=== PATIENT | female | born 1960 | race African-American/Black ===

== ENCOUNTER → 2016-12-09 | Outpatient (CLI) | payer MEDICARE, MEDICAID ==
[~2016-12-09] MED LIST: ALBUTEROL2.5 MG/3 M HHN; CIPRO500 MG PO; COREG CR10 MG PO; COREG25 MG ORAL; FUROSEMIDE20 M1 ORAL; IBUPROFEN600 MG ORAL; LASIX40 MG PO; LINZESS145 MCG PO; LOVASTATIN20 MG ORAL; METRONIDAZOLE500 MG PO; NASONEX17 GM NS; NORCO 5-325 TA1 EAC1 ORAL; NORCO 5-325 TA1 EACH ORAL; NORCO 5-325 TA1 EACH PO; PLAVIX75 MG PO; POTASSIUM CHLO10 ME1 PO; POTASSIUM CHLO20 ME3 PO; ROBAXIN-750750 MG PO; VASOTEC2.5 MG ORAL; VASOTEC2.5 MG PO; ZOFRAN4 MG ORAL; [UNRECOGNIZED DRUG - OTHER]; inhaler
[2016-12-09 12:07] LABS: BASOPHILS % (AUTO) 1.6 % (0.0-2.0); LYMPHOCYTES % (AUTO) 36.5 % (20.0-45.0); MEAN CORPUSCULAR HEMOGLOBIN 30.6 PG (27.0-31.0); MEAN CORPUSCULAR HGB CONC 31.8 G/DL (32.0-36.0); MEAN CORPUSCULAR VOLUME 96 FL (80-99); MEAN PLATELET VOLUME 10.3 FL (6.5-10.1); PLATELET COUNT 198 K/UL (150-450); RED CELL DISTRIBUTION WIDTH 13.4 % (11.6-14.8); WHITE BLOOD COUNT 6.2 K/UL (4.8-10.8)
[2016-12-09 12:26] LABS: ALANINE AMINOTRANSFERASE 16 U/L (3-33); ALBUMIN/GLOBULIN RATIO 1.3 (1.0-2.7); ANION GAP 20 (5-15); ASPARTATE AMINO TRANSFERASE 19 U/L (5-40); CALCIUM 9.5 mg/dL (8.6-10.2); CARBON DIOXIDE 20 mEQ/L (20-30); CHLORIDE 98 mEQ/L (98-107); CHOLESTEROL 203 mg/dL (< 200); CHOLESTEROL/HDL RATIO 2.8 (3.3-4.4); GLOMERULAR FILTRATION RATE > 60 mL/min (>60); HEMOLYSIS 5; LDL CHOLESTEROL (CALC.) 103 mg/dL (60-99); POTASSIUM 3.5 mEQ/L (3.4-4.9); SODIUM 138 mEQ/L (135-145)
== END | disposition home or self-care (01) ==
LOC: LAB 11:38
DX: I50.9 Heart failure, unspecified (principal); I10 Essential (primary) hypertension
CPT/HCPCS: 36415; 80053; 80061; 85025

== ENCOUNTER 2017-01-27 19:14 | Emergency (ER) | payer MEDICARE, OTHER ==
[~2017-01-27] VITALS: Ht 154.9 cm; Wt 53.1 kg
--- NOTE | 2017-01-27 20:04 | Emergency Room Report ---
History of Present Illness General Chief Complaint: Abdominal Pain Source: Patient Present Illness HPI Patient present with 2 days of nausea vomiting she also developed diarrhea today had 2 episodes Diffuse abdominal cramping Denies any fevers or chills denies any recent travel Denies any chest pain or shortness of breath patient reports that She had called her primary physician's office and was told to come to the emergency room denies any blood in the vomit or stool Describes the pain as 5/10 and cramping Allergies: Coded Allergies: No Known Allergies (Verified , 09/08/12) Patient History Past Medical History: see triage record Pertinent Family History: none : 4 Para: 2 Reviewed Nursing Documentation: PMH: Agreed, PSxH: Agreed Nursing Documentation-PMH Hx Cardiac Problems: Yes - Defibilator on L chest, Cardiomyopathy, CHF Hx Hypertension: Yes Hx Pacemaker: Yes - 2005 Hx Asthma: Yes Hx COPD: Yes Hx Cancer: No Hx Gastrointestinal Problems: Yes Hx Neurological Problems: Yes Hx Cerebrovascular Accident: Yes - over 10 years ago Hx Seizures: Yes - 30 years ago Hx Weakness: Yes - right-sided weakness Review of Systems All Other Systems: negative except mentioned in HPI Physical Exam Vital Signs Date Time Temp Pulse Resp B/P Pulse Ox O2 Delivery O2 Flow Rate FiO2 01/27/17 19:31 98.1 64 16 103/64 100 Room Air Sp02 EP Interpretation: reviewed, normal General Appearance: well appearing, no apparent distress Head: normocephalic, atraumatic Eyes: bilateral eye EOMI, bilateral eye PERRL ENT: hearing grossly normal, normal pharynx, TMs + canals normal, uvula midline Neck: full range of motion, supple, no meningismus, no bony tend Respiratory: lungs clear, normal breath sounds, no rhonchi, no respiratory distress, no retraction, no accessory muscle use Cardiovascular #1: normal peripheral pulses, regular rate, rhythm, no gallop, no JVD, no murmur Gastrointestinal: normal bowel sounds, soft, no mass, no organomegaly, non- distended, no guarding, no hernia, no pulsatile mass, no rebound, tenderness - While is and the patient fell sounds she showed signs of discomfort on palpation diffusely Genitourinary: no CVA tenderness Musculoskeletal: normal inspection Neurologic: oriented x3, responsive, motor strength/tone normal, sensory intact Skin: normal color, no rash, warm/dry, palpation normal Lymphatic: normal inspection, no adenopathy Medical Decision Making Diagnostic Impression: Primary Impression: Abdominal pain Additional Impression: Refusal of care by patient ER Course After further discussion and evaluation multiple differentials are considered Patient has also had previous history of diverticulitis Other differentials such as cholecystitis gastroenteritis, name a few are considered Patient had initial baseline blood work initiated mony ODT was ordered The nurse notified me that the patient wanted to see me, going back to see the patient She reports that she does not feel that she's being seen appropriately, she reports that I have seen her 3 times and have done the same thing in the past I informed the patient that I do not recall seeing her personally But I do see that she has had previous diverticulitis Patient however has had multiple CAT scan imaging, I did not feel given her hemodynamic stability in her clinical evaluation she required one at this time however we would be starting out with blood work, to get initial evaluation Patient also felt that I did not examine her as far as the same to her heart and I did notify her that that as well as doing well she was sitting in the chair, and also sent to the upper part of her chest Patient became verbally loud and aggressive I asked her to please not yell Patient began using profanity cursing using the F word And left the emergency room without any further workup Last Vital Signs Date Time Temp Pulse Resp B/P Pulse Ox O2 Delivery O2 Flow Rate FiO2 01/27/17 19:31 98.1 64 16 103/64 100 Room Air Status: unchanged Disposition: ELOPED Condition: Unknown PHUONG PETERSON D.O. Jan 27, 2017 20:03
[2017-01-27 20:25] VITALS: BP 115/80
== END 2017-01-27 20:25 | disposition left against medical advice (07) ==
LOC: EMR 20:01
DX: Z53.21 Procedure and treatment not carried out due to patient leaving prior to being seen by health care provider (principal); R10.9 Unspecified abdominal pain; I50.9 Heart failure, unspecified; I42.9 Cardiomyopathy, unspecified; I10 Essential (primary) hypertension; J45.909 Unspecified asthma, uncomplicated; J44.9 Chronic obstructive pulmonary disease, unspecified; I69.851 Hemiplegia and hemiparesis following other cerebrovascular disease affecting right dominant side; Z95.810 Presence of automatic (implantable) cardiac defibrillator; K57.90 Diverticulosis of intestine, part unspecified, without perforation or abscess without bleeding
CPT/HCPCS: 99282

== ENCOUNTER 2017-08-12 23:08 | Emergency (ER) | payer MEDICARE, OTHER ==
[~2017-08-12] VITALS: Ht 154.9 cm; Wt 55.8 kg
[2017-08-12 23:50] VITALS: BP 91/53
[2017-08-13] MEDS ORDERED: HYDROCODON-ACE1 EA15 ORAL (00:51)
--- NOTE | 2017-08-13 00:51 | Emergency Room Report ---
History of Present Illness General Chief Complaint: Lower Extremity Injury Source: Patient Present Illness HPI Is a 56-year-old female with no significant past medical history. She presents with chief complaint of left fifth toe pain. She actually kicked the vacuum aircraft cleaner. There is deformity to toe. Pain is 9/10. Worse with walking. No other injury. Allergies: Coded Allergies: No Known Allergies (Verified , 08/12/17) Patient History Past Medical History: see triage record, old chart reviewed Past Surgical History: other Pertinent Family History: none Social History: Denies: smoking Last Menstrual Period: n/a Now: No Immunizations: other Reviewed Nursing Documentation: PMH: Agreed, PSxH: Agreed Nursing Documentation-PMH Past Medical History: No History, Except For Hx Cardiac Problems: Yes - Defibilator on L chest, Cardiomyopathy, CHF Hx Hypertension: Yes Hx Pacemaker: Yes - 2005 Hx Asthma: Yes Hx COPD: Yes Hx Cancer: No Hx Gastrointestinal Problems: Yes - DIVERTICULITS Hx Neurological Problems: Yes Hx Cerebrovascular Accident: Yes - over 10 years ago Hx Seizures: Yes - 30 years ago Hx Weakness: Yes - right-sided weakness Review of Systems Eye: Denies: eye pain, blurred vision ENT: Denies: ear pain, nose congestion, throat swelling Respiratory: Denies: cough, shortness of breath Cardiovascular: Denies: chest pain, palpitations Gastrointestinal: Denies: abdominal pain, diarrhea, nausea, vomiting Musculoskeletal: Reports: joint pain, Denies: back pain Skin: Denies: rash Neurological: Denies: headache, numbness Endocrine: Denies: increased thirst, increased urine Hematologic/Lymphatic: Denies: easy bruising All Other Systems: negative except mentioned in HPI Physical Exam Vital Signs Date Time Temp Pulse Resp B/P (MAP) Pulse Ox O2 Delivery O2 Flow Rate FiO2 08/12/17 23:42 97.9 62 16 91/53 100 Room Air vitals normal Sp02 EP Interpretation: reviewed, normal General Appearance: well appearing, no apparent distress, alert Head: normocephalic, atraumatic Eyes: bilateral eye PERRL, bilateral eye EOMI ENT: hearing grossly normal, normal pharynx Neck: full range of motion, supple, no meningismus Respiratory: chest non-tender, lungs clear, normal breath sounds Cardiovascular #1: regular rate, rhythm, no murmur Gastrointestinal: normal bowel sounds, non tender, no mass, no organomegaly, no bruit, non-distended Musculoskeletal: back normal, gait/station normal, normal range of motion, other - left little toe with deformity Neurologic: alert, oriented x3, responsive Psychiatric: mood/affect normal Skin: warm/dry Procedures Joint Reduction Joint Reduction : Consent: Verbal Joint Reduction Site: other - Left fifth toe Procedural Sedation: No Reduction Attempts: One Pre-Procedure NV Exam: Yes Post-Procedure NV Exam: Yes Post Joint Reduction Film: joint reduced Patient Tolerated: Well Complications: None Progress I did a hematoma block. Toe straightened out and tammy taped to the fourth toe. Patient tolerated procedure without a problem. Medical Decision Making Diagnostic Impression: Primary Impression: Toe fracture, left Qualified Codes: S92.912A - Unspecified fracture of left toe(s), initial encounter for closed fracture ER Course She was a toe fracture. No dislocation. We'll discharge him. Other X-Ray Diagnostic Results Other X-Ray Diagnostic Results : X-Ray ordered: Left toe x-ray # of Views/Limited Vs Complete: 3 View Indication: Pain EP Interpretation: Yes Interpretation: no dislocation, no soft tissue swelling, other - Fracture of the fifth phalanx Impression: Other - Left fifth toe fracture Electronically Signed by: Electronically signed by Zackery Link MD Last Vital Signs Date Time Temp Pulse Resp B/P (MAP) Pulse Ox O2 Delivery O2 Flow Rate FiO2 08/12/17 23:50 97.9 63 16 91/53 100 Room Air Status: improved Disposition: HOME, SELF-CARE Condition: Stable Scripts Hydrocodone/Acetaminophen 5-325* (HYDROCODONE/ACETAMINOPHEN 5-325*) 1 Each Tablet 1 TAB ORAL Q6H Y for For Pain, #20 TAB 0 Refills Prov: ZACKERY LINK M.D. 08/13/17 Additional Instructions: Followup with your DrPapito in 7 days. Return it worse. ZACKERY LIKN M.D. Aug 13, 2017 00:51
[2017-08-13 01:05] VITALS: BP 105/55
--- NOTE | 2017-08-13 11:46 | Diagnostic Imaging Report ---
Indication: TRAUMA Technique: 3 views of the left fifth toe Comparison: None Findings: There is a fracture of the medial aspect of the head of the fifth proximal phalanx. This is minimally displaced. Impression: Positive for fifth proximal phalangeal head fracture This agrees with the emergency department physician report described in the electronic medical record
== END 2017-08-13 01:05 | disposition home or self-care (01) ==
LOC: EMR 23:59
DX: S92.502A Displaced unspecified fracture of left lesser toe(s), initial encounter for closed fracture (principal); W22.8XXA Striking against or struck by other objects, initial encounter; Y93.9 Activity, unspecified; Y99.9 Unspecified external cause status; M79.675 Pain in left toe(s)
CPT/HCPCS: 99283

== ENCOUNTER 2018-01-16 12:10 | Outpatient (CLI) | payer MEDICARE, OTHER ==
[~2018-01-16 12:10] MED LIST changes: +HYDROCODON-ACE1 EA15 ORAL
== END 2018-01-16 14:10 | disposition home or self-care (01) ==
LOC: LAB 12:10
DX: K85.90 Acute pancreatitis without necrosis or infection, unspecified (principal)

== ENCOUNTER 2019-04-10 14:43 | Inpatient (IN) | payer MEDICARE, OTHER ==
[~2019-04-10] VITALS: Ht 165.1 cm; Wt 63.6 kg
[2019-04-10 15:00] VITALS: BP 104/67
--- NOTE | 2019-04-10 15:41 | Emergency Room Report ---
History of Present Illness General Chief Complaint: Abdominal Pain Source: Patient Present Illness HPI Patient presents with left lower quadrant pain that began yesterday. It is constant and severe. Its more anteriorly but radiates to the left flank area. She took a [place] which helped for short period of time and she took Tylenol last night. She has had this pain with diverticulitis in the past. She denies any fevers or chills. There is no nausea vomiting diarrhea hematemesis coffee grounds or blood in stool. She denies dysuria. She denies having renal stones in the past. Patient also has some R upper back/arm pain with associated numbness of forearm. No associated injuries. She states she had a stroke several years ago. Also has a implanted defibrillator for cardiomyopathy. Last month it was not working properly and she had problems with tachycardia. During the day today she felt some shortness of breath but no chest pain. There were no palpitations also. Allergies: Coded Allergies: No Known Allergies (Verified , 08/12/17) Patient History Past Medical History: see triage record Past Surgical History: pacemaker - IVCD Social History: Denies: smoking, alcohol use, drug use Social History Narrative from home Now: No Reviewed Nursing Documentation: PMH: Agreed; PSxH: Agreed Nursing Documentation-PMH Past Medical History: No History, Except For Hx Cardiac Problems: Yes - Defibilator on L chest, Cardiomyopathy, CHF Hx Hypertension: Yes Hx Pacemaker: Yes - 2005 Hx Asthma: Yes Hx COPD: Yes Hx Cancer: No Hx Gastrointestinal Problems: Yes - DIVERTICULITS Hx Neurological Problems: Yes Hx Cerebrovascular Accident: Yes - over 10 years ago Hx Seizures: Yes - 30 years ago Hx Weakness: Yes - right-sided weakness Review of Systems All Other Systems: negative except mentioned in HPI Physical Exam Vital Signs Date Time Temp Pulse Resp B/P (MAP) Pulse Ox O2 Delivery O2 Flow Rate FiO2 04/10/19 14:51 98.2 70 20 114/63 (80) 100 Room Air Sp02 EP Interpretation: reviewed, normal General Appearance: well appearing, no apparent distress, GCS 15 Head: normocephalic Eyes: bilateral eye normal inspection, bilateral eye PERRL, bilateral eye EOMI ENT: moist mucus membranes Neck: supple Respiratory: lungs clear, normal breath sounds Cardiovascular #1: regular rate, rhythm Cardiovascular #2: 2+ radial (R) Gastrointestinal: normal inspection, normal bowel sounds, no mass, non- distended, no rebound, guarding - Left lower quadrant, tenderness Musculoskeletal: back normal, gait/station normal, normal range of motion Neurologic: alert, oriented x3 Skin: normal inspection, warm/dry Medical Decision Making Diagnostic Impression: Primary Impression: Abdominal pain Qualified Codes: R10.32 - Left lower quadrant pain Additional Impression: Right arm pain ER Course Patient presents with left lower quadrant and flank pain for 2 days. Differential includes renal stone, diverticulitis, urinary tract infection, pyelonephritis amongst others. Evaluation will be with EKG, chest x-ray CT the abdomen and pelvis and labs. The patient will receive gentle IV hydration, Reglan, Benadryl and morphine. Based on the exam right now most likely she will need to be admitted to the hospital for observation and possible surgical intervention as diverticulitis is high in the list. Patient has the comorbidity of cardiomyopathy. Difficulty starting an IV. EKG without injury. Chest x-ray with pacemaker. Labs with normal white count. CMP normal. Lipase normal. Urinalysis unremarkable. Patient required several doses of pain medication. CT abdomen without surgical pathology. Etiology of the pain is unclear. Patient is to be admitted to the hospital for further evaluation. Pain somewhat improved. Abdomen with tenderness, no guarding or rebound and no referred pain. Admit medical floor Dr. Montoya. Laboratory Tests Test 04/10/19 16:55 White Blood Count 4.3 K/UL (4.8-10.8) L Red Blood Count 4.07 M/UL (4.20-5.40) L Hemoglobin 12.5 G/DL (12.0-16.0) Hematocrit 36.5 % (37.0-47.0) L Mean Corpuscular Volume 90 FL (80-99) Mean Corpuscular Hemoglobin 30.7 PG (27.0-31.0) Mean Corpuscular Hemoglobin Concent 34.2 G/DL (32.0-36.0) Red Cell Distribution Width 11.8 % (11.6-14.8) Platelet Count 160 K/UL (150-450) Mean Platelet Volume 8.4 FL (6.5-10.1) Neutrophils (%) (Auto) 44.7 % (45.0-75.0) L Lymphocytes (%) (Auto) 45.9 % (20.0-45.0) H Monocytes (%) (Auto) 5.6 % (1.0-10.0) Eosinophils (%) (Auto) 1.9 % (0.0-3.0) Basophils (%) (Auto) 2.0 % (0.0-2.0) Prothrombin Time 11.1 SEC (9.30-11.50) Prothrombin Time INR 1.0 (0.9-1.1) PTT 29 SEC (23-33) Sodium Level 142 MMOL/L (136-145) Potassium Level 3.5 MMOL/L (3.5-5.1) Chloride Level 105 MMOL/L (98-107) Carbon Dioxide Level 24 MMOL/L (21-32) Anion Gap 13 mmol/L (5-15) Blood Urea Nitrogen 20 mg/dL (7-18) H Creatinine 1.3 MG/DL (0.55-1.30) Estimate Glomerular Filtration Rate 51.4 mL/min (>60) Glucose Level 92 MG/DL (74-106) Calcium Level 9.9 MG/DL (8.5-10.1) Total Bilirubin 0.4 MG/DL (0.2-1.0) Aspartate Amino Transferase (AST) 25 U/L (15-37) Alanine Aminotransferase (ALT) 35 U/L (12-78) Alkaline Phosphatase 139 U/L (46-116) H Troponin I 0.015 ng/mL (0.000-0.056) Total Protein 8.4 G/DL (6.4-8.2) H Albumin 4.4 G/DL (3.4-5.0) Globulin 4.0 g/dL Albumin/Globulin Ratio 1.1 (1.0-2.7) Lipase 107 U/L (73-393) EKG Diagnostic Results Rate: normal Rhythm: NSR ST Segments: no acute changes Rhythm Strip Diag. Results EP Interpretation: yes Rhythm: NSR, no PVC's, no ectopy Chest X-Ray Diagnostic Results Chest X-Ray Diagnostic Results : Chest X-Ray Ordered: Yes # of Views/Limited/Complete: 1 View Indication: Other EP Interpretation: Yes Interpretation: no consolidation, no effusion, no pneumothorax, other - pacemaker CT/MRI/US Diagnostic Results CT/MRI/US Diagnostic Results : Imaging Test Ordered: CT abd pelvis Impression no acute findings Last Vital Signs Date Time Temp Pulse Resp B/P (MAP) Pulse Ox O2 Delivery O2 Flow Rate FiO2 04/11/19 00:00 97.9 62 18 110/62 (78) 100 04/10/19 22:20 Room Air Status: improved Disposition: ADMITTED INPATIENT Condition: Serious Stephen Rees MD Apr 10, 2019 15:41
[2019-04-10] MEDS ORDERED: Isovue-300 100ml vial INJ PRN (15:45)
[2019-04-10] MEDS ORDERED: DiphenhydrAMINE 50mg/ml Inj IVP ONE (15:45)
[2019-04-10] MEDS ORDERED: Metoclopramide 10mg/2ml Inj IVP ONE (15:45)
[2019-04-10] MEDS ORDERED: Morphine Sulfate 4mg/ml Inj (IV USE ONLY) IVP ONE (15:45)
[2019-04-10] MEDS: Sodium Chloride 550 ML IV SCH ×2 (16:00→19:25)
[2019-04-10] MEDS ORDERED: Morphine Sulfate 10mg/ml Inj IM ONE (16:30)
--- NOTE | 2019-04-10 16:53 | Diagnostic Imaging Report ---
EXAM: XR Chest, 1 View CLINICAL HISTORY: ABD PAIN TECHNIQUE: Frontal view of the chest. COMPARISON: Chest x-ray 04/30/15 FINDINGS: Lungs: Unremarkable. No consolidation. Pleural space: Unremarkable. No pneumothorax. Heart: Unremarkable. No cardiomegaly. Mediastinum: Unremarkable. Bones/joints: Unremarkable. Tubes, lines and devices: Cardiac pacemaker. IMPRESSION: No acute findings.
[2019-04-10 17:15] LABS: EOSINOPHILS % (AUTO) 1.9 % (0.0-3.0); HEMATOCRIT 36.5 % (37.0-47.0); HEMOGLOBIN 12.5 G/DL (12.0-16.0); LYMPHOCYTES % (AUTO) 45.9 % (20.0-45.0); MEAN CORPUSCULAR VOLUME 90 FL (80-99); MONOCYTES % (AUTO) 5.6 % (1.0-10.0); NEUTROPHILS % (AUTO) 44.7 % (45.0-75.0); PLATELET COUNT 160 K/UL (150-450); RED BLOOD COUNT 4.07 M/UL (4.20-5.40); RED CELL DISTRIBUTION WIDTH 11.8 % (11.6-14.8); WHITE BLOOD COUNT 4.3 K/UL (4.8-10.8)
[2019-04-10 17:26] LABS: ANION GAP 13 mmol/L (5-15); BLOOD UREA NITROGEN 20 mg/dL (7-18); CALCIUM 9.9 MG/DL (8.5-10.1); CARBON DIOXIDE 24 MMOL/L (21-32); CHLORIDE 105 MMOL/L (98-107); CREATININE 1.3 MG/DL (0.55-1.30); POTASSIUM 3.5 MMOL/L (3.5-5.1); SODIUM 142 MMOL/L (136-145)
[2019-04-10 17:30] LABS: ALANINE AMINOTRANSFERASE 35 U/L (12-78); ALBUMIN 4.4 G/DL (3.4-5.0); ALBUMIN/GLOBULIN RATIO 1.1 (1.0-2.7); ALKALINE PHOSPHATASE 139 U/L (46-116); ASPARTATE AMINO TRANSFERASE 25 U/L (15-37); BILIRUBIN,TOTAL 0.4 MG/DL (0.2-1.0)
[2019-04-10 19:30] VITALS: BP 114/85
--- NOTE | 2019-04-10 19:54 | Diagnostic Imaging Report ---
EXAM: CT Abdomen and Pelvis Without Intravenous Contrast CLINICAL HISTORY: ABD PAIN TECHNIQUE: Axial computed tomography images of the abdomen and pelvis without intravenous contrast. CTDI is 0.15, 11.66 mGy and DLP is 614 mGy-cm. One or more of the following dose reduction techniques were used: automated exposure control, adjustment of the mA and/or kV according to patient size, use of iterative reconstruction technique. COMPARISON: 05/28/2016 FINDINGS: Lung bases: Unremarkable. No mass. No consolidation. Heart: Small pericardial effusion. Mediastinum: Small hiatal hernia. ABDOMEN: Liver: Unremarkable. Gallbladder and bile ducts: Unremarkable. No calcified stones. Pancreas: Unremarkable. Spleen: Unremarkable. Adrenals: Unremarkable. Kidneys and ureters: Unremarkable. No obstructing stones. No hydronephrosis. Stomach and bowel: Unremarkable. Bowel is nondilated. PELVIS: Appendix: No findings to suggest acute appendicitis. Bladder: Unremarkable. No calcified stones. Reproductive: Uterus is absent. ABDOMEN and PELVIS: Intraperitoneal space: Unremarkable. No free air. Bones/joints: No acute osseous abnormality. Similar indeterminate sclerotic focus in the left superior pubic ramus is favored to represent a bone island. Soft tissues: Small fat-containing ventral lower abdominal wall hernia. Vasculature: Unremarkable. No abdominal aortic aneurysm. Lymph nodes: Unremarkable. Tubes, lines and devices: Cardiac pacemaker. IMPRESSION: No acute findings.
[2019-04-10] MEDS ORDERED: Morphine Sulfate 4mg/ml Inj (IV USE ONLY) IVP PRN (20:00)
[2019-04-10] MEDS ORDERED: Cefepime HCl 1 GM in D5W 55 ML IVPB ONE (20:00)
[2019-04-10] MEDS ORDERED: NORCO 10-325 T1 EACH ORAL (21:10)
[2019-04-10] MEDS ORDERED: FUROSEMIDE40 MG ORAL (21:10)
[2019-04-10] MEDS ORDERED: MIRALAX119 GM PO (21:10)
[2019-04-10] MEDS ORDERED: NORVASC2.5 MG ORAL (21:10)
[2019-04-10 22:00] VITALS: BP 114/66
[2019-04-10] MEDS ORDERED: Miralax 17gm pkt ORAL PRN (23:15)
[2019-04-10] MEDS ORDERED: HYDROcodone/Acetamin 10/325 tab ORAL PRN (23:15)
[2019-04-11] VITALS: BP 110/62
[2019-04-11] MEDS ORDERED: Miralax 17gm pkt ORAL PRN
[2019-04-11] MEDS: Atorvastatin 20mg tab ORAL SCH ×2 (00:21→20:33)
[2019-04-11] MEDS: Morphine Sulfate 4mg/ml Inj (IV USE ONLY) IVP PRN ×4 (00:22→17:24)
[2019-04-11 04:00] VITALS: BP 114/67
[2019-04-11 06:53] LABS: HEMATOCRIT 31.8 % (37.0-47.0); HEMOGLOBIN 10.5 G/DL (12.0-16.0); MEAN CORPUSCULAR VOLUME 94 FL (80-99); PLATELET COUNT 136 K/UL (150-450); RED BLOOD COUNT 3.38 M/UL (4.20-5.40); RED CELL DISTRIBUTION WIDTH 12.7 % (11.6-14.8); WHITE BLOOD COUNT 3.3 K/UL (4.8-10.8)
[2019-04-11 07:03] LABS: ALANINE AMINOTRANSFERASE 31 U/L (12-78); ALBUMIN 3.5 G/DL (3.4-5.0); ALKALINE PHOSPHATASE 105 U/L (46-116); ANION GAP 9 mmol/L (5-15); ASPARTATE AMINO TRANSFERASE 22 U/L (15-37); BILIRUBIN,TOTAL 0.6 MG/DL (0.2-1.0); BLOOD UREA NITROGEN 15 mg/dL (7-18); CALCIUM 9.3 MG/DL (8.5-10.1); CARBON DIOXIDE 27 MMOL/L (21-32); CHLORIDE 107 MMOL/L (98-107); CREATININE 1.1 MG/DL (0.55-1.30); POTASSIUM 3.2 MMOL/L (3.5-5.1); SODIUM 143 MMOL/L (136-145)
[2019-04-11 08:00] VITALS: BP 91/57
[2019-04-11] MEDS ORDERED: Enalapril 2.5mg tab ORAL SCH (09:00)
[2019-04-11] MEDS ORDERED: Carvedilol 25mg Tab ORAL SCH (09:00)
[2019-04-11] MEDS: Furosemide 40mg tab ORAL SCH ×2 (09:00→17:24)
[2019-04-11] MEDS ORDERED: NS 500ML ONE (09:07)
[2019-04-11] MEDS ORDERED: 1/2 NS 1000ml IV ONE (09:07)
[2019-04-11 09:53] LABS: FERRITIN 148 NG/ML (8-388); GAMMA GLUTAMYL TRANSPEPTIDASE 18 U/L (5-85); PHOSPHORUS 3.7 MG/DL (2.5-4.9)
[2019-04-11 10:06] LABS: % IRON SATURATION 38 % (15-50); IRON 113 ug/dL (50-175); TOTAL IRON BINDING CAPACITY 294 ug/dL (250-450)
[2019-04-11] MEDS ORDERED: Sorbitol Solution UD 30ml ORAL SCH (10:31)
[2019-04-11 12:00] VITALS: BP 105/59
[2019-04-11] MEDS: HYDROcodone/Acetamin 5/325 tab ORAL PRN ×2 (13:20→20:35)
[2019-04-11 13:58] LABS: BILIRUBIN, URINE NEGATIVE (NEGATIVE); COLOR,URINE PALE YELLOW; GLUCOSE, URINE (UA) NEGATIVE (NEGATIVE); KETONES,URINE NEGATIVE (NEGATIVE); LEUKOCYTE ESTERASE ,URINE 2+ (NEGATIVE); NITRITE,URINE NEGATIVE (NEGATIVE); PH,URINE 6 (4.5-8.0); PROTEIN,URINE NEGATIVE (NEGATIVE); UROBILINOGEN,URINE NORMAL MG/DL (0.0-1.0)
[2019-04-11 13:59] LABS: APPEARANCE,URINE SLIGHTLY CLOUDY
--- NOTE | 2019-04-11 13:59 | General Progress Note ---
Assessment/Plan Assessment/Plan: (1) Abdominal pain (2) Diverticulitis Patient will be continued on Morphine and norco D/w Dr. Rico and he concurred. Subjective Date patient seen: Apr 11, 2019 Time patient seen: 13:56 Constitutional: Reports: weakness HEENT: Reports: no symptoms Cardiovascular: Reports: no symptoms Respiratory: Reports: no symptoms Gastrointestinal/Abdominal: Reports: abdominal pain Genitourinary: Reports: no symptoms Neurologic/Psychiatric: Reports: weakness Endocrine: Reports: no symptoms Hematologic/Lymphatic: Reports: no symptoms Allergies: Coded Allergies: No Known Allergies (Verified , 08/12/17) Subjective Patient is a known patient from prior admission and has been admitted under the care fo Dr. Montoya with Abd pain. She was started on morphine 4mg IV Q4H PRN and norco 10/325mg PO 1 tab BID PRN. Objective Last 24 Hour Vital Signs Date Time Temp Pulse Resp B/P (MAP) Pulse Ox O2 Delivery O2 Flow Rate FiO2 04/11/19 12:00 97.2 62 18 105/59 (74) 100 04/11/19 09:00 94/53 04/11/19 09:00 60 94/53 04/11/19 09:00 60 94/53 04/11/19 09:00 Room Air 04/11/19 08:00 97.2 60 91/57 (68) 100 04/11/19 04:00 98.1 63 18 114/67 (83) 98 04/11/19 00:00 97.9 62 18 110/62 (78) 100 04/10/19 22:20 Room Air 04/10/19 22:00 97.6 60 18 114/66 (82) 100 04/10/19 21:13 98.4 72 18 110/52 98 Room Air 04/10/19 20:26 98.4 04/10/19 19:30 98.0 62 18 114/85 100 Room Air 04/10/19 15:00 98.0 60 18 104/67 100 Room Air 04/10/19 15:00 60 18 Room Air 04/10/19 14:51 98.2 70 20 114/63 (80) 100 Room Air Intake and Output 04/10/19 04/11/19 19:00 07:00 Intake Total 0 ml 100 ml Balance 0 ml 100 ml Intake Oral 0 ml Other 100 ml # Voids 2 Laboratory Tests 04/10/19 16:55: White Blood Count 4.3L, Red Blood Count 4.07L, Hemoglobin 12.5, Hematocrit 36.5L , Mean Corpuscular Volume 90, Mean Corpuscular Hemoglobin 30.7, Mean Corpuscular Hemoglobin Concent 34.2, Red Cell Distribution Width 11.8, Platelet Count 160, Mean Platelet Volume 8.4, Neutrophils (%) (Auto) 44.7L, Lymphocytes ( %) (Auto) 45.9H, Monocytes (%) (Auto) 5.6, Eosinophils (%) (Auto) 1.9, Basophils (%) (Auto) 2.0, Prothrombin Time 11.1, Prothromb Time International Ratio 1.0, Activated Partial Thromboplast Time 29, Sodium Level 142, Potassium Level 3.5, Chloride Level 105, Carbon Dioxide Level 24, Anion Gap 13, Blood Urea Nitrogen 20H, Creatinine 1.3, Estimat Glomerular Filtration Rate 51.4, Glucose Level 92, Calcium Level 9.9, Total Bilirubin 0.4, Aspartate Amino Transf (AST/SGOT) 25, Alanine Aminotransferase (ALT/SGPT) 35, Alkaline Phosphatase 139H, Troponin I 0.015, Total Protein 8.4H, Albumin 4.4, Globulin 4.0, Albumin/Globulin Ratio 1.1, Lipase 107 04/11/19 04:45: White Blood Count 3.3L, Red Blood Count 3.38L, Hemoglobin 10.5L, Hematocrit 31.8L, Mean Corpuscular Volume 94, Mean Corpuscular Hemoglobin 31.1H, Mean Corpuscular Hemoglobin Concent 33.1, Red Cell Distribution Width 12.7, Platelet Count 136L, Mean Platelet Volume 10.3H, Neutrophils (%) (Auto) , Lymphocytes (% ) (Auto) , Monocytes (%) (Auto) , Eosinophils (%) (Auto) , Basophils (%) (Auto) , Sodium Level 143, Potassium Level 3.2L, Chloride Level 107, Carbon Dioxide Level 27, Anion Gap 9, Blood Urea Nitrogen 15, Creatinine 1.1, Estimat Glomerular Filtration Rate > 60, Glucose Level 91, Calcium Level 9.3, Total Bilirubin 0.6, Aspartate Amino Transf (AST/SGOT) 22, Alanine Aminotransferase ( ALT/SGPT) 31, Alkaline Phosphatase 105, Total Protein 6.9, Albumin 3.5, Globulin 3.4, Albumin/Globulin Ratio 1.0, Differential Total Cells Counted 100, Neutrophils % (Manual) 49, Lymphocytes % (Manual) 43, Monocytes % (Manual) 6, Eosinophils % (Manual) 2, Basophils % (Manual) 0, Band Neutrophils 0, Platelet Estimate DecreasedL, Platelet Morphology Normal, Red Blood Cell Morphology Normal, Hemoglobin A1c 5.2, Uric Acid 6.7, Phosphorus Level 3.7, Magnesium Level 1.5L, Iron Level 113, Total Iron Binding Capacity 294, Percent Iron Saturation 38, Unsaturated Iron Binding 181, Ferritin 148, Gamma Glutamyl Transpeptidase 18, C-Reactive Protein, Quantitative < 0.4, Vitamin B12 Level 342 , Folate 11.4 04/11/19 13:32: Urine Color [Pending], Urine Appearance [Pending], Urine pH [Pending], Urine Specific [place] [Pending], Urine Protein [Pending], Urine Glucose (UA) [Pending ], Urine Ketones [Pending], Urine Blood [Pending], Urine Nitrite [Pending], Urine Bilirubin [Pending], Urine Urobilinogen [Pending], Urine Leukocyte Esterase [Pending], Urine RBC [Pending], Urine WBC [Pending], Urine Squamous Epithelial Cells [Pending], Urine Bacteria [Pending] Height (Feet): 5 Height (Inches): 1.00 Weight (Pounds): 140 General Appearance: no apparent distress, alert EENT: PERRL/EOMI, normal ENT inspection Neck: non-tender, normal alignment Cardiovascular: normal rate, regular rhythm Respiratory/Chest: lungs clear, normal breath sounds Abdomen: tender Extremities: non-tender Edema: no edema noted Arm (L), no edema noted Arm (R), no edema noted Leg (L), no edema noted Leg (R), no edema noted Pedal (L), no edema noted Pedal (R), no edema noted Generalized Neurologic: alert, oriented x 3 Skin: warm/dry Dameon Silva Apr 11, 2019 13:59
[2019-04-11 16:00] VITALS: BP 97/66
--- NOTE | 2019-04-11 17:15 | Consultation ---
DATE OF CONSULTATION: 04/11/2019 INFECTIOUS DISEASE CONSULT CONSULTING PHYSICIAN: Josep Henderson M.D. PRIMARY ATTENDING: Мария Montoya M.D. REASON FOR CONSULT: Abdominal pain. HISTORY OF PRESENT ILLNESS: This is a 58-year-old female admitted last evening complaining of abdominal pain in lower abdomen. The patient states that she had history of diverticulitis before. She had history of abdominal pain and is followed in outpatient by Dr. Macario. Has nausea, but no vomiting. No diarrhea. No blood in stool. PAST MEDICAL HISTORY: Significant for COPD, history of diverticulitis, history of CVA with right-sided weakness, anemia, chronic pain syndrome. Has pacemaker. ALLERGIES: No known drug allergies. MEDICATIONS: Getting amlodipine, carvedilol, Plavix, enalapril, Lasix, potassium chloride, MiraLAX, Weiner, Zofran, sodium chloride, atorvastatin. Got a dose of cefepime in the ER. REVIEW OF SYSTEMS: No fever. No chills. No chest pain. No coughing. Lower abdominal pain. No dysuria. PAST SURGICAL HISTORY: The patient says that history of cholecystectomy, has hysterectomy, history of colon polyps removed during colonoscopy 3 years ago. PHYSICAL EXAMINATION: VITAL SIGNS: Temperature 97.6, pulse 62, blood pressure 105/59. GENERAL APPEARANCE: No acute distress. Seems to be thin. HEAD AND NECK: No oral lesion. Slightly dry mouth. HEART: Normal rate. Has pacemaker. LUNGS: Clear. ABDOMEN: Soft. Tender, more in the lower quadrants. EXTREMITIES: Has no edema. LABORATORY AND DIAGNOSTIC DATA: Sodium 143, potassium 3.2, chloride 107, bicarbonate 27, BUN 15, creatinine 1.5. WBC 3.3, hemoglobin 10.5, hematocrit 31.8, platelets 136. A CT scan of the abdomen and pelvis, no acute findings. Chest x-ray, no acute finding. IMPRESSION: Abdominal pain. The patient may have irritable bowel syndrome. Has chronic pain syndrome. The patient has history of smoking and cocaine abuse in the past. Has history of diverticulitis. Has anemia, COPD, status post pacemaker defibrillator. RECOMMENDATION: Observe off antibiotic. The patient will be followed by GI specialist. At the end of my exam, I thank Dr. Montoya for involving me in the care of this patient. Josep Henderson M.D. DR: VÍCTOR JOB#: [id number] CC:
[2019-04-11 20:00] VITALS: BP 98/48
[2019-04-11] MEDS ORDERED: POLYETHYLENE GL17 GM ORAL (20:28)
--- NOTE | 2019-04-11 20:34 | General Progress Note ---
Assessment/Plan Assessment/Plan: GI CONSULT DICTATED THANK YOU Abdulaziz PATEL MD Subjective Allergies: Coded Allergies: No Known Allergies (Verified , 08/12/17) Objective Last 24 Hour Vital Signs Date Time Temp Pulse Resp B/P (MAP) Pulse Ox O2 Delivery O2 Flow Rate FiO2 04/11/19 16:00 97.7 60 18 97/66 (76) 98 04/11/19 12:00 97.2 62 18 105/59 (74) 100 04/11/19 09:00 94/53 04/11/19 09:00 60 94/53 04/11/19 09:00 60 94/53 04/11/19 09:00 Room Air 04/11/19 08:00 97.2 60 91/57 (68) 100 04/11/19 04:00 98.1 63 18 114/67 (83) 98 04/11/19 00:00 97.9 62 18 110/62 (78) 100 04/10/19 22:20 Room Air 04/10/19 22:00 97.6 60 18 114/66 (82) 100 04/10/19 21:13 98.4 72 18 110/52 98 Room Air Intake and Output 04/10/19 04/11/19 19:00 07:00 Intake Total 0 ml 100 ml Balance 0 ml 100 ml Intake Oral 0 ml Other 100 ml # Voids 2 Laboratory Tests 04/11/19 04:45: White Blood Count 3.3L, Red Blood Count 3.38L, Hemoglobin 10.5L, Hematocrit 31.8L, Mean Corpuscular Volume 94, Mean Corpuscular Hemoglobin 31.1H, Mean Corpuscular Hemoglobin Concent 33.1, Red Cell Distribution Width 12.7, Platelet Count 136L, Mean Platelet Volume 10.3H, Neutrophils (%) (Auto) , Lymphocytes (% ) (Auto) , Monocytes (%) (Auto) , Eosinophils (%) (Auto) , Basophils (%) (Auto) , Differential Total Cells Counted 100, Neutrophils % (Manual) 49, Lymphocytes % (Manual) 43, Monocytes % (Manual) 6, Eosinophils % (Manual) 2, Basophils % ( Manual) 0, Band Neutrophils 0, Platelet Estimate DecreasedL, Platelet Morphology Normal, Red Blood Cell Morphology Normal, Sodium Level 143, Potassium Level 3.2L, Chloride Level 107, Carbon Dioxide Level 27, Anion Gap 9, Blood Urea Nitrogen 15, Creatinine 1.1, Estimat Glomerular Filtration Rate > 60 , Glucose Level 91, Hemoglobin A1c 5.2, Uric Acid 6.7, Calcium Level 9.3, Phosphorus Level 3.7, Magnesium Level 1.5L, Iron Level 113, Total Iron Binding Capacity 294, Percent Iron Saturation 38, Unsaturated Iron Binding 181, Ferritin 148, Total Bilirubin 0.6, Gamma Glutamyl Transpeptidase 18, Aspartate Amino Transf (AST/SGOT) 22, Alanine Aminotransferase (ALT/SGPT) 31, Alkaline Phosphatase 105, C-Reactive Protein, Quantitative < 0.4, Total Protein 6.9, Albumin 3.5, Globulin 3.4, Albumin/Globulin Ratio 1.0, Vitamin B12 Level 342, Folate 11.4 04/11/19 13:32: Urine Color Pale yellow, Urine Appearance Slightly cloudy, Urine pH 6, Urine Specific [place] 1.015, Urine Protein Negative, Urine Glucose (UA) Negative, Urine Ketones Negative, Urine Blood 1+H, Urine Nitrite Negative, Urine Bilirubin Negative, Urine Urobilinogen Normal, Urine Leukocyte Esterase 2+H, Urine RBC 0-2, Urine WBC 5-10H, Urine Squamous Epithelial Cells ModerateH, Urine Bacteria Few Height (Feet): 5 Height (Inches): 1.00 Weight (Pounds): 140 Julian Macario MD Apr 11, 2019 20:34
--- NOTE | 2019-04-12 00:15 | History and Physical Report ---
DATE OF ADMISSION: 04/10/2019 HISTORY OF PRESENT ILLNESS: This is a long-term office patient who is admitted for abdominal pain, diverticulitis, and low potassium as well. The patient has been having abdominal pain for one day. There is nausea and anorexia. No appetite for two to three days. The patient was admitted to rule out diverticulitis. The patient has a history of diverticulosis and diverticulitis. The patient also complains of left arm pain and also has a chronic back pain and chronic pain syndrome. Has a history of alcohol and drug abuse. Denies orthopnea. Denies shortness of breath. Denies cough. PAST MEDICAL HISTORY: CHF, hypertension, diverticulosis, hyperlipidemia, and constipation. PAST SURGICAL HISTORY: Hysterectomy and cholecystectomy. SOCIAL HISTORY: History of drug abuse. History of alcohol abuse. History of smoking. MEDICATIONS: Linzess, Lasix, Plavix, Coreg, and amlodipine. FAMILY HISTORY: Noncontributory. REVIEW OF SYSTEMS: HEENT: Denies headaches. RESPIRATORY: Denies shortness of breath. Denies cough. CARDIOVASCULAR: Denies chest pain or orthopnea. GASTROINTESTINAL: Reports nausea, abdominal pain, and anorexia for two to three days. Has chronic pain syndrome. EXTREMITIES: also has right arm pain and numbness. CENTRAL NERVOUS SYSTEM: Denies change in vision or speech pattern. PHYSICAL EXAMINATION: VITAL SIGNS: Temperature is 97.2, pulse is 60, blood pressure 91/57, and repeated blood pressure 105/59. HEENT: PERRLA. NECK: Supple. CHEST: Clear to auscultation. CARDIOVASCULAR: Regular rate and rhythm. No murmurs or extra sounds. ABDOMEN: Soft and nontender. Mild epigastric tenderness. No rebound. EXTREMITIES: No edema. Reflexes equal on both sides. Moves all four extremities. LABORATORY DATA: WBC of 4.3, hemoglobin 12.5, and platelet count 160,000. Sodium 142, potassium 3.5, BUN of 20, and creatinine 1.3. ASSESSMENT AND PLAN: Abdominal pain, diverticulitis, and hypokalemia. I have asked Dr. Stein, Dr. Armstrong, Dr. Josep Henderson, and Dr. iRco to see the patient for the pain management control as well as to rule out diverticulitis Dr. Josep Rahban as well as abdominal pain. We have consulted Dr. Armstrong, and Dr. Stein has been consulted for low potassium. Мария Montoya M.D. DR: PHOEBE JOB#: [id number] CC:
[2019-04-12] MEDS: Morphine Sulfate 4mg/ml Inj (IV USE ONLY) IVP PRN ×4 (00:33→20:21)
[2019-04-12] MEDS: HYDROcodone/Acetamin 5/325 tab ORAL PRN (02:46)
--- NOTE | 2019-04-12 03:15 | Consultation ---
DATE OF CONSULTATION: 04/11/2019 GASTROENTEROLOGY CONSULTATION CONSULTING PHYSICIAN: Julian Macario M.D. CHIEF COMPLAINT: I was asked to see this patient by Dr. Мария Montoya for evaluation of abdominal pain. HISTORY OF PRESENT ILLNESS: The patient is a pleasant 58-year-old woman who comes in to the hospital with previous history of nausea. She also complains of some lower back pain for 2 days. He has no diarrhea, vomiting, or hematochezia. The patient had been seen by me in the past as an outpatient and she has a longstanding history of constipation, treated as an outpatient with doses of Linzess and polyethylene glycol. Her last colonoscopy was in 2015 and the colonoscopy was remarkable for diffuse melanosis coli, had a diminutive sigmoid colon polyp, which showed tubular adenoma with pathology. Her last endoscopy was in 10/2015 and the endoscopy showed a 2 cm hiatal hernia and biopsies were negative for Helicobacter pylori. PAST MEDICAL HISTORY: Remarkable for history of cardiomegaly, congestive heart failure, history of ventricular tachycardia, status post ICD/pacemaker placement, history of stroke previously on Coumadin, now on Plavix, history of abnormal liver tests , chronic constipation, melanosis coli, abnormal colon polyp, 2 cm hiatal hernia. PAST SURGICAL HISTORY: Status post cholecystectomy, status post hysterectomy. ALLERGIES: No known drug allergies. FAMILY HISTORY: Positive for lupus in her sister, heart disease in mother, and heart disease requiring defibrillator in her daughter. SOCIAL HISTORY: The patient was a heavy smoker in year 2010, but she discontinued it. She smoked 1 to 2 cigarettes a day. She claims she also used crack cocaine, but she tells me she discontinued in 2010. She is and she has 2 daughters. REVIEW OF SYSTEMS: Otherwise negative. PHYSICAL EXAMINATION: GENERAL: A pleasant woman, seen in her room. HEENT: Normocephalic and atraumatic. Dentition is fair. NECK: Supple. CHEST: Clear to auscultation. CARDIOVASCULAR: Revealed a regular rate. ABDOMEN: Soft with good bowel sounds. There is some tenderness in the right side of the abdomen, more so in the right lower quadrant and right upper quadrant without significant guarding or rebound. EXTREMITIES: Revealed no edema. LABORATORY DATA: Noted. ASSESSMENT: This patient presents with abdominal pain of unclear etiology. She does have a longstanding history of constipation, but with the bowel regimen, she has been going to bathroom regularly. She has been admitted with further diagnosis of diverticulitis, but CT scan does not mention this finding and in addition, her colonoscopy from 2016 was not remarkable for any significant diverticulosis. As such, I would doubt this diagnosis. She has not had a urinalysis and therefore, check UA to rule out any urinary tract pathology such as kidney stones that can cause pain. Other etiologies include ovarian disorders. This is not seen on the CT scan however. For the time being, I will check the patient's urinalysis and place the patient on laxative regimen. Should her symptoms persist, further workup is necessary. RECOMMENDATIONS: Per above discussion and per orders written in the chart. Thank you for asking me to participate in the care of this patient. Julian Macario M.D. DR: NITIN JOB#: [id number] CC: BIANKA
[2019-04-12 04:00] VITALS: BP 100/59
[2019-04-12 08:00] VITALS: BP 90/44
[2019-04-12 08:45] VITALS: BP 100/56
[2019-04-12] MEDS ORDERED: Furosemide 40mg tab ORAL SCH (09:00)
[2019-04-12] MEDS ORDERED: Carvedilol 25mg Tab ORAL SCH (09:00)
[2019-04-12] MEDS: HYDROcodone/Acetamin 10/325 tab ORAL PRN (10:28)
[2019-04-12] MEDS ORDERED: HYDROcodone/Acetamin 5/325 tab ORAL PRN (10:30)
--- NOTE | 2019-04-12 10:35 | GI Progress Note ---
Assessment/Plan Problems: (1) Diverticulitis ICD Codes: K57.92 - Diverticulitis SNOMED: 194368125 (2) Abdominal pain ICD Codes: R10.9 - Unspecified abdominal pain SNOMED: 68555338 Qualifiers: Qualified Codes: R10.32 - Left lower quadrant pain (3) Right arm pain ICD Codes: M79.601 - Pain in right arm SNOMED: 674406017 (4) Anemia ICD Codes: D64.9 - Anemia, unspecified SNOMED: 641975710 (5) Diverticulitis (6) Gastroenteritis ICD Codes: K52.9 - Noninfective gastroenteritis and colitis, unspecified SNOMED: 02501809 Status: stable Status Narrative Discussed with Dr. Armstrong Assessment/Plan Chronic constipation Abdominal pelvis CT reviewed, no acute findings History of colonoscopy in 2015, no significant findings EGD/colonoscopy scheduled for tomorrow. - CLD, NPO @ DC. - hold all blood thinners tonight pain mgmt prn transfusions ppi follow labs will follow with additional recommendations post procedure The patient was seen and examined at bedside and all new and available data was reviewed in the patients chart. I agree with the above findings, impression and plan. (Patient seen earlier today. Signature stamp does not reflect patient encounter time.). - Jacob Armstrong MD Subjective Subjective Has complaint of generalized abdominal pain with radiation to the back Objective Last 24 Hour Vital Signs Date Time Temp Pulse Resp B/P (MAP) Pulse Ox O2 Delivery O2 Flow Rate FiO2 04/12/19 09:00 61 100/56 04/12/19 09:00 61 100/56 04/12/19 09:00 Room Air 04/12/19 08:45 61 100/56 (71) 04/12/19 08:00 97.6 61 20 90/44 (59) 100 04/12/19 04:00 98.1 62 18 100/59 (73) 100 04/11/19 21:00 Room Air 04/11/19 20:00 97.3 60 18 98/48 (65) 100 04/11/19 16:00 97.7 60 18 97/66 (76) 98 04/11/19 12:00 97.2 62 18 105/59 (74) 100 Intake and Output 04/11/19 04/12/19 19:00 07:00 Intake Total 550 ml Balance 550 ml Intake Oral 550 ml # Voids 3 4 Laboratory Tests Test 04/11/19 13:32 Urine Color Pale yellow Urine Appearance Slightly cloudy Urine pH 6 (4.5-8.0) Urine Specific [place] 1.015 (1.005-1.035) Urine Protein Negative (NEGATIVE) Urine Glucose (UA) Negative (NEGATIVE) Urine Ketones Negative (NEGATIVE) Urine Blood 1+ (NEGATIVE) H Urine Nitrite Negative (NEGATIVE) Urine Bilirubin Negative (NEGATIVE) Urine Urobilinogen Normal MG/DL (0.0-1.0) Urine Leukocyte Esterase 2+ (NEGATIVE) H Urine RBC 0-2 /HPF (0 - 2) Urine WBC 5-10 /HPF (0 - 2) H Urine Squamous Epithelial Cells Moderate /LPF (NONE/OCC) H Urine Bacteria Few /HPF (NONE) Height (Feet): 5 Height (Inches): 1.00 Weight (Pounds): 140 General Appearance: WD/WN, no apparent distress, alert Cardiovascular: normal rate Respiratory/Chest: normal breath sounds, no respiratory distress Abdominal Exam: normal bowel sounds, non tender, soft Extremities: normal range of motion, non-tender Amaury Link NP Apr 12, 2019 10:35
--- NOTE | 2019-04-12 10:56 | Consultation ---
Consult Note Consult Note I am asked to eval for fluid and electrolyte management patient interviewed examined data reviewed his is a 58-year-old female admitted last evening complaining of abdominal pain in lower abdomen. The patient states that she had history of diverticulitis before. She had history of abdominal pain and is followed in outpatient by Dr. Macario. Has nausea, but no vomiting. No diarrhea. No blood in stool. . Assessment/Plan Electrolyte imbalance: Low K and Low Mag Anemia Chronic Pain Smoker / Coccain COPD Pace / Defibrilator diverticulitis Mag and K supplement given Anemia pond DC IV COlace and Protonix Urine c/s and tox screen 2 D echo per orders Joseph Stein MD Apr 12, 2019 10:56
[2019-04-12 12:00] VITALS: BP 116/57
[2019-04-12] MEDS: Docusate 100mg cap ORAL SCH ×2 (13:05→18:35)
[2019-04-12 16:00] VITALS: BP 116/76
[2019-04-12] MEDS ORDERED: Bisacodyl EC 5mg tab ORAL SCH (16:00)
[2019-04-12] MEDS ORDERED: Magnesium Citrate Liq Btl ORAL SCH (16:00)
[2019-04-12] MEDS ORDERED: Polyethylene Glycol 238gm bottle ORAL SCH (16:00)
--- NOTE | 2019-04-12 18:07 | General Progress Note ---
Assessment/Plan Assessment/Plan: (1) Abdominal pain (2) Diverticulitis Patient will be continued on Morphine and norco D/w Dr. Rico and he concurred. Subjective Date patient seen: Apr 12, 2019 Time patient seen: 18:05 Allergies: Coded Allergies: No Known Allergies (Verified , 08/12/17) Subjective Constitutional: Reports: weakness HEENT: Reports: no symptoms Cardiovascular: Reports: no symptoms Respiratory: Reports: no symptoms Gastrointestinal/Abdominal: Reports: abdominal pain Genitourinary: Reports: no symptoms Neurologic/Psychiatric: Reports: weakness Endocrine: Reports: no symptoms Hematologic/Lymphatic: Reports: no symptoms Subjective Patient is in bed and tolerating the pain on the [place] and Morphine. waiting for colonoscopy as per GI. Objective Last 24 Hour Vital Signs Date Time Temp Pulse Resp B/P (MAP) Pulse Ox O2 Delivery O2 Flow Rate FiO2 04/12/19 16:00 98.7 60 20 116/76 (89) 97 04/12/19 12:00 98.0 60 22 116/57 (76) 100 04/12/19 09:00 61 100/56 04/12/19 09:00 61 100/56 04/12/19 09:00 Room Air 04/12/19 08:45 61 100/56 (71) 04/12/19 08:00 97.6 61 20 90/44 (59) 100 04/12/19 04:00 98.1 62 18 100/59 (73) 100 04/11/19 21:00 Room Air 04/11/19 20:00 97.3 60 18 98/48 (65) 100 Intake and Output 04/11/19 04/12/19 19:00 07:00 Intake Total 550 ml Balance 550 ml Intake Oral 550 ml # Voids 3 4 Height (Feet): 5 Height (Inches): 1.00 Weight (Pounds): 140 Objective General Appearance: no apparent distress, alert EENT: PERRL/EOMI, normal ENT inspection Neck: non-tender, normal alignment Cardiovascular: normal rate, regular rhythm Respiratory/Chest: lungs clear, normal breath sounds Abdomen: tender Extremities: non-tender Edema: no edema noted Arm (L), no edema noted Arm (R), no edema noted Leg (L), no edema noted Leg (R), no edema noted Pedal (L), no edema noted Pedal (R), no edema noted Generalized Neurologic: alert, oriented x 3 Skin: warm/dry Dameon Silva Apr 12, 2019 18:07
[2019-04-12 20:00] VITALS: BP 86/43
[2019-04-12] MEDS: Atorvastatin 20mg tab ORAL SCH (20:21)
--- NOTE | 2019-04-12 20:41 | General Progress Note ---
Assessment/Plan Problem List: (1) Chronic pain syndrome ICD Codes: G89.4 - Chronic painsyndrome SNOMED: 882935962 (2) Abdominal pain ICD Codes: R10.9 - Unspecified abdominal pain SNOMED: 15873180 Qualifiers: Qualified Codes: R10.32 - Left lower quadrant pain (3) Anemia ICD Codes: D64.9 - Anemia, unspecified SNOMED: 616309677 (4) Gastroenteritis ICD Codes: K52.9 - Noninfective gastroenteritis and colitis, unspecified SNOMED: 91852386 (5) Diverticulitis Status: progressing Assessment/Plan: abdominal pain is improving chronic pain lyte abdnormality chf htn Subjective ROS Limited/Unobtainable: Yes Gastrointestinal/Abdominal: Reports: abdominal pain Allergies: Coded Allergies: No Known Allergies (Verified , 08/12/17) Objective Last 24 Hour Vital Signs Date Time Temp Pulse Resp B/P (MAP) Pulse Ox O2 Delivery O2 Flow Rate FiO2 04/12/19 16:00 98.7 60 20 116/76 (89) 97 04/12/19 12:00 98.0 60 22 116/57 (76) 100 04/12/19 09:00 61 100/56 04/12/19 09:00 61 100/56 04/12/19 09:00 Room Air 04/12/19 08:45 61 100/56 (71) 04/12/19 08:00 97.6 61 20 90/44 (59) 100 04/12/19 04:00 98.1 62 18 100/59 (73) 100 04/11/19 21:00 Room Air Intake and Output 04/11/19 04/12/19 19:00 07:00 Intake Total 625 ml Balance 625 ml Intake Oral 550 ml IV Total 75 ml # Voids 3 4 Height (Feet): 5 Height (Inches): 1.00 Weight (Pounds): 140 Neck: supple Cardiovascular: normal rate Respiratory/Chest: lungs clear Мария Montoya MD Apr 12, 2019 20:41
[2019-04-13] VITALS (8 sets, daily range): BP systolic 101–116; BP diastolic 51–72
--- NOTE | 2019-04-13 03:44 | Consultation ---
Consult Note Consult Note History of Present Illness This is a 58 year old female who presents to [facility] with left lower quadrant pain. She took a [place] which helped for short period of time and she took Tylenol last night. She has had this pain with diverticulitis in the past. She denies any fevers or chills. There is no nausea vomiting diarrhea hematemesis coffee grounds or blood in stool. She states she had a stroke several years ago. Also has a implanted defibrillator for cardiomyopathy. Last month it was not working properly and she had problems with tachycardia. There were no palpitations also.We were consulted for Thrombocytopenia. Allergies: Coded Allergies: No Known Allergies (Verified , 08/12/17) Patient History Past Medical History: see triage record Past Surgical History: pacemaker - IVCD Social History: Denies: smoking, alcohol use, drug use Social History Narrative from home Now: No Reviewed Nursing Documentation: PMH: Agreed; PSxH: Agreed Past Medical History: No History, Except For Hx Cardiac Problems: Yes - Defibilator on L chest, Cardiomyopathy, CHF Hx Hypertension: Yes Hx Pacemaker: Yes - 2005 Hx Asthma: Yes Hx COPD: Yes Hx Cancer: No Hx Gastrointestinal Problems: Yes - DIVERTICULITS Hx Neurological Problems: Yes Hx Cerebrovascular Accident: Yes - over 10 years ago Hx Seizures: Yes - 30 years ago Hx Weakness: Yes - right-sided weakness Review of Systems All Other Systems: negative except mentioned in HPI Physical Exam General Appearance: well appearing, no apparent distress. Head: normocephalic Eyes: bilateral eye normal inspection, bilateral eye PERRL, bilateral eye EOMI ENT: moist mucus membranes Neck: supple Respiratory: lungs clear, normal breath sounds Cardiovascular regular rate, rhythm Gastrointestinal: normal inspection, normal bowel sounds, no mass, non- distended, no rebound, guarding - Left lower quadrant, tenderness Musculoskeletal: back normal, gait/station normal, normal range of motion Neurologic: alert, oriented x3 Skin: normal inspection, warm/dry Assessment/Plan ASSESSMENT AND REC'S # Anemia of chronic disease due to underlying chronic medical issues, multifactorial --> Anemia workup has been reviewed Ferritin 148, Iron 113, TIBC 294, Iron sat 38%, rule out gi bleed --> No evidence of hemolysis is noted, peripheral smear has been reviewed. --> Hgb goal >7. Transfuse prn. --> Epogen or iron at this time is not particularly indicated --> Medications have been reviewed --> gi following stool occult is pending pt is scheduled for GI procedures. pathology report reviewed from 2012 antrum bx negative for malignancy. --> bone marrow biopsy is not indicated given the other more likely causes #.Thrombocytopenia - potential causes multifactorial, evaluate liver and viral etiologies to begin, also could be related to underlying medications patient has received. --> Hep panel and HIV ordered --> US abd to evaluate for cirrhosis and hsm ordered --> Peripheral smear ordered to evaluate for blasts /schistocytes --> abx and other meds have been reviewed --> ok for ppx if plt >50k w/ either heparin or lovenox --> Transfuse if Plt < 20k and fever, or if Plt < 10k without fever #. Abdominal Pain --> GI Following #. HTN --> SBP Goal < 140 The timing of this note does not necessarily reflect the time of the patient was seen. GREATLY APPRECIATE CONSULTATION. Thor Prakash MD Apr 13, 2019 03:44
[2019-04-13] MEDS: Morphine Sulfate 4mg/ml Inj (IV USE ONLY) IVP PRN ×3 (05:06→20:11)
[2019-04-13 06:46] LABS: INR 1.1 (0.9-1.1)
[2019-04-13 06:48] LABS: HEMATOCRIT 31.5 % (37.0-47.0); HEMOGLOBIN 10.3 G/DL (12.0-16.0); MEAN CORPUSCULAR VOLUME 94 FL (80-99); PLATELET COUNT 141 K/UL (150-450); RED BLOOD COUNT 3.35 M/UL (4.20-5.40); RED CELL DISTRIBUTION WIDTH 12.3 % (11.6-14.8)
--- NOTE | 2019-04-13 06:58 | Anethesia Preoperative Eval ---
Anesthesia Pre-op PMH/ROS General Date of Evaluation: Apr 13, 2019 Time of Evaluation: 06:52 Anesthesiologist: flaca ASA Score: ASA 4 Mallampati Score Class I : Soft palate, uvula, fauces, pillars visible Class II: Soft palate, uvula, fauces visible Class III: Soft palate, base of uvula visible Class IV: Only hard plate visible Mallampati Classification: Class II Surgeon: apurva Diagnosis: diverticulitis Surgical Procedure: egd/colonoscopy Anesthesia History: none Social History: alcohol use, drug use Family History: no anesthesia problems Allergies: Coded Allergies: No Known Allergies (Verified , 08/12/17) Medications: see eMAR Patient NPO?: Yes Past Medical History Cardiovascular: Reports: HTN, other - aicd/pacemaker,chf, hypotension, Pulmonary: Reports: asthma, COPD Gastrointestinal/Genitourinary: Reports: other - acute renal failure, pyelonephritis, gastroenteritis, diverticulitis, Neurologic/Psychiatric: Reports: other - generalized weakness, seizure dz, Hematology/Immune: Reports: other - hiv exposure, anticoagulation therapy Musculoskeletal/Integumentary: Reports: OA, other - plantar fasciitis Anesthesia Pre-op Phys. Exam Physician Exam Last Vital Signs Date Time Temp Pulse Resp B/P (MAP) Pulse Ox O2 Delivery O2 Flow Rate FiO2 04/13/19 04:00 97.5 64 16 110/63 (79) 100 04/12/19 09:00 Room Air Constitutional: NAD Neurologic: CN 2-12 intact Cardiovascular: RRR Respiratory: CTA Gastrointestinal: S/NT/ND Airway Exam Mallampati Score: Class II MO: limited Neck: flexible TMD: 2fb ROM: limited Anesthesia Pre-op A/P Labs Labs Test 04/10/19 16:55 04/11/19 04:45 04/11/19 13:32 04/12/19 20:30 White Blood Count 4.3 K/UL (4.8-10.8) 3.3 K/UL (4.8-10.8) Red Blood Count 4.07 M/UL (4.20-5.40) 3.38 M/UL (4.20-5.40) Hemoglobin 12.5 G/DL (12.0-16.0) 10.5 G/DL (12.0-16.0) Hematocrit 36.5 % (37.0-47.0) 31.8 % (37.0-47.0) Mean Corpuscular Volume 90 FL (80-99) 94 FL (80-99) Mean Corpuscular Hemoglobin 30.7 PG (27.0-31.0) 31.1 PG (27.0-31.0) Mean Corpuscular Hemoglobin Concent 34.2 G/DL (32.0-36.0) 33.1 G/DL (32.0-36.0) Red Cell Distribution Width 11.8 % (11.6-14.8) 12.7 % (11.6-14.8) Platelet Count 160 K/UL (150-450) 136 K/UL (150-450) Mean Platelet Volume 8.4 FL (6.5-10.1) 10.3 FL (6.5-10.1) Neutrophils (%) (Auto) 44.7 % (45.0-75.0) % (45.0-75.0) Lymphocytes (%) (Auto) 45.9 % (20.0-45.0) % (20.0-45.0) Monocytes (%) (Auto) 5.6 % (1.0-10.0) % (1.0-10.0) Eosinophils (%) (Auto) 1.9 % (0.0-3.0) % (0.0-3.0) Basophils (%) (Auto) 2.0 % (0.0-2.0) % (0.0-2.0) Prothrombin Time 11.1 SEC (9.30-11.50) Prothromb Time International Ratio 1.0 (0.9-1.1) Activated Partial Thromboplast Time 29 SEC (23-33) Sodium Level 142 MMOL/L (136-145) 143 MMOL/L (136-145) Potassium Level 3.5 MMOL/L (3.5-5.1) 3.2 MMOL/L (3.5-5.1) Chloride Level 105 MMOL/L (98-107) 107 MMOL/L (98-107) Carbon Dioxide Level 24 MMOL/L (21-32) 27 MMOL/L (21-32) Anion Gap 13 mmol/L (5-15) 9 mmol/L (5-15) Blood Urea Nitrogen 20 mg/dL (7-18) 15 mg/dL (7-18) Creatinine 1.3 MG/DL (0.55-1.30) 1.1 MG/DL (0.55-1.30) Estimat Glomerular Filtration Rate 51.4 mL/min (>60) > 60 mL/min (>60) Glucose Level 92 MG/DL (74-106) 91 MG/DL (74-106) Calcium Level 9.9 MG/DL (8.5-10.1) 9.3 MG/DL (8.5-10.1) Total Bilirubin 0.4 MG/DL (0.2-1.0) 0.6 MG/DL (0.2-1.0) Aspartate Amino Transf (AST/SGOT) 25 U/L (15-37) 22 U/L (15-37) Alanine Aminotransferase (ALT/SGPT) 35 U/L (12-78) 31 U/L (12-78) Alkaline Phosphatase 139 U/L (46-116) 105 U/L (46-116) Troponin I 0.015 ng/mL (0.000-0.056) Total Protein 8.4 G/DL (6.4-8.2) 6.9 G/DL (6.4-8.2) Albumin 4.4 G/DL (3.4-5.0) 3.5 G/DL (3.4-5.0) Globulin 4.0 g/dL 3.4 g/dL Albumin/Globulin Ratio 1.1 (1.0-2.7) 1.0 (1.0-2.7) Lipase 107 U/L (73-393) Differential Total Cells Counted 100 Neutrophils % (Manual) 49 % (45-75) Lymphocytes % (Manual) 43 % (20-45) Monocytes % (Manual) 6 % (1-10) Eosinophils % (Manual) 2 % (0-3) Basophils % (Manual) 0 % (0-2) Band Neutrophils 0 % (0-8) Platelet Estimate Decreased Platelet Morphology Normal Red Blood Cell Morphology Normal Hemoglobin A1c 5.2 % (4.3-6.0) Uric Acid 6.7 MG/DL (2.6-7.2) Phosphorus Level 3.7 MG/DL (2.5-4.9) Magnesium Level 1.5 MG/DL (1.8-2.4) Iron Level 113 ug/dL (50-175) Total Iron Binding Capacity 294 ug/dL (250-450) Percent Iron Saturation 38 % (15-50) Unsaturated Iron Binding 181 ug/dL (112-346) Ferritin 148 NG/ML (8-388) Gamma Glutamyl Transpeptidase 18 U/L (5-85) C-Reactive Protein, Quantitative < 0.4 mg/dL (0.00-0.90) Vitamin B12 Level 342 PG/ML (193-986) Folate 11.4 NG/ML (8.6-58.9) Urine Color Pale yellow Urine Appearance Slightly cloudy Urine pH 6 (4.5-8.0) Urine Specific Presto 1.015 (1.005-1.035) Urine Protein Negative (NEGATIVE) Urine Glucose (UA) Negative (NEGATIVE) Urine Ketones Negative (NEGATIVE) Urine Blood 1+ (NEGATIVE) Urine Nitrite Negative (NEGATIVE) Urine Bilirubin Negative (NEGATIVE) Urine Urobilinogen Normal MG/DL (0.0-1.0) Urine Leukocyte Esterase 2+ (NEGATIVE) Urine RBC 0-2 /HPF (0 - 2) Urine WBC 5-10 /HPF (0 - 2) Urine Squamous Epithelial Cells Moderate /LPF (NONE/OCC) Urine Bacteria Few /HPF (NONE) Stool Occult Blood Negative (NEGATIVE) Test 04/13/19 04:45 White Blood Count 3.0 K/UL (4.8-10.8) Red Blood Count 3.35 M/UL (4.20-5.40) Hemoglobin 10.3 G/DL (12.0-16.0) Hematocrit 31.5 % (37.0-47.0) Mean Corpuscular Volume 94 FL (80-99) Mean Corpuscular Hemoglobin 30.9 PG (27.0-31.0) Mean Corpuscular Hemoglobin Concent 32.8 G/DL (32.0-36.0) Red Cell Distribution Width 12.3 % (11.6-14.8) Platelet Count 141 K/UL (150-450) Mean Platelet Volume 8.9 FL (6.5-10.1) Neutrophils (%) (Auto) % (45.0-75.0) Lymphocytes (%) (Auto) % (20.0-45.0) Monocytes (%) (Auto) % (1.0-10.0) Eosinophils (%) (Auto) % (0.0-3.0) Basophils (%) (Auto) % (0.0-2.0) Differential Total Cells Counted 100 Neutrophils % (Manual) 57 % (45-75) Lymphocytes % (Manual) 32 % (20-45) Monocytes % (Manual) 7 % (1-10) Eosinophils % (Manual) 3 % (0-3) Basophils % (Manual) 1 % (0-2) Band Neutrophils 0 % (0-8) Platelet Estimate Decreased Platelet Morphology Normal Hypochromasia 1+ Prothrombin Time 11.4 SEC (9.30-11.50) Prothromb Time International Ratio 1.1 (0.9-1.1) Activated Partial Thromboplast Time 31 SEC (23-33) Sodium Level 146 MMOL/L (136-145) Potassium Level 4.2 MMOL/L (3.5-5.1) Chloride Level 112 MMOL/L (98-107) Carbon Dioxide Level 25 MMOL/L (21-32) Anion Gap 9 mmol/L (5-15) Blood Urea Nitrogen 7 mg/dL (7-18) Creatinine 0.7 MG/DL (0.55-1.30) Estimat Glomerular Filtration Rate > 60 mL/min (>60) Glucose Level 88 MG/DL (74-106) Uric Acid 5.3 MG/DL (2.6-7.2) Calcium Level 10.1 MG/DL (8.5-10.1) Phosphorus Level 3.4 MG/DL (2.5-4.9) Magnesium Level 2.3 MG/DL (1.8-2.4) Total Bilirubin 1.0 MG/DL (0.2-1.0) Aspartate Amino Transf (AST/SGOT) 175 U/L (15-37) Alanine Aminotransferase (ALT/SGPT) 242 U/L (12-78) Alkaline Phosphatase 138 U/L (46-116) Pro-B-Type Natriuretic Peptide 197 pg/mL (0-125) Total Protein 6.6 G/DL (6.4-8.2) Albumin 3.4 G/DL (3.4-5.0) Globulin 3.2 g/dL Albumin/Globulin Ratio 1.1 (1.0-2.7) Risk Assessment & Plan Assessment: [email or web address] Plan: mac Status Change Before Surgery: No Pre-Antibiotics Drug: Verena aBll MD Apr 13, 2019 06:58
[2019-04-13] MEDS ORDERED: fentaNYL 100 mcg/2 mL IV PRN (07:00)
[2019-04-13] MEDS ORDERED: Atropine Inj 1mg/10ml Syr IV PRN (07:00)
[2019-04-13] MEDS ORDERED: Midazolam 2mg/2ml Inj IVP PRN (07:00)
[2019-04-13] MEDS ORDERED: DiphenhydrAMINE 50mg/ml Inj IVP PRN (07:00)
[2019-04-13 07:16] LABS: ALANINE AMINOTRANSFERASE 242 U/L (12-78); ALBUMIN 3.4 G/DL (3.4-5.0); ALBUMIN/GLOBULIN RATIO 1.1 (1.0-2.7); ALKALINE PHOSPHATASE 138 U/L (46-116); ANION GAP 9 mmol/L (5-15); ASPARTATE AMINO TRANSFERASE 175 U/L (15-37); BLOOD UREA NITROGEN 7 mg/dL (7-18); CALCIUM 10.1 MG/DL (8.5-10.1); CARBON DIOXIDE 25 MMOL/L (21-32); CHLORIDE 112 MMOL/L (98-107); CREATININE 0.7 MG/DL (0.55-1.30); PHOSPHORUS 3.4 MG/DL (2.5-4.9); POTASSIUM 4.2 MMOL/L (3.5-5.1); SODIUM 146 MMOL/L (136-145)
[2019-04-13] MEDS: Furosemide 40mg tab ORAL SCH (09:00)
[2019-04-13] MEDS: Carvedilol 12.5mg tab ORAL SCH ×2 (09:00→17:59)
[2019-04-13] MEDS: Docusate 100mg cap ORAL SCH ×3 (09:00→17:59)
--- NOTE | 2019-04-13 10:24 | Diagnostic Imaging Report ---
Indication: Abdominal pain, left flank pain, abnormal liver function tests, left lower quadrant pain Technique: Qureshi-scale and duplex images of the upper abdomen were obtained Comparison: 05/14/2012. Reference also made to CT scan of 04/10/2019 Findings: Gallbladder is surgically absent. Common bile duct measures 5 mm in diameter. No intrahepatic biliary ductal dilatation. Liver demonstrates slightly coarsened echogenicity. No focal abnormality. No surface nodularity Portal vein and hepatic veins are patent. Pancreas is unremarkable. Spleen is unremarkable. Left kidney measures 11 cm in length. Right kidney measures 9.4 cm length. Both kidneys demonstrate normal echogenicity. There is mild right renal collecting system fullness. This is also demonstrated on [id number] sonogram but is less apparent on recent CT scan. A cyst is seen in the left kidney. The bladder is unremarkable. Abdominal aorta is partially obscured by bowel gas, visualized portions are non-aneurysmal . Impression: Surgically absent gallbladder. Negative for biliary ductal dilatation Slightly coarsened hepatic echogenicity, could indicate hepatocellular disease. Correlate with clinical and laboratory findings Mild right renal collecting system fullness, of doubtful significance given similar findings on prior 2012 sonogram and absence of corresponding findings on recent CT Note inability to visualize portions of the abdominal aorta Incidental finding small left renal cyst
--- NOTE | 2019-04-13 11:08 | Infectious Diseases Prog Note ---
Assessment/Plan Assessment/Plan antibiotics : none A 1. history of diverticulitis 2. irritable bowel syndrome 3. COPD. 4. CVA P 1. continue off antibiotics Subjective Constitutional: Denies: fever, chills Respiratory: Denies: shortness of breath, dry cough Gastrointestinal/Abdominal: Reports: nausea; Denies: vomiting, diarrhea Musculoskeletal: Reports: pain - decreased abdominal Allergies: Coded Allergies: No Known Allergies (Verified , 08/12/17) Objective Vital Signs Last 24 Hour Vital Signs Date Time Temp Pulse Resp B/P (MAP) Pulse Ox O2 Delivery O2 Flow Rate FiO2 04/13/19 04:00 97.5 64 16 110/63 (79) 100 04/13/19 00:00 98.1 65 16 116/55 (75) 98 04/12/19 20:00 97.8 62 20 86/43 (57) 96 04/12/19 16:00 98.7 60 20 116/76 (89) 97 04/12/19 12:00 98.0 60 22 116/57 (76) 100 Height (Feet): 5 Height (Inches): 5.00 Weight (Pounds): 140 Respiratory/Chest: lungs clear Cardiovascular: normal rate, regular rhythm, no gallop/murmur Abdomen: tender - LLQ Extremities: no edema Laboratory Tests Test 04/12/19 20:30 04/13/19 04:45 Stool Occult Blood Pending White Blood Count 3.0 K/UL (4.8-10.8) L Red Blood Count 3.35 M/UL (4.20-5.40) L Hemoglobin 10.3 G/DL (12.0-16.0) L Hematocrit 31.5 % (37.0-47.0) L Mean Corpuscular Volume 94 FL (80-99) Mean Corpuscular Hemoglobin 30.9 PG (27.0-31.0) Mean Corpuscular Hemoglobin Concent 32.8 G/DL (32.0-36.0) Red Cell Distribution Width 12.3 % (11.6-14.8) Platelet Count 141 K/UL (150-450) L Mean Platelet Volume 8.9 FL (6.5-10.1) Neutrophils (%) (Auto) % (45.0-75.0) Lymphocytes (%) (Auto) % (20.0-45.0) Monocytes (%) (Auto) % (1.0-10.0) Eosinophils (%) (Auto) % (0.0-3.0) Basophils (%) (Auto) % (0.0-2.0) Differential Total Cells Counted 100 Neutrophils % (Manual) 57 % (45-75) Lymphocytes % (Manual) 32 % (20-45) Monocytes % (Manual) 7 % (1-10) Eosinophils % (Manual) 3 % (0-3) Basophils % (Manual) 1 % (0-2) Band Neutrophils 0 % (0-8) Platelet Estimate Decreased L Platelet Morphology Normal Hypochromasia 1+ Prothrombin Time 11.4 SEC (9.30-11.50) Prothromb Time International Ratio 1.1 (0.9-1.1) Activated Partial Thromboplast Time 31 SEC (23-33) Sodium Level 146 MMOL/L (136-145) H Potassium Level 4.2 MMOL/L (3.5-5.1) Chloride Level 112 MMOL/L (98-107) H Carbon Dioxide Level 25 MMOL/L (21-32) Anion Gap 9 mmol/L (5-15) Blood Urea Nitrogen 7 mg/dL (7-18) Creatinine 0.7 MG/DL (0.55-1.30) Estimat Glomerular Filtration Rate > 60 mL/min (>60) Glucose Level 88 MG/DL (74-106) Uric Acid 5.3 MG/DL (2.6-7.2) Calcium Level 10.1 MG/DL (8.5-10.1) Phosphorus Level 3.4 MG/DL (2.5-4.9) Magnesium Level 2.3 MG/DL (1.8-2.4) Total Bilirubin 1.0 MG/DL (0.2-1.0) Aspartate Amino Transf (AST/SGOT) 175 U/L (15-37) H Alanine Aminotransferase (ALT/SGPT) 242 U/L (12-78) H Alkaline Phosphatase 138 U/L (46-116) H Pro-B-Type Natriuretic Peptide 197 pg/mL (0-125) H Total Protein 6.6 G/DL (6.4-8.2) Albumin 3.4 G/DL (3.4-5.0) Globulin 3.2 g/dL Albumin/Globulin Ratio 1.1 (1.0-2.7) Hepatitis A IgM Antibody Pending Hepatitis B Surface Antigen Pending Hepatitis B Core IgM Antibody Pending Hepatitis C Antibody Pending Current Medications Medications (Trade) Dose Ordered Sig/Apollo Route PRN Reason Start Time Stop Time Status Last Admin Dose Admin Acetaminophen/ Hydrocodone Bitart ([place] 10/325) 1 tab Q12HR PRN ORAL pain 4-6 04/12/19 10:30 04/17/19 23:14 04/12/19 10:28 Acetaminophen/ Hydrocodone Bitart ([place] 5/325) 1 tab Q6H PRN ORAL pain 1-3 04/12/19 10:30 04/17/19 23:14 Al Hydroxide/Mg Hydroxide (Mylanta) 15 ml Q1H PRN ORAL gi upset 04/13/19 07:00 04/13/19 15:00 Amlodipine Besylate (Norvasc) 2.5 mg DAILY ORAL 04/12/19 09:00 05/11/19 08:59 Atorvastatin Calcium (Lipitor) 20 mg BEDTIME ORAL 04/10/19 23:15 05/10/19 23:14 04/12/19 20:21 Atropine Sulfate (Atropine) 0.5 mg Q5M PRN IV HR less than 45BPM 04/13/19 07:00 04/13/19 15:00 Carvedilol (Coreg) 12.5 mg BID ORAL 04/13/19 09:00 05/11/19 08:59 Clopidogrel Bisulfate (Plavix) 75 mg DAILY ORAL 04/11/19 09:00 05/11/19 08:59 04/12/19 09:14 Diphenhydramine HCl (Benadryl) 25 mg Q15M PRN IVP Itching 04/13/19 07:00 04/13/19 15:00 Docusate Sodium (Colace) 100 mg THREE TIMES A DAY ORAL 04/12/19 13:00 05/12/19 12:59 04/12/19 18:35 Fentanyl Citrate (Sublimaze 100 mcg/2 mL) 25 mcg Q10M PRN IV Moderate Pain (Pain Scale 4-6) 04/13/19 07:00 04/13/19 15:00 Furosemide (Lasix) 40 mg DAILY ORAL 04/13/19 09:00 05/11/19 08:59 Hydralazine HCl (Apresoline) 5 mg Q30M PRN IV SBP>160 /DBP>90 04/13/19 07:00 04/13/19 15:00 Midazolam HCl (Versed 2mg/2ml vial) 1 mg Q15M PRN IVP For Anxiety 04/13/19 07:00 04/13/19 15:00 Morphine Sulfate (Morphine Sulfate) 4 mg Q4H PRN IVP pain 7-10 04/12/19 10:30 04/18/19 00:14 04/13/19 05:06 Ondansetron HCl (Zofran) 4 mg Q1H PRN IVP Nausea & Vomiting 04/13/19 07:00 04/13/19 15:00 Ondansetron HCl (Zofran) 4 mg Q6H PRN IVP Nausea & Vomiting 04/10/19 23:15 05/10/19 23:14 04/11/19 14:20 Pantoprazole (Protonix) 40 mg EVERY 12 HOURS ORAL 04/12/19 21:00 05/12/19 20:59 04/12/19 20:21 Polyethylene Glycol (Miralax) 17 gm PRN PRN ORAL constipation 04/11/19 00:00 04/23/19 23:59 Potassium Chloride (K-Dur) 20 meq BID ORAL 04/11/19 09:00 05/11/19 08:59 04/12/19 18:35 Penny Martell MD Apr 13, 2019 11:08
[2019-04-13] MEDS ORDERED: NS 500ML IVPB ONE (11:25)
--- NOTE | 2019-04-13 11:27 | Pre-Procedure Note/Attestation ---
Pre-Procedure Note/Attestation Complete Prior to Procedure Planned Procedure: not applicable Procedure Narrative: esophagogastroduodenoscopy and colonoscopy Indications for Procedure Pre-Operative Diagnosis: anemia, abd pain Attestation I attest that I discussed the nature of the procedure; its benefits; risks and complications; and alternatives (and the risks and benefits of such alternatives ), prior to the procedure, with the patient (or the patient's legal primary care sales representative). I attest that, if there was a reasonable possibility of needing a blood transfusion, the patient (or the patient's legal primary care sales representative) was given the [facility] standardized written summary, pursuant to the Roly Cassia Blood Safety Act ([place] Health and Safety Code # 1645, as amended). I attest that I re-evaluated the patient just prior to the surgery and that there has been no change in the patient's H&P, except as documented below: Jacob Armstrong MD Apr 13, 2019 11:27
[2019-04-13] MEDS ORDERED: Lidocaine 1% MPF 10mg/ml 5ml ONE (11:30)
[2019-04-13] MEDS ORDERED: Propofol 200mg/20ml IV ONE (11:30)
--- NOTE | 2019-04-13 12:27 | Immediate Post-Op Evaluation ---
Immediate Post-Op Evalulation Immediate Post-Op Evalulation Procedure: egd/colonoscopy w/bx Date of Evaluation: Apr 13, 2019 Time of Evaluation: 12:16 IV Fluids: 250ml 0.9ns Blood Products: none Estimated Blood Loss: negligible Blood Pressure Systolic: 115 Blood Pressure Diastolic: 72 Pulse Rate: 81 Respiratory Rate: 18 O2 Sat by Pulse Oximetry: 100 Temperature (Fahrenheit): 97.4 Pain Score (1-10): 0 Nausea: No Vomiting: No Complications none Patient Status: awake, reacts, patent Hydration Status: adequate Drug: Verena Ball MD Apr 13, 2019 12:27
--- NOTE | 2019-04-13 12:28 | 48 Hour Post Anesthesia Eval ---
Post Anesthesia Evaluation Procedure: egd/colonoscopy w/bx Date of Evaluation: Apr 13, 2019 Time of Evaluation: 12:18 Blood Pressure Systolic: 110 0: 55 Pulse Rate: 61 Respiratory Rate: 18 Temperature (Fahrenheit): 97.4 O2 Sat by Pulse Oximetry: 100 Airway: patent Nausea: No Vomiting: No Pain Intensity: 0 Hydration Status: adequate Cardiopulmonary Status: stable Mental Status/LOC: patient returned to baseline Post-Anesthesia Complications: none Follow-up care needed: N/A Verena Gutierrez MD Apr 13, 2019 12:28
--- NOTE | 2019-04-13 14:40 | Nephrology Progress Note ---
Assessment/Plan Problem List: (1) Electrolyte imbalance (2) Anemia (3) Chronic pain syndrome (4) Diverticulitis (5) Pacemaker (6) LFT elevation Assessment Electrolyte imbalance: Low K and Low Mag Anemia Chronic Pain Smoker / Coccain COPD Pace / Defibrilator diverticulitis Plan DC lipitor for rising LFTs Mag and K supplement given Anemia pond DC IV Colace and Protonix Urine c/s and tox screen 2 D echo per orders Objective Objective Last 24 Hour Vital Signs Date Time Temp Pulse Resp B/P (MAP) Pulse Ox O2 Delivery O2 Flow Rate FiO2 04/13/19 12:29 98.0 60 14 110/51 100 Nasal Cannula 3 04/13/19 12:28 61 18 100 04/13/19 12:27 81 18 100 04/13/19 12:15 61 14 110/55 100 Nasal Cannula 3 04/13/19 12:09 67 14 106/62 100 Nasal Cannula 3 04/13/19 12:04 97.4 81 18 115/72 100 Nasal Cannula 3 04/13/19 04:00 97.5 64 16 110/63 (79) 100 04/13/19 00:00 98.1 65 16 116/55 (75) 98 04/12/19 20:00 97.8 62 20 86/43 (57) 96 04/12/19 16:00 98.7 60 20 116/76 (89) 97 Intake and Output 04/12/19 04/13/19 19:00 07:00 Intake Total 2225 ml 400 ml Balance 2225 ml 400 ml Intake Oral 2000 ml 400 ml IV Total 225 ml # Voids 3 3 # Bowel Movements 8 Laboratory Tests 04/12/19 20:30: Stool Occult Blood Negative 04/13/19 04:45: White Blood Count 3.0L, Red Blood Count 3.35L, Hemoglobin 10.3L, Hematocrit 31.5L, Mean Corpuscular Volume 94, Mean Corpuscular Hemoglobin 30.9, Mean Corpuscular Hemoglobin Concent 32.8, Red Cell Distribution Width 12.3, Platelet Count 141L, Mean Platelet Volume 8.9, Neutrophils (%) (Auto) , Lymphocytes (%) ( Auto) , Monocytes (%) (Auto) , Eosinophils (%) (Auto) , Basophils (%) (Auto) , Differential Total Cells Counted 100, Neutrophils % (Manual) 57, Lymphocytes % ( Manual) 32, Monocytes % (Manual) 7, Eosinophils % (Manual) 3, Basophils % ( Manual) 1, Band Neutrophils 0, Platelet Estimate DecreasedL, Platelet Morphology Normal, Hypochromasia 1+, Prothrombin Time 11.4, Prothromb Time International Ratio 1.1, Activated Partial Thromboplast Time 31, Sodium Level 146H, Potassium Level 4.2, Chloride Level 112H, Carbon Dioxide Level 25, Anion Gap 9, Blood Urea Nitrogen 7, Creatinine 0.7, Estimat Glomerular Filtration Rate > 60, Glucose Level 88, Uric Acid 5.3, Calcium Level 10.1, Phosphorus Level 3.4, Magnesium Level 2.3, Total Bilirubin 1.0, Aspartate Amino Transf (AST /SGOT) 175H, Alanine Aminotransferase (ALT/SGPT) 242H, Alkaline Phosphatase 138H , Pro-B-Type Natriuretic Peptide 197H, Total Protein 6.6, Albumin 3.4, Globulin 3.2, Albumin/Globulin Ratio 1.1, Hepatitis A IgM Antibody [Pending], Hepatitis B Surface Antigen [Pending], Hepatitis B Core IgM Antibody [Pending], Hepatitis C Antibody [Pending] Height (Feet): 5 Height (Inches): 5.00 Weight (Pounds): 140 Joseph Stein MD Apr 13, 2019 14:40
--- NOTE | 2019-04-13 16:15 | Procedure Note ---
DATE OF PROCEDURE: 04/13/2019 SURGEON: Jacob Armstrong M.D. PROCEDURE: Upper endoscopy with biopsy and colonoscopy with biopsy. ANESTHESIA: Per Dr. March. INSTRUMENT: Olympus adult flexible upper endoscope and colonoscope. INDICATIONS: Anemia, abdominal pain. REASON FOR PROCEDURE: The procedure, risks, benefits, and possible consequences, including hemorrhage, aspiration, perforation and infection, and alternative treatments, were explained to the patient/legal guardian by Dr. Jacob Armstrong and the patient/legal guardian understood and accepted these risks. PROCEDURE IN DETAIL: After informed consent was obtained, the patient was adequately sedated, Olympus upper endoscope was advanced from mouth into the second portion of the duodenum and retroflexion was performed in the stomach. The patient has had diffuse gastritis. Random biopsy from antrum was obtained to rule out H. pylori infection. The patient has evidence of 3 cm hiatal hernia without any obvious esophagitis. At this time, the upper endoscope was retrieved and the patient was turned over for colonoscopy. First, rectal exam was performed, which was normal. Then, the scope was advanced from the rectum into the cecum documented by appendiceal orifice, ileocecal valve, and right upper quadrant palpation. Quality of prep overall was good except for the cecum examination, which was limited. The patient had some melanosis coli. One diminutive polyp was removed from transverse colon with the cold biopsy forceps technique. Retroflexion of rectum showed evidence of internal hemorrhoids. SUMMARY OF FINDINGS: 1. Gastritis. 2. Hiatal hernia. 3. One colonic polyp removed, see above for details. 4. Diverticulosis. 5. Internal hemorrhoids. RECOMMENDATIONS: 1. Follow up pathology and treat accordingly. 2. We recommend repeat colonoscopy in 5 years. I want to thank, Dr. Мария Montoya, for this kind referral. Jacob Armstrong M.D. DR: INNA JOB#: [id number] CC: Мария Montoya M.D.; Fax#: [phone]
--- NOTE | 2019-04-13 17:32 | General Progress Note ---
Assessment/Plan Assessment/Plan: (1) Abdominal pain (2) Diverticulitis Patient will be continued on Morphine and norco D/w Dr. Rico and he concurred. Subjective Date patient seen: Apr 13, 2019 Time patient seen: 05:20 - pm Allergies: Coded Allergies: No Known Allergies (Verified , 08/12/17) Subjective Constitutional: Reports: weakness HEENT: Reports: no symptoms Cardiovascular: Reports: no symptoms Respiratory: Reports: no symptoms Gastrointestinal/Abdominal: Reports: abdominal pain Genitourinary: Reports: no symptoms Neurologic/Psychiatric: Reports: weakness Endocrine: Reports: no symptoms Hematologic/Lymphatic: Reports: no symptoms Subjective Patient in bed no signs of pain. She reports pain is reduced and tolerated. Objective Last 24 Hour Vital Signs Date Time Temp Pulse Resp B/P (MAP) Pulse Ox O2 Delivery O2 Flow Rate FiO2 04/13/19 16:00 97.4 60 17 116/58 (77) 04/13/19 12:29 98.0 60 14 110/51 100 Nasal Cannula 3 04/13/19 12:28 61 18 100 04/13/19 12:27 81 18 100 04/13/19 12:15 61 14 110/55 100 Nasal Cannula 3 04/13/19 12:09 67 14 106/62 100 Nasal Cannula 3 04/13/19 12:04 97.4 81 18 115/72 100 Nasal Cannula 3 04/13/19 09:00 Room Air 04/13/19 04:00 97.5 64 16 110/63 (79) 100 04/13/19 00:00 98.1 65 16 116/55 (75) 98 04/12/19 20:00 97.8 62 20 86/43 (57) 96 Intake and Output 04/12/19 04/13/19 19:00 07:00 Intake Total 2225 ml 400 ml Balance 2225 ml 400 ml Intake Oral 2000 ml 400 ml IV Total 225 ml # Voids 3 3 # Bowel Movements 8 Laboratory Tests 04/12/19 20:30: Stool Occult Blood Negative 04/13/19 04:45: White Blood Count 3.0L, Red Blood Count 3.35L, Hemoglobin 10.3L, Hematocrit 31.5L, Mean Corpuscular Volume 94, Mean Corpuscular Hemoglobin 30.9, Mean Corpuscular Hemoglobin Concent 32.8, Red Cell Distribution Width 12.3, Platelet Count 141L, Mean Platelet Volume 8.9, Neutrophils (%) (Auto) , Lymphocytes (%) ( Auto) , Monocytes (%) (Auto) , Eosinophils (%) (Auto) , Basophils (%) (Auto) , Differential Total Cells Counted 100, Neutrophils % (Manual) 57, Lymphocytes % ( Manual) 32, Monocytes % (Manual) 7, Eosinophils % (Manual) 3, Basophils % ( Manual) 1, Band Neutrophils 0, Platelet Estimate DecreasedL, Platelet Morphology Normal, Hypochromasia 1+, Prothrombin Time 11.4, Prothromb Time International Ratio 1.1, Activated Partial Thromboplast Time 31, Sodium Level 146H, Potassium Level 4.2, Chloride Level 112H, Carbon Dioxide Level 25, Anion Gap 9, Blood Urea Nitrogen 7, Creatinine 0.7, Estimat Glomerular Filtration Rate > 60, Glucose Level 88, Uric Acid 5.3, Calcium Level 10.1, Phosphorus Level 3.4, Magnesium Level 2.3, Total Bilirubin 1.0, Aspartate Amino Transf (AST /SGOT) 175H, Alanine Aminotransferase (ALT/SGPT) 242H, Alkaline Phosphatase 138H , Pro-B-Type Natriuretic Peptide 197H, Total Protein 6.6, Albumin 3.4, Globulin 3.2, Albumin/Globulin Ratio 1.1, Hepatitis A IgM Antibody [Pending], Hepatitis B Surface Antigen [Pending], Hepatitis B Core IgM Antibody [Pending], Hepatitis C Antibody [Pending] Height (Feet): 5 Height (Inches): 5.00 Weight (Pounds): 140 Objective General Appearance: no apparent distress, alert EENT: PERRL/EOMI, normal ENT inspection Neck: non-tender, normal alignment Cardiovascular: normal rate, regular rhythm Respiratory/Chest: lungs clear, normal breath sounds Abdomen: tender Extremities: non-tender Edema: no edema noted Arm (L), no edema noted Arm (R), no edema noted Leg (L), no edema noted Leg (R), no edema noted Pedal (L), no edema noted Pedal (R), no edema noted Generalized Neurologic: alert, oriented x 3 Skin: warm/dry Dameon Silva Apr 13, 2019 17:32
[2019-04-13] MEDS: HYDROcodone/Acetamin 10/325 tab ORAL PRN (18:00)
--- NOTE | 2019-04-13 21:26 | General Progress Note ---
Assessment/Plan Problem List: (1) Chronic pain syndrome ICD Codes: G89.4 - Chronic painsyndrome SNOMED: 875081529 (2) Abdominal pain ICD Codes: R10.9 - Unspecified abdominal pain SNOMED: 57141679 Qualifiers: Qualified Codes: R10.32 - Left lower quadrant pain (3) Anemia ICD Codes: D64.9 - Anemia, unspecified SNOMED: 554283263 (4) Gastroenteritis ICD Codes: K52.9 - Noninfective gastroenteritis and colitis, unspecified SNOMED: 58507686 (5) Diverticulitis Status: progressing Assessment/Plan: abdominal pain is improving chronic pain improving dc in am chf htn Subjective HEENT: Reports: no symptoms Cardiovascular: Reports: no symptoms Respiratory: Reports: no symptoms Gastrointestinal/Abdominal: Reports: abdominal pain Allergies: Coded Allergies: No Known Allergies (Verified , 08/12/17) Objective Last 24 Hour Vital Signs Date Time Temp Pulse Resp B/P (MAP) Pulse Ox O2 Delivery O2 Flow Rate FiO2 04/13/19 20:41 97.8 04/13/19 20:00 97.8 61 17 101/58 (72) 99 04/13/19 17:59 77 114/67 04/13/19 16:00 97.4 60 17 116/58 (77) 04/13/19 12:29 98.0 60 14 110/51 100 Nasal Cannula 3 04/13/19 12:28 61 18 100 04/13/19 12:27 81 18 100 04/13/19 12:15 61 14 110/55 100 Nasal Cannula 3 04/13/19 12:09 67 14 106/62 100 Nasal Cannula 3 04/13/19 12:04 97.4 81 18 115/72 100 Nasal Cannula 3 04/13/19 09:00 Room Air 04/13/19 04:00 97.5 64 16 110/63 (79) 100 04/13/19 00:00 98.1 65 16 116/55 (75) 98 Intake and Output 04/12/19 04/13/19 19:00 07:00 Intake Total 2225 ml 400 ml Balance 2225 ml 400 ml Intake Oral 2000 ml 400 ml IV Total 225 ml # Voids 3 3 # Bowel Movements 8 Laboratory Tests 04/13/19 04:45: White Blood Count 3.0L, Red Blood Count 3.35L, Hemoglobin 10.3L, Hematocrit 31.5L, Mean Corpuscular Volume 94, Mean Corpuscular Hemoglobin 30.9, Mean Corpuscular Hemoglobin Concent 32.8, Red Cell Distribution Width 12.3, Platelet Count 141L, Mean Platelet Volume 8.9, Neutrophils (%) (Auto) , Lymphocytes (%) ( Auto) , Monocytes (%) (Auto) , Eosinophils (%) (Auto) , Basophils (%) (Auto) , Differential Total Cells Counted 100, Neutrophils % (Manual) 57, Lymphocytes % ( Manual) 32, Monocytes % (Manual) 7, Eosinophils % (Manual) 3, Basophils % ( Manual) 1, Band Neutrophils 0, Platelet Estimate DecreasedL, Platelet Morphology Normal, Hypochromasia 1+, Prothrombin Time 11.4, Prothromb Time International Ratio 1.1, Activated Partial Thromboplast Time 31, Sodium Level 146H, Potassium Level 4.2, Chloride Level 112H, Carbon Dioxide Level 25, Anion Gap 9, Blood Urea Nitrogen 7, Creatinine 0.7, Estimat Glomerular Filtration Rate > 60, Glucose Level 88, Uric Acid 5.3, Calcium Level 10.1, Phosphorus Level 3.4, Magnesium Level 2.3, Total Bilirubin 1.0, Aspartate Amino Transf (AST /SGOT) 175H, Alanine Aminotransferase (ALT/SGPT) 242H, Alkaline Phosphatase 138H , Pro-B-Type Natriuretic Peptide 197H, Total Protein 6.6, Albumin 3.4, Globulin 3.2, Albumin/Globulin Ratio 1.1, Hepatitis A IgM Antibody [Pending], Hepatitis B Surface Antigen [Pending], Hepatitis B Core IgM Antibody [Pending], Hepatitis C Antibody [Pending] Height (Feet): 5 Height (Inches): 5.00 Weight (Pounds): 140 Neck: supple Respiratory/Chest: lungs clear Abdomen: soft Мария Montoya MD Apr 13, 2019 21:26
[2019-04-14] VITALS: BP 104/60
[2019-04-14 04:00] VITALS: BP 115/66
[2019-04-14 08:00] VITALS: BP 141/86
--- NOTE | 2019-04-14 08:42 | General Progress Note ---
Assessment/Plan Status: progressing Assessment/Plan: (1) Abdominal pain (2) Diverticulitis Patient will be continued on Morphine and norco D/w Dr. Rico and he concurred. Subjective Date patient seen: Apr 14, 2019 Time patient seen: 07:45 - am Allergies: Coded Allergies: No Known Allergies (Verified , 08/12/17) Subjective Constitutional: Reports: weakness HEENT: Reports: no symptoms Cardiovascular: Reports: no symptoms Respiratory: Reports: no symptoms Gastrointestinal/Abdominal: Reports: abdominal pain Genitourinary: Reports: no symptoms Neurologic/Psychiatric: Reports: weakness Endocrine: Reports: no symptoms Hematologic/Lymphatic: Reports: no symptoms Subjective Patient reports that she is doing well and has mild pain at this time. She has no new complaints at this time. Objective Last 24 Hour Vital Signs Date Time Temp Pulse Resp B/P (MAP) Pulse Ox O2 Delivery O2 Flow Rate FiO2 04/14/19 04:00 97.6 04/14/19 04:00 97.8 61 18 115/66 (82) 98 04/14/19 00:00 97.6 58 18 104/60 (75) 99 04/13/19 21:00 Room Air Room Air 04/13/19 20:41 97.8 04/13/19 20:00 97.8 61 17 101/58 (72) 99 04/13/19 17:59 77 114/67 04/13/19 16:00 97.4 60 17 116/58 (77) 04/13/19 12:29 98.0 60 14 110/51 100 Nasal Cannula 3 04/13/19 12:28 61 18 100 04/13/19 12:27 81 18 100 04/13/19 12:15 61 14 110/55 100 Nasal Cannula 3 04/13/19 12:09 67 14 106/62 100 Nasal Cannula 3 04/13/19 12:04 97.4 81 18 115/72 100 Nasal Cannula 3 04/13/19 09:00 Room Air Intake and Output 04/13/19 04/14/19 18:59 06:59 Intake Total 800 ml 360 ml Balance 800 ml 360 ml Intake Oral 500 ml 360 ml IV Total 300 ml # Voids 2 3 Height (Feet): 5 Height (Inches): 5.00 Weight (Pounds): 140 Objective General Appearance: no apparent distress, alert EENT: PERRL/EOMI, normal ENT inspection Neck: non-tender, normal alignment Cardiovascular: normal rate, regular rhythm Respiratory/Chest: lungs clear, normal breath sounds Abdomen: tender Extremities: non-tender Edema: no edema noted Arm (L), no edema noted Arm (R), no edema noted Leg (L), no edema noted Leg (R), no edema noted Pedal (L), no edema noted Pedal (R), no edema noted Generalized Neurologic: alert, oriented x 3 Skin: warm/dry Dameon Silva Apr 14, 2019 08:42
[2019-04-14] MEDS: Docusate 100mg cap ORAL SCH ×2 (09:00→13:00)
[2019-04-14] MEDS: Furosemide 40mg tab ORAL SCH (09:38)
[2019-04-14] MEDS: Carvedilol 12.5mg tab ORAL SCH (09:43)
[2019-04-14] MEDS: Morphine Sulfate 4mg/ml Inj (IV USE ONLY) IVP PRN (09:45)
--- NOTE | 2019-04-14 09:47 | GI Progress Note ---
Assessment/Plan Problems: (1) Diverticulitis ICD Codes: K57.92 - Diverticulitis SNOMED: 716016991 (2) Abdominal pain ICD Codes: R10.9 - Unspecified abdominal pain SNOMED: 64778631 Qualifiers: Qualified Codes: R10.32 - Left lower quadrant pain (3) Right arm pain ICD Codes: M79.601 - Pain in right arm SNOMED: 424579763 (4) Anemia ICD Codes: D64.9 - Anemia, unspecified SNOMED: 773687643 (5) Diverticulitis (6) Gastroenteritis ICD Codes: K52.9 - Noninfective gastroenteritis and colitis, unspecified SNOMED: 54399656 Status: stable Status Narrative Discussed with Dr. Armstrong Assessment/Plan Chronic constipation Abdominal pelvis CT reviewed, no acute findings History of colonoscopy in 2015, no significant findings s/p EGD colonoscopy SUMMARY OF FINDINGS: 1. Gastritis. 2. Hiatal hernia. 3. One colonic polyp removed, see above for details. 4. Diverticulosis. 5. Internal hemorrhoids. RECOMMENDATIONS: 1. Follow up pathology and treat accordingly. 2. We recommend repeat colonoscopy in 5 years. okay for DC per GI standpoint The patient was seen and examined at bedside and all new and available data was reviewed in the patients chart. I agree with the above findings, impression and plan. (Patient seen earlier today. Signature stamp does not reflect patient encounter time.). - Jacob Armstrong MD Subjective Gastrointestinal/Abdominal: Reports: no symptoms Objective Last 24 Hour Vital Signs Date Time Temp Pulse Resp B/P (MAP) Pulse Ox O2 Delivery O2 Flow Rate FiO2 04/14/19 09:43 62 114/62 04/14/19 04:00 97.6 04/14/19 04:00 97.8 61 18 115/66 (82) 98 04/14/19 00:00 97.6 58 18 104/60 (75) 99 04/13/19 21:00 Room Air Room Air 04/13/19 20:41 97.8 04/13/19 20:00 97.8 61 17 101/58 (72) 99 04/13/19 17:59 77 114/67 04/13/19 16:00 97.4 60 17 116/58 (77) 04/13/19 12:29 98.0 60 14 110/51 100 Nasal Cannula 3 04/13/19 12:28 61 18 100 04/13/19 12:27 81 18 100 04/13/19 12:15 61 14 110/55 100 Nasal Cannula 3 04/13/19 12:09 67 14 106/62 100 Nasal Cannula 3 04/13/19 12:04 97.4 81 18 115/72 100 Nasal Cannula 3 Intake and Output 04/13/19 04/14/19 18:59 06:59 Intake Total 800 ml 360 ml Balance 800 ml 360 ml Intake Oral 500 ml 360 ml IV Total 300 ml # Voids 2 3 Laboratory Tests Test 04/14/19 09:17 White Blood Count Pending Red Blood Count Pending Hemoglobin Pending Hematocrit Pending Mean Corpuscular Volume Pending Mean Corpuscular Hemoglobin Pending Mean Corpuscular Hemoglobin Concent Pending Red Cell Distribution Width Pending Platelet Count Pending Mean Platelet Volume Pending Neutrophils (%) (Auto) Pending Lymphocytes (%) (Auto) Pending Monocytes (%) (Auto) Pending Eosinophils (%) (Auto) Pending Basophils (%) (Auto) Pending Sodium Level Pending Potassium Level Pending Chloride Level Pending Carbon Dioxide Level Pending Blood Urea Nitrogen Pending Creatinine Pending Estimat Glomerular Filtration Rate Pending Glucose Level Pending Calcium Level Pending Total Bilirubin Pending Gamma Glutamyl Transpeptidase Pending Aspartate Amino Transf (AST/SGOT) Pending Alanine Aminotransferase (ALT/SGPT) Pending Alkaline Phosphatase Pending Total Protein Pending Albumin Pending Globulin Pending Height (Feet): 5 Height (Inches): 5.00 Weight (Pounds): 140 General Appearance: WD/WN, no apparent distress, alert Cardiovascular: normal rate Respiratory/Chest: normal breath sounds, no respiratory distress Abdominal Exam: normal bowel sounds, non tender, soft Extremities: normal range of motion, non-tender Amaury Link NP Apr 14, 2019 09:47
[2019-04-14 10:08] LABS: BASOPHILS % (AUTO) 1.2 % (0.0-2.0); EOSINOPHILS % (AUTO) 2.9 % (0.0-3.0); HEMOGLOBIN 10.8 G/DL (12.0-16.0); LYMPHOCYTES % (AUTO) 33.5 % (20.0-45.0); MEAN CORPUSCULAR VOLUME 95 FL (80-99); MONOCYTES % (AUTO) 6.6 % (1.0-10.0); NEUTROPHILS % (AUTO) 55.8 % (45.0-75.0); PLATELET COUNT 129 K/UL (150-450); RED BLOOD COUNT 3.47 M/UL (4.20-5.40); RED CELL DISTRIBUTION WIDTH 12.2 % (11.6-14.8); WHITE BLOOD COUNT 3.6 K/UL (4.8-10.8)
[2019-04-14 10:14] LABS: ALANINE AMINOTRANSFERASE 150 U/L (12-78); ALBUMIN 3.5 G/DL (3.4-5.0); ALBUMIN/GLOBULIN RATIO 1.2 (1.0-2.7); ALKALINE PHOSPHATASE 140 U/L (46-116); ANION GAP 10 mmol/L (5-15); ASPARTATE AMINO TRANSFERASE 61 U/L (15-37); BILIRUBIN,TOTAL 0.6 MG/DL (0.2-1.0); BLOOD UREA NITROGEN 9 mg/dL (7-18); CALCIUM 9.5 MG/DL (8.5-10.1); CARBON DIOXIDE 24 MMOL/L (21-32); CHLORIDE 109 MMOL/L (98-107); CREATININE 0.8 MG/DL (0.55-1.30); GAMMA GLUTAMYL TRANSPEPTIDASE 64 U/L (5-85); POTASSIUM 4.3 MMOL/L (3.5-5.1); SODIUM 143 MMOL/L (136-145)
[2019-04-14 12:00] VITALS: BP 120/65
--- NOTE | 2019-04-14 12:01 | Nephrology Progress Note ---
Assessment/Plan Problem List: (1) Electrolyte imbalance (2) Anemia (3) Chronic pain syndrome (4) Diverticulitis (5) Pacemaker (6) LFT elevation Assessment: ? statin related Assessment Electrolyte imbalance: Low K and Low Mag Anemia Chronic Pain Smoker / Coccain COPD Pace / Defibrilator diverticulitis Plan DC lipitor for rising LFTs Mag and K supplement given Anemia pond DC IV Colace and Protonix Urine c/s and tox screen 2 D echo per orders Subjective ROS Limited/Unobtainable: No Constitutional: Reports: malaise Objective Objective Last 24 Hour Vital Signs Date Time Temp Pulse Resp B/P (MAP) Pulse Ox O2 Delivery O2 Flow Rate FiO2 04/14/19 09:43 62 114/62 04/14/19 09:00 62 114/62 04/14/19 04:00 97.6 04/14/19 04:00 97.8 61 18 115/66 (82) 98 04/14/19 00:00 97.6 58 18 104/60 (75) 99 04/13/19 21:00 Room Air Room Air 04/13/19 20:41 97.8 04/13/19 20:00 97.8 61 17 101/58 (72) 99 04/13/19 17:59 77 114/67 04/13/19 16:00 97.4 60 17 116/58 (77) 04/13/19 12:29 98.0 60 14 110/51 100 Nasal Cannula 3 04/13/19 12:28 61 18 100 04/13/19 12:27 81 18 100 04/13/19 12:15 61 14 110/55 100 Nasal Cannula 3 04/13/19 12:09 67 14 106/62 100 Nasal Cannula 3 04/13/19 12:04 97.4 81 18 115/72 100 Nasal Cannula 3 Intake and Output 04/13/19 04/14/19 18:59 06:59 Intake Total 800 ml 360 ml Balance 800 ml 360 ml Intake Oral 500 ml 360 ml IV Total 300 ml # Voids 2 3 Laboratory Tests 04/14/19 09:17: White Blood Count 3.6L, Red Blood Count 3.47L, Hemoglobin 10.8L, Hematocrit 33.0L, Mean Corpuscular Volume 95, Mean Corpuscular Hemoglobin 31.0, Mean Corpuscular Hemoglobin Concent 32.6, Red Cell Distribution Width 12.2, Platelet Count 129L, Mean Platelet Volume 9.3, Neutrophils (%) (Auto) 55.8, Lymphocytes ( %) (Auto) 33.5, Monocytes (%) (Auto) 6.6, Eosinophils (%) (Auto) 2.9, Basophils (%) (Auto) 1.2, Sodium Level 143, Potassium Level 4.3, Chloride Level 109H, Carbon Dioxide Level 24, Anion Gap 10, Blood Urea Nitrogen 9, Creatinine 0.8, Estimat Glomerular Filtration Rate > 60, Glucose Level 104, Calcium Level 9.5, Total Bilirubin 0.6, Gamma Glutamyl Transpeptidase 64, Aspartate Amino Transf ( AST/SGOT) 61H, Alanine Aminotransferase (ALT/SGPT) 150H, Alkaline Phosphatase 140H, Total Protein 6.5, Albumin 3.5, Globulin 3.0, Albumin/Globulin Ratio 1.2 Height (Feet): 5 Height (Inches): 5.00 Weight (Pounds): 140 General Appearance: no apparent distress Cardiovascular: normal rate Respiratory/Chest: decreased breath sounds Abdomen: distended Objective no change Joseph Stein MD Apr 14, 2019 12:01
--- NOTE | 2019-04-14 12:32 | Infectious Diseases Prog Note ---
Assessment/Plan Assessment/Plan A 1. history of diverticulitis 2. irritable bowel syndrome 3. COPD. 4. CVA 5. Diverticulosis 6. Gastritis 7. Colon polyp P 1. continue off antibiotics Subjective ROS Limited/Unobtainable: No Constitutional: Reports: no symptoms, other - feels better Respiratory: Reports: no symptoms Gastrointestinal/Abdominal: Reports: nausea, other - pain is decreased Genitourinary: Reports: no symptoms Allergies: Coded Allergies: No Known Allergies (Verified , 08/12/17) Objective Vital Signs Last 24 Hour Vital Signs Date Time Temp Pulse Resp B/P (MAP) Pulse Ox O2 Delivery O2 Flow Rate FiO2 04/14/19 09:43 62 114/62 04/14/19 09:00 62 114/62 04/14/19 04:00 97.6 04/14/19 04:00 97.8 61 18 115/66 (82) 98 04/14/19 00:00 97.6 58 18 104/60 (75) 99 04/13/19 21:00 Room Air Room Air 04/13/19 20:41 97.8 04/13/19 20:00 97.8 61 17 101/58 (72) 99 04/13/19 17:59 77 114/67 04/13/19 16:00 97.4 60 17 116/58 (77) Height (Feet): 5 Height (Inches): 5.00 Weight (Pounds): 140 General Appearance: no acute distress HEENT: mucous membranes moist Respiratory/Chest: lungs clear Cardiovascular: normal rate Abdomen: soft, non tender Extremities: no edema Neurologic/Psychiatric: alert, oriented x 3, responsive Laboratory Tests Test 04/14/19 09:17 White Blood Count 3.6 K/UL (4.8-10.8) L Red Blood Count 3.47 M/UL (4.20-5.40) L Hemoglobin 10.8 G/DL (12.0-16.0) L Hematocrit 33.0 % (37.0-47.0) L Mean Corpuscular Volume 95 FL (80-99) Mean Corpuscular Hemoglobin 31.0 PG (27.0-31.0) Mean Corpuscular Hemoglobin Concent 32.6 G/DL (32.0-36.0) Red Cell Distribution Width 12.2 % (11.6-14.8) Platelet Count 129 K/UL (150-450) L Mean Platelet Volume 9.3 FL (6.5-10.1) Neutrophils (%) (Auto) 55.8 % (45.0-75.0) Lymphocytes (%) (Auto) 33.5 % (20.0-45.0) Monocytes (%) (Auto) 6.6 % (1.0-10.0) Eosinophils (%) (Auto) 2.9 % (0.0-3.0) Basophils (%) (Auto) 1.2 % (0.0-2.0) Sodium Level 143 MMOL/L (136-145) Potassium Level 4.3 MMOL/L (3.5-5.1) Chloride Level 109 MMOL/L (98-107) H Carbon Dioxide Level 24 MMOL/L (21-32) Anion Gap 10 mmol/L (5-15) Blood Urea Nitrogen 9 mg/dL (7-18) Creatinine 0.8 MG/DL (0.55-1.30) Estimat Glomerular Filtration Rate > 60 mL/min (>60) Glucose Level 104 MG/DL (74-106) Calcium Level 9.5 MG/DL (8.5-10.1) Total Bilirubin 0.6 MG/DL (0.2-1.0) Gamma Glutamyl Transpeptidase 64 U/L (5-85) Aspartate Amino Transf (AST/SGOT) 61 U/L (15-37) H Alanine Aminotransferase (ALT/SGPT) 150 U/L (12-78) H Alkaline Phosphatase 140 U/L (46-116) H Total Protein 6.5 G/DL (6.4-8.2) Albumin 3.5 G/DL (3.4-5.0) Globulin 3.0 g/dL Albumin/Globulin Ratio 1.2 (1.0-2.7) Current Medications Medications (Trade) Dose Ordered Sig/Apollo Route PRN Reason Start Time Stop Time Status Last Admin Dose Admin Acetaminophen/ Hydrocodone Bitart ([place] 10/325) 1 tab Q12HR PRN ORAL pain 4-6 04/12/19 10:30 04/17/19 23:14 04/13/19 18:00 Acetaminophen/ Hydrocodone Bitart ([place] 5/325) 1 tab Q6H PRN ORAL pain 1-3 04/12/19 10:30 04/17/19 23:14 04/14/19 03:30 Amlodipine Besylate (Norvasc) 2.5 mg DAILY ORAL 04/12/19 09:00 05/11/19 08:59 Carvedilol (Coreg) 12.5 mg BID ORAL 04/13/19 09:00 05/11/19 08:59 04/14/19 09:43 Clopidogrel Bisulfate (Plavix) 75 mg DAILY ORAL 04/11/19 09:00 05/11/19 08:59 04/14/19 09:38 Docusate Sodium (Colace) 100 mg THREE TIMES A DAY ORAL 04/12/19 13:00 05/12/19 12:59 04/13/19 17:59 Furosemide (Lasix) 40 mg DAILY ORAL 04/13/19 09:00 05/11/19 08:59 04/14/19 09:38 Morphine Sulfate (Morphine Sulfate) 4 mg Q4H PRN IVP pain 7-10 04/12/19 10:30 04/18/19 00:14 04/14/19 09:45 Ondansetron HCl (Zofran) 4 mg Q6H PRN IVP Nausea & Vomiting 04/10/19 23:15 05/10/19 23:14 04/11/19 14:20 Pantoprazole (Protonix) 40 mg EVERY 12 HOURS ORAL 04/12/19 21:00 05/12/19 20:59 04/14/19 09:38 Polyethylene Glycol (Miralax) 17 gm PRN PRN ORAL constipation 04/11/19 00:00 04/23/19 23:59 Potassium Chloride (K-Dur) 20 meq DAILY ORAL 04/14/19 09:00 05/11/19 08:59 04/14/19 09:44 Josep Henderson MD Apr 14, 2019 12:32
[2019-04-14] MEDS: HYDROcodone/Acetamin 10/325 tab ORAL PRN (13:05)
--- NOTE | 2019-04-15 11:59 | Discharge Summary ---
Discharge Summary Discharge Summary _ DATE OF ADMISSION: 04/10/2019 DATE OF DISCHARGE: 04/14/2019 DISCHARGED BY: Dr. Мария De Guzman CONSULTANTS: Dr. Josep Rico [facility] HOSPITAL COURSE: Patient is a 58-year-old female, who is a long-term office patient, presented to ED due to abdominal pain. Pain was described to be located in the left lower quadrant. Pain was constant and severe. Pain was more anteriorly but redictated back to the left flank area. She apparently took [place] and did not help. She had similar pain in the past due to diverticulitis. She denied any fever or chills. No nausea, vomiting or diarrhea. Denied hematemesis, or dysuria. She also had right upper back/arm pain with associated numbness of the forearm. There was no associated injuries. She had a history of stroke. She had implanted defibrillator for cardiomyopathy. She stated it was not working properly and she had problems with a heart rate. She had shortness of breath but no chest pain. On evaluation at the ED, vital signs were stable. Blood work showed WBC of 4.3. Hemoglobin and hematocrit were stable. CMP was normal. Lipase normal. Urinalysis was unremarkable. She required several doses of pain medication. CT of the abdomen and pelvis did not show any acute pathology. She was then admitted for evaluation of abdominal pain, possible diverticulitis. She was given pain management. She was started on morphine and Sal[place]. GI was consulted. Patient has long-standing history of constipation, treated as an outpatient with doses of Linzess and polyethylene glycol. Last colonoscopy was in 2016 and colonoscopy was remarkable for diffuse melanosis coli and diminutive sigmoid colon polyp which showed to be tubular adenoma. There was no diverticulosis. Last endoscopy was in 2016 that showed 2 cm hiatal hernia and biopsies were negative for H. pylori. She was given bowel regimen. Urinalysis was checked to find out the cause of abdominal pain. She was given potassium and magnesium supplements. She was given proton pump inhibitors. She was observed off antibiotic treatment. Anemia work-up showed anemia of chronic disease. Stool OB negative x1. She had thrombocytopenia, HIV panel was negative. On 04/13/2019, she underwent upper endoscopy and colonoscopy. Findings showed diffuse gastritis, hiatal hernia, one colonic polyp, diverticulosis and internal hemorrhoids. She was recommended to have repeat colonoscopy in 5 years. LFTs were elevated. Statin was discontinued. LFTs down trended. Ultrasound showed surgically absent gallbladder; negative for biliary ductal dilatation. Slightly coarsened hepatic echogenicity. Spleen was unremarkable. She was eventually discharged home. FINAL DIAGNOSES: Abdominal pain Possible diverticulitis Gastroenteritis Hypokalemia Hypomagnesemia Chronic pain syndrome Elevated LFTs COPD Pacemaker Colon polyp Right arm pain Anemia of chronic disease Thrombocytopenia Status post EGD and colonoscopy with findings of gastritis, hiatal hernia, colonic polyp, diverticulosis and internal hemorrhoids DISPOSITION: Patient was discharged home. DISCHARGE MEDICATIONS: Refer to Discharge Medication List. DISCHARGE INSTRUCTIONS: Follow-up in a week. I have been assigned to complete a discharge summary on this account, I was not involved with the patient's management. Arianne Ashley NP Apr 15, 2019 11:59
== END 2019-04-14 13:45 | disposition home or self-care (01) | DRG 392 ==
LOC: EMR 15:55 → 3E 16:38 → EDBEDREQ 19:05 → 3E 22:13
PROC: 0DBL8ZZ Excision of Transverse Colon, Via Natural or Artificial Opening Endoscopic (ICD-10-PCS; principal; 2019-04-13 11:33)
PROC: 0DB78ZX Excision of Stomach, Pylorus, Via Natural or Artificial Opening Endoscopic, Diagnostic (ICD-10-PCS; principal; 2019-04-13 11:33)
DX: K57.92 Diverticulitis of intestine, part unspecified, without perforation or abscess without bleeding (principal); I69.351 Hemiplegia and hemiparesis following cerebral infarction affecting right dominant side; K29.70 Gastritis, unspecified, without bleeding; K58.9 Irritable bowel syndrome, unspecified; E87.6 Hypokalemia; K64.8 Other hemorrhoids; Z95.810 Presence of automatic (implantable) cardiac defibrillator; Z79.02 Long term (current) use of antithrombotics/antiplatelets; E78.5 Hyperlipidemia, unspecified; D69.6 Thrombocytopenia, unspecified; K52.9 Noninfective gastroenteritis and colitis, unspecified; E83.42 Hypomagnesemia; G89.4 Chronic pain syndrome; J44.9 Chronic obstructive pulmonary disease, unspecified; M79.601 Pain in right arm; D64.9 Anemia, unspecified; K44.9 Diaphragmatic hernia without obstruction or gangrene; Z90.49 Acquired absence of other specified parts of digestive tract; Z90.710 Acquired absence of both cervix and uterus; Z87.891 Personal history of nicotine dependence; F14.21 Cocaine dependence, in remission; K63.5 Polyp of colon; K63.89 Other specified diseases of intestine
CPT/HCPCS: 36415; 71045; 74176; 76700; 80053; 81001; 82270; 82607; 82728; 82746; 82977; 83036; 83540; 83550; 83690; 83735; 83880; 84100; 84484; 84550; 85007; 85025; 85610; 85730; 86140; 86705; 86709; 86803; 86850; 86900; 86901; 87340; 93005; 93306; 94003; 94150; 96361; 96365; 96368; 96372; 96375; 99285; J2405; J8499

== ENCOUNTER 2019-07-14 13:45 | Emergency (ER) | payer MEDICARE, OTHER ==
[~2019-07-14] VITALS: Ht 154.9 cm; Wt 56.7 kg
[~2019-07-14 13:45] MED LIST changes: +FUROSEMIDE40 MG ORAL; +MIRALAX119 GM PO; +NORCO 10-325 T1 EACH ORAL; +NORVASC2.5 MG ORAL; +POLYETHYLENE GL17 GM ORAL
--- NOTE | 2019-07-14 14:07 | Emergency Room Report ---
History of Present Illness General Chief Complaint: Skin Rash/Abscess Source: Patient, Medical Record Present Illness HPI Patient is a 58-year-old female presents after increased itchy skin rash. Patient reports having multiple areas of increased itchiness to her extremities primarily. She states that she had been taking Benadryl as well as hydrocortisone cream without any improvement in the itching. She has a history of cardiomyopathy in the past. She reports taking multiple medications for this without any relief. Allergies: Coded Allergies: No Known Allergies (Verified , 08/12/17) Patient History Reviewed Nursing Documentation: PMH: Agreed; PSxH: Agreed Nursing Documentation-PMH Past Medical History: No History, Except For Hx Cardiac Problems: Yes - Defibilator on L chest, Cardiomyopathy, CHF Hx Hypertension: Yes Hx Pacemaker: Yes - 2005 Hx Asthma: Yes Hx COPD: Yes Hx Cancer: No Hx Gastrointestinal Problems: Yes - DIVERTICULITS Hx Neurological Problems: Yes Hx Cerebrovascular Accident: Yes - over 10 years ago Hx Seizures: Yes - 30 years ago Hx Weakness: Yes - right-sided weakness Physical Exam Vital Signs Date Time Temp Pulse Resp B/P (MAP) Pulse Ox O2 Delivery O2 Flow Rate FiO2 07/14/19 13:54 98.4 87 18 107/68 (81) 97 Room Air General Appearance: well appearing, no apparent distress, alert, GCS 15, Chronically Ill Head: normocephalic, atraumatic ENT: hearing grossly normal, normal voice Neck: full range of motion, supple Respiratory: no respiratory distress, speaking full sentences Cardiovascular #1: normal inspection Musculoskeletal: normal inspection Neurologic: normal inspection, alert, oriented x3, normal gait Psychiatric: mood/affect normal Skin: other - multiple areas of excoriation, small in size with slight swelling no erythema Medical Decision Making Diagnostic Impression: Primary Impression: Insect bites ER Course Patient presented for multiple skin lesions. Differential diagnosis include was not limited to contact dermatitis, insect bites, scabies, bedbugs among others. Patient has a benign exam and does not appear to require any imaging or laboratory testing at this time. Patient appears to be stable for close outpatient follow-up with her primary care physician. She will be given prescription for other medications for symptom medic treatment. She is advised to follow-up with her primary care physician for recheck. Patient was advised to have her apartment seen by a pest control agent. She is advised to return if worse. Last Vital Signs Date Time Temp Pulse Resp B/P (MAP) Pulse Ox O2 Delivery O2 Flow Rate FiO2 07/14/19 13:54 98.4 87 18 107/68 (81) 97 Room Air Status: improved Disposition: HOME, SELF-CARE Condition: Stable Scripts Hydroxyzine Hcl (HYDROXYZINE HCL) 25 Mg Tablet 25 MG PO EVERY 8 HOURS for itching, #30 TAB Prov: David Hyatt MD 07/14/19 Hydrocortisone 2% Cream (ANTI-ITCH 2% CREAM) Y Cr 28 GM TP DAILY, #28 GM Prov: David Hyatt MD 07/14/19 David Hyatt MD Jul 14, 2019 14:07
[2019-07-14] MEDS ORDERED: ANTI-ITCH28 G1 TP ×3 (14:13→14:16)
[2019-07-14] MEDS ORDERED: HYDROXYZINE HCL25 M1 PO ×3 (14:13→14:16)
--- NOTE | 2019-07-14 14:20 | NUR ---
ER DISCHARGE NOTE: Patient is cleared to be discharged per ERMD, pt is aox4, on room air, with stable vital signs. pt was given dc and prescription instructions, pt was able to verbalize understanding, pt is able to ambulate with steady gait. pt took all belongings.
[2019-07-14 15:15] VITALS: BP 107/68
[2019-07-14 15:16] VITALS: BP 107/68
== END 2019-07-14 14:20 | disposition home or self-care (01) ==
LOC: EMR 14:00
DX: S40.862A Insect bite (nonvenomous) of left upper arm, initial encounter (principal); S40.861A Insect bite (nonvenomous) of right upper arm, initial encounter; S80.862A Insect bite (nonvenomous), left lower leg, initial encounter; S80.861A Insect bite (nonvenomous), right lower leg, initial encounter; W57.XXXA Bitten or stung by nonvenomous insect and other nonvenomous arthropods, initial encounter; Y92.9 Unspecified place or not applicable; I11.0 Hypertensive heart disease with heart failure; I50.9 Heart failure, unspecified; Z95.810 Presence of automatic (implantable) cardiac defibrillator; J44.9 Chronic obstructive pulmonary disease, unspecified; K57.90 Diverticulosis of intestine, part unspecified, without perforation or abscess without bleeding; Z86.73 Personal history of transient ischemic attack (TIA), and cerebral infarction without residual deficits
CPT/HCPCS: 99282

== ENCOUNTER 2020-06-23 17:54 | Inpatient (IN) | payer MEDICARE, OTHER ==
[~2020-06-23] VITALS: Ht 154.9 cm; Wt 64.4 kg
[~2020-06-23 17:54] MED LIST changes: +ANTI-ITCH28 G1 TP; +HYDROXYZINE HCL25 M1 PO
--- NOTE | 2020-06-23 18:06 | NUR ---
ED Nurse Note: came to ED due to severe lower back pain with SOB and nausea since last night. Pt reports that low back pain shoots down right leg
[2020-06-23 18:08] VITALS: BP 125/76
[2020-06-23] MEDS ORDERED: Ketorolac 30mg Inj IV ONE (18:15)
[2020-06-23] MEDS ORDERED: Omnipaque-300 100ml vial INJ PRN (18:15)
--- NOTE | 2020-06-23 18:19 | Emergency Room Report ---
History of Present Illness General Chief Complaint: Back Pain-No Injury Source: Patient (Gabriela Lomas) Present Illness HPI 59-year-old female with history of cardiomyopathy and a defibrillator placed and , here complaining of 2 days of right-sided flank pain rating a 10 out of 10 with radiation to right lower leg, and right suprapubic area. Denies any urinary frequency and urgency. Complains of nausea however denies vomiting, diarrhea and constipation. Denies fever and chills however complains of 2 days of cough without any congestion. Complains of minimal shortness of breath. Has not taken medication other than [place] that was given to her for chronic pain. Patient denies any sore throat and loss of taste or smell. Denies any fall or injury. 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 Is neurovascularly intact. Denies unilateral generalized weakness. Denies hematuria. (Gabriela Lomas) Allergies: Coded Allergies: No Known Allergies (Verified , 06/23/20) COVID-19 Screening Contact w/high risk pt: No Experienced COVID-19 symptoms?: Yes COVID-19 Testing performed INSURANCE EXAMINER: No (Gabriela Lomas) Patient History Past Medical History: see triage record Past Surgical History: none Pertinent Family History: none Last Menstrual Period: none Now: No Immunizations: UTD Reviewed Nursing Documentation: PMH: Agreed; PSxH: Agreed (Gabriela Lomas) Nursing Documentation-PMH Past Medical History: No History, Except For Hx Cardiac Problems: Yes - Defibilator on L chest, Cardiomyopathy, CHF Hx Hypertension: Yes Hx Pacemaker: Yes - 2005 Hx Asthma: Yes Hx COPD: Yes Hx Cancer: No Hx Gastrointestinal Problems: Yes - DIVERTICULITS Hx Neurological Problems: Yes Hx Cerebrovascular Accident: Yes - over 10 years ago Hx Seizures: Yes - 30 years ago Hx Weakness: Yes - right-sided weakness (Gabriela Lomas) Review of Systems All Other Systems: negative except mentioned in HPI (Gabriela Lomas) Physical Exam Vital Signs Date Time Temp Pulse Resp B/P (MAP) Pulse Ox O2 Delivery O2 Flow Rate FiO2 06/23/20 17:57 96.8 69 18 125/76 (92) 97 Room Air Sp02 EP Interpretation: reviewed, normal General Appearance: no apparent distress, alert, GCS 15, non-toxic Head: normocephalic, atraumatic Eyes: bilateral eye normal inspection, bilateral eye PERRL ENT: hearing grossly normal, normal pharynx, no angioedema, normal voice Neck: full range of motion, supple/symm/no masses Respiratory: chest non-tender, lungs clear, normal breath sounds, no rhonchi, no retraction, speaking full sentences Cardiovascular #1: regular rate, rhythm, no edema Gastrointestinal: normal bowel sounds, non tender, soft, no mass, no peritonitis, no bruit, non-distended, no guarding, no pulsatile mass, no rebound Rectal: deferred Genitourinary: CVA tenderness (R) Musculoskeletal: back normal, non-tender Neurologic: alert, motor strength/tone normal, oriented x3, sensory intact, responsive, speech normal Psychiatric: judgement/insight normal, memory normal, mood/affect normal, no suicidal/homicidal ideation Skin: no rash Lymphatic: no adenopathy (Gabriela Lomas) Medical Decision Making PA Attestation All my diagnosis and treatment plans were reviewed ad discussed with my supervising physician Dr. Hyatt (Gabriela Lomas) Diagnostic Impression: Primary Impression: Umbilical hernia Additional Impressions: Hiatal hernia Constipation Elevated d-dimer ER Course 59-year-old female with history of cardiomyopathy and a defibrillator placed and , here complaining of 2 days of right-sided flank pain rating a 10 out of 10 with radiation to right lower leg, and right suprapubic area. Denies any urinary frequency and urgency. Complains of nausea however denies vomiting, diarrhea and constipation. Denies fever and chills however complains of 2 days of cough without any congestion. Complains of minimal shortness of breath. Has not taken medication other than [place] that was given to her for chronic pain. Patient denies any sore throat and loss of taste or smell. Denies any fall or injury. 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 Is neurovascularly intact. Denies unilateral generalized weakness. Denies hematuria. Ddx considered but are not limited to: appendicitis, cholecystis, gastritis, gastroenteritis, UTI, pyelonephritis, SBO, diverticulitis, influenza with GI manifestation, CO, abdominal wall hernia Vital signs: are WNL, pt. is afebrile H&PE are most consistent with: elevated dimer Umbilical hernia, hiatal hernia, constipation ORDERS: abdominal CT, abdominal pain set, EKG, troponin, d-dimer, lactulose, Motrin,zofran, omeprazole , CTA chest ED INTERVENTIONS: NS bolus, Toradol, Zofran, morphin Right lower Accolate and d-dimer due to patient shortness of breath and cough and was waiting culture results before proceeding with a CT scan however for CT scan was done before the culture results were back. Patient had to have a CTA after having a CT chest abdomen pelvis with contrast due to elevated dimer. I signed out the patient to 8:30 PM (Gabriela Lomas) ER Course Patient presented for chest and abdominal pain. Differential diagnosis include was not limited to pneumonia, bronchitis, aortic dissection, pulmonary embolism among others. Because of complexity of patient's case laboratory tests and imaging studies were ordered. Laboratory testing showed some evidence of urinary infection with an initial negative troponin. Patient's d-dimer was noted to be markedly elevated. Coronavirus testing was noted to be negative. Patient was discussed with Dr. Montoya who is the patient's primary care physician and patient be admitted for further monitoring. Labs Test 06/23/20 18:30 06/23/20 20:18 White Blood Count 5.1 K/UL (4.8-10.8) Red Blood Count 4.49 M/UL (4.20-5.40) Hemoglobin 13.8 G/DL (12.0-16.0) Hematocrit 42.5 % (37.0-47.0) Mean Corpuscular Volume 95 FL (80-99) Mean Corpuscular Hemoglobin 30.7 PG (27.0-31.0) Mean Corpuscular Hemoglobin Concent 32.5 G/DL (32.0-36.0) Red Cell Distribution Width 13.7 % (11.6-14.8) Platelet Count 200 K/UL (150-450) Mean Platelet Volume 10.5 FL (6.5-10.1) Neutrophils (%) (Auto) 43.8 % (45.0-75.0) Lymphocytes (%) (Auto) 45.8 % (20.0-45.0) Monocytes (%) (Auto) 5.5 % (1.0-10.0) Eosinophils (%) (Auto) 3.4 % (0.0-3.0) Basophils (%) (Auto) 1.4 % (0.0-2.0) Prothrombin Time 10.7 SEC (9.30-11.50) Prothromb Time International Ratio 1.0 (0.9-1.1) Activated Partial Thromboplast Time 26 SEC (23-33) D-Dimer 4.06 mg/L FEU (0.00-0.49) Sodium Level 138 MMOL/L (136-145) Potassium Level 3.8 MMOL/L (3.5-5.1) Chloride Level 101 MMOL/L (98-107) Carbon Dioxide Level 26 MMOL/L (21-32) Anion Gap 12 mmol/L (5-15) Blood Urea Nitrogen 15 mg/dL (7-18) Creatinine 1.1 MG/DL (0.55-1.30) Estimat Glomerular Filtration Rate > 60 mL/min (>60) Glucose Level 103 MG/DL (74-106) Calcium Level 9.9 MG/DL (8.5-10.1) Total Bilirubin 0.6 MG/DL (0.2-1.0) Aspartate Amino Transf (AST/SGOT) 35 U/L (15-37) Alanine Aminotransferase (ALT/SGPT) 36 U/L (12-78) Alkaline Phosphatase 136 U/L (46-116) Troponin I 0.000 ng/mL (0.000-0.056) Total Protein 9.3 G/DL (6.4-8.2) Albumin 4.6 G/DL (3.4-5.0) Globulin 4.7 g/dL Albumin/Globulin Ratio 1.0 (1.0-2.7) Lipase 90 U/L (73-393) Urine Color Pale yellow Urine Appearance Cloudy Urine pH 6.5 (4.5-8.0) Urine Specific [place] 1.010 (1.005-1.035) Urine Protein 1+ (NEGATIVE) Urine Glucose (UA) Negative (NEGATIVE) Urine Ketones Negative (NEGATIVE) Urine Blood Negative (NEGATIVE) Urine Nitrite Negative (NEGATIVE) Urine Bilirubin Negative (NEGATIVE) Urine Urobilinogen Normal MG/DL (0.0-1.0) Urine Leukocyte Esterase 2+ (NEGATIVE) Urine RBC 0-2 /HPF (0 - 2) Urine WBC 10-15 /HPF (0 - 2) Urine Squamous Epithelial Cells Many /LPF (NONE/OCC) Urine Bacteria Moderate /HPF (NONE) (David Hyatt MD) EKG Diagnostic Results Rate: normal Rhythm: NSR ST Segments: no acute changes Other Impression No acute ST changes (Gabriela Lomas) Rate: normal Rhythm: NSR ST Segments: no acute changes (David Hyatt MD) Chest X-Ray Diagnostic Results Chest X-Ray Diagnostic Results : Chest X-Ray Ordered: Yes # of Views/Limited/Complete: 1 View Indication: Shortness of Breath EP Interpretation: Yes PA Xray: Interpretation reviewed, by supervising MD, and agrees with findings. Interpretation: no consolidation, no effusion, no pneumothorax Impression: No acute disease Electronically Signed by: Gabriela VERONICA Scribe Text FINDINGS: Lungs: Unremarkable. No consolidation. Pleural space: No pleural effusions. No pneumothorax. Heart: Cardiomegaly. Mediastinum: Unremarkable. Bones/joints: Ribs are unremarkable. Soft tissues: Soft tissues are unremarkable. Tubes, lines and devices: Pacemaker overlies the left lower chest. Other findings: Hypoaeration. IMPRESSION: 1. Hypoaeration. 2. Mild cardiomegaly. 3. No pleural effusion. (Gabriela Lomas) CT/MRI/US Diagnostic Results CT/MRI/US Diagnostic Results : Imaging Test Ordered: CT abdomen pelvis with contrast Impression FINDINGS: Lung bases: Minimal scarring and atelectasis posteriorly at the lung bases. Mediastinum: Small hiatal hernia. Probable distal esophagitis. ABDOMEN: Liver: Diffuse fatty infiltration of the liver is noted. The liver and the spleen enhance uniformly. Gallbladder and bile ducts: Unremarkable. No calcified stones. No ductal dilation. Pancreas: See below. Spleen: See above. Adrenals: The adrenal glands, the head, body, tail of the pancreas are unremarkable. Kidneys and ureters: Both kidneys are shown to excrete contrast bilaterally. No renal calculus or hydronephrosis. Stomach and bowel: Moderate quantity of stool throughout the colon. No evidence of bowel obstruction. A 1.8 x 2.5 cm umbilical hernia containing mesenteric fat only. No mucosal thickening. PELVIS: Appendix: No findings to suggest acute appendicitis. Bladder: The bladder is unremarkable but underdistended per Reproductive: The patient is status post hysterectomy. ABDOMEN and PELVIS: Intraperitoneal space: Unremarkable. No free air. No significant fluid collection. Bones/joints: Mild to moderate degenerative disc disease of the thoracolumbar spine. Moderate to severe osteoarthritic changes about the sacroiliac joints. Alignment of the thoracolumbar spine is unremarkable. Sacrum and coccyx are unremarkable. The superior and inferior pubic rami are unremarkable. Mild to moderate osteoarthritic changes about the hip joints. Transverse processes are unremarkable. Dextro scoliosis of the lumbar spine. No spondylolysis or spinal listhesis. The sacrum and coccyx are unremarkable. No acute fracture. Soft tissues: Ischiorectal fat is clean. 3 cm umbilical hernia containing mesenteric fat only. Vasculature: Flow is demonstrated within the celiac, SMA, the renal arteries, and NATHANAEL. No abdominal aortic aneurysm. Lymph nodes: No retroperitoneal lymphadenopathy. No pelvic or inguinal lymphadenopathy. IMPRESSION: 1. Small hiatal hernia and probable distal esophagitis. 2. Fatty infiltration of the liver. 3. Status post cholecystectomy. 4. No renal calculus or hydronephrosis. 5. Medical hernia containing mesenteric fat only. 6. Moderate quantity of stool throughout the colon. 7. No evidence of bowel obstruction. 8. Status post hysterectomy. 9. The appendix is unremarkable. (Gabriela Lomas) Last Vital Signs Date Time Temp Pulse Resp B/P (MAP) Pulse Ox O2 Delivery O2 Flow Rate FiO2 06/23/20 18:08 96.8 79 18 125/76 97 Room Air (Gabriela Lomas) Status: improved (David Hyatt MD) Disposition: ADMITTED INPATIENT Condition: Stable Scripts Ibuprofen* (MOTRIN*) 600 Mg Tablet 600 MG ORAL THREE TIMES A DAY, #30 TAB Prov: Gabriela Lomas 06/23/20 Ondansetron (Zofran) 4 Mg Tablet 4 MG ORAL Q6H PRN for Nausea & Vomiting, #14 TAB Prov: Gabriela Lomas 06/23/20 Lactulose (LACTULOSE) 10 Gm/15 Ml Solution 15 ML PO BID, #300 ML Prov: Gabriela Lomas 06/23/20 Patient Instructions: Constipation, Adult, [id number], Hiatal Hernia Additional Instructions: Take medication as directed, follow with your primary care provider, increase oral hydration, increase your fiber, worsening symptoms return to the emergency room Gabriela Lomas Jun 23, 2020 18:19 David Hyatt MD Jun 23, 2020 22:51
--- NOTE | 2020-06-23 18:39 | NUR ---
ED Nurse Note: xray at bedside
--- NOTE | 2020-06-23 18:50 | Diagnostic Imaging Report ---
EXAM: XR Chest, 1 View CLINICAL HISTORY: PAIN TECHNIQUE: Frontal view of the chest. COMPARISON: 04/10/2019. FINDINGS: Lungs: Unremarkable. No consolidation. Pleural space: No pleural effusions. No pneumothorax. Heart: Cardiomegaly. Mediastinum: Unremarkable. Bones/joints: Ribs are unremarkable. Soft tissues: Soft tissues are unremarkable. Tubes, lines and devices: Pacemaker overlies the left lower chest. Other findings: Hypoaeration. IMPRESSION: 1. Hypoaeration. 2. Mild cardiomegaly. 3. No pleural effusion.
[2020-06-23 18:56] LABS: BASOPHILS % (AUTO) 1.4 % (0.0-2.0); EOSINOPHILS % (AUTO) 3.4 % (0.0-3.0); HEMATOCRIT 42.5 % (37.0-47.0); HEMOGLOBIN 13.8 G/DL (12.0-16.0); LYMPHOCYTES % (AUTO) 45.8 % (20.0-45.0); MEAN CORPUSCULAR VOLUME 95 FL (80-99); MONOCYTES % (AUTO) 5.5 % (1.0-10.0); NEUTROPHILS % (AUTO) 43.8 % (45.0-75.0); PLATELET COUNT 200 K/UL (150-450); RED BLOOD COUNT 4.49 M/UL (4.20-5.40); RED CELL DISTRIBUTION WIDTH 13.7 % (11.6-14.8); WHITE BLOOD COUNT 5.1 K/UL (4.8-10.8)
[2020-06-23 18:58] LABS: ANION GAP 12 mmol/L (5-15); BLOOD UREA NITROGEN 15 mg/dL (7-18); CALCIUM 9.9 MG/DL (8.5-10.1); CARBON DIOXIDE 26 MMOL/L (21-32); CHLORIDE 101 MMOL/L (98-107); CREATININE 1.1 MG/DL (0.55-1.30); POTASSIUM 3.8 MMOL/L (3.5-5.1); SODIUM 138 MMOL/L (136-145)
[2020-06-23 19:08] LABS: ALANINE AMINOTRANSFERASE 36 U/L (12-78); ALBUMIN 4.6 G/DL (3.4-5.0); ALKALINE PHOSPHATASE 136 U/L (46-116); ASPARTATE AMINO TRANSFERASE 35 U/L (15-37); BILIRUBIN,TOTAL 0.6 MG/DL (0.2-1.0)
--- NOTE | 2020-06-23 19:15 | NUR ---
ED Nurse Note: Report received from RUBY Albarado.
--- NOTE | 2020-06-23 19:58 | Diagnostic Imaging Report ---
EXAM: CT Abdomen and Pelvis With Intravenous Contrast CLINICAL HISTORY: PAIN TECHNIQUE: Axial computed tomography images of the abdomen and pelvis with intravenous contrast. CTDI is 5.9 mGy and DLP is 297.2 mGy-cm. One or more of the following dose reduction techniques were used: automated exposure control, adjustment of the mA and/or kV according to patient size, use of iterative reconstruction technique. COMPARISON: 04/10/2019. FINDINGS: Lung bases: Minimal scarring and atelectasis posteriorly at the lung bases. Mediastinum: Small hiatal hernia. Probable distal esophagitis. ABDOMEN: Liver: Diffuse fatty infiltration of the liver is noted. The liver and the spleen enhance uniformly. Gallbladder and bile ducts: Unremarkable. No calcified stones. No ductal dilation. Pancreas: See below. Spleen: See above. Adrenals: The adrenal glands, the head, body, tail of the pancreas are unremarkable. Kidneys and ureters: Both kidneys are shown to excrete contrast bilaterally. No renal calculus or hydronephrosis. Stomach and bowel: Moderate quantity of stool throughout the colon. No evidence of bowel obstruction. A 1.8 x 2.5 cm umbilical hernia containing mesenteric fat only. No mucosal thickening. PELVIS: Appendix: No findings to suggest acute appendicitis. Bladder: The bladder is unremarkable but underdistended per Reproductive: The patient is status post hysterectomy. ABDOMEN and PELVIS: Intraperitoneal space: Unremarkable. No free air. No significant fluid collection. Bones/joints: Mild to moderate degenerative disc disease of the thoracolumbar spine. Moderate to severe osteoarthritic changes about the sacroiliac joints. Alignment of the thoracolumbar spine is unremarkable. Sacrum and coccyx are unremarkable. The superior and inferior pubic rami are unremarkable. Mild to moderate osteoarthritic changes about the hip joints. Transverse processes are unremarkable. Dextro scoliosis of the lumbar spine. No spondylolysis or spinal listhesis. The sacrum and coccyx are unremarkable. No acute fracture. Soft tissues: Ischiorectal fat is clean. 3 cm umbilical hernia containing mesenteric fat only. Vasculature: Flow is demonstrated within the celiac, SMA, the renal arteries, and NATHANAEL. No abdominal aortic aneurysm. Lymph nodes: No retroperitoneal lymphadenopathy. No pelvic or inguinal lymphadenopathy. IMPRESSION: 1. Small hiatal hernia and probable distal esophagitis. 2. Fatty infiltration of the liver. 3. Status post cholecystectomy. 4. No renal calculus or hydronephrosis. 5. Medical hernia containing mesenteric fat only. 6. Moderate quantity of stool throughout the colon. 7. No evidence of bowel obstruction. 8. Status post hysterectomy. 9. The appendix is unremarkable.
[2020-06-23] MEDS ORDERED: IBUPROFEN600 M1 ORAL (20:06)
[2020-06-23] MEDS ORDERED: ZOFRAN4 M1 ORAL (20:06)
[2020-06-23] MEDS ORDERED: LACTULOSE10 GM/153 PO (20:06)
[2020-06-23] MEDS ORDERED: Omnipaque 350 100ml vial INJ PRN (20:15)
--- NOTE | 2020-06-23 20:20 | NUR ---
ED Nurse Note: Patient able to ambulate with steady gait to restroom. Urine sample provided and sent to lab. Patient is aaox4, no respiratory or acute distress noted. Will cont. to monitor patient.
[2020-06-23] MEDS ORDERED: Morphine Sulfate 2mg/ml Inj(IV/IM USE ONLY) IVP ONE (20:30)
[2020-06-23 20:52] LABS: APPEARANCE,URINE CLOUDY; BILIRUBIN, URINE NEGATIVE (NEGATIVE); COLOR,URINE PALE YELLOW; GLUCOSE, URINE (UA) NEGATIVE (NEGATIVE); KETONES,URINE NEGATIVE (NEGATIVE); LEUKOCYTE ESTERASE ,URINE 2+ (NEGATIVE); NITRITE,URINE NEGATIVE (NEGATIVE); PH,URINE 6.5 (4.5-8.0); PROTEIN,URINE 1+ (NEGATIVE); UROBILINOGEN,URINE NORMAL MG/DL (0.0-1.0)
--- NOTE | 2020-06-23 21:50 | Diagnostic Imaging Report ---
EXAM: CT Angiography Chest With Intravenous Contrast CLINICAL HISTORY: PE TECHNIQUE: Axial computed tomographic angiography images of the chest with intravenous contrast. CTDI is 17.3 mGy and DLP is 229.6 mGy-cm. One or more of the following dose reduction techniques were used: automated exposure control, adjustment of the mA and/or kV according to patient size, use of iterative reconstruction technique. MIP reconstructed images were created and reviewed. COMPARISON: Plain film evaluation of the chest performed earlier today. FINDINGS: Pulmonary arteries: No central pulmonary embolism is noted. No peripheral pulmonary embolism detected. Aorta: Atherosclerotic disease of the thoracic aorta. No thoracic aortic aneurysm. Lungs: Evaluation of the left pulmonary parenchyma reveals subsegmental atelectasis at the left lung base. The airways patent. No mass. Pleural space: Evaluation of the right pulmonary parenchyma reveals no pulmonary nodules or pleural effusions. No pneumothorax. Heart: Unremarkable. No cardiomegaly. No significant pericardial effusion. No evidence of RV dysfunction. Mediastinum: Small hiatal hernia and probable distal esophagitis. Bones/joints: Best seen on series 7 image 42, there is 2.5 x 1.8 cm abnormal soft tissue right paraspinal region midthoracic spine of uncertain etiology. Moderate to severe degenerative disc disease of the thoracic spine and kyphosis. No acute fracture. No dislocation. Soft tissues: Unremarkable. Lymph nodes: Unremarkable. No enlarged lymph nodes. Liver: Fatty infiltration of the liver. Gallbladder and bile ducts: Status post cholecystectomy. Tubes, lines and devices: Pacemaker overlies the left upper chest. Other findings: Hypoaeration. IMPRESSION: 1. No central or peripheral pulmonary emboli detected. 2. Right paracentral mass lesion adjacent to the mid thoracic spine of uncertain etiology. Magnetic resonance imaging of the thoracic spine with gadolinium administration is advised to further assessment of this finding.
[2020-06-23] MEDS ORDERED: cefTRIAXone 1 GM in NS 55 ML IVPB ONE (22:45)
[2020-06-23] MEDS ORDERED: Morphine Sulfate 4mg/ml Inj (IV USE ONLY) IVP ONE (22:45)
--- NOTE | 2020-06-23 23:00 | NUR ---
ED Nurse Note: Patient is resting in room with safety measures in place. She is aware of hospital admission; MD speaking with patient. She is in no acute distress. Plan of care explained to patient on multiple occasions. Breathing is normal/unlabored. Will continue to monitor patient.
--- NOTE | 2020-06-24 00:28 | NUR ---
ED Nurse Note: Report given to RUBY Soriano.
--- NOTE | 2020-06-24 00:40 | NUR ---
ED Nurse Note: Patient is stable for transfer to tele unit at this time per ERMD. Patient is aaox4, breathing is normal and unlabored and VSS at time of ED depature. Patient taken to unit via wheelchair, connected to ekg monitor tech and transferred to tele bed without complication. Pt has R EJ IV patent and intact. She took all belongings with her to unit. Transferred care to receiving RN.
--- NOTE | 2020-06-24 01:00 | NUR ---
NURSE NOTES: Received report from ER and charge nurse. Patient being admitted to [facility] for cardiomyopathy and CHF, c/o pain on lower back which radiates down to right leg. Patient given Morphine in ER and appears comfortable at this time and stated that medication helped relieved pain. She is alert and oriented x. She is ambulatory, slightly unsteady and weak. She stated that she has a cane but left it at home. Patient on fall precautions. Call light and bedside table within reach. Yellow gown and non skid socks provided. Bed at lowest position and locked with side rails up. Orders received from MD to continue home medication. Admission orders noted and carried out. Confirmed home medication and dose with patient. V/S BP 113/58, Pulse 61, O2 sat 100%, RR 17, Temp 96.9. Skin is clear and intact. Cardiac rhythm is sinus rhythm. Will continue with plan of care.
[2020-06-24] MEDS ORDERED: HYDROcodone/Acetamin 5/325 tab ORAL PRN ×2 (02:15→03:01)
[2020-06-24] MEDS ORDERED: Miralax 17gm pkt ORAL PRN (02:15)
[2020-06-24] MEDS ORDERED: HYDROcodone/Acetamin 10/325 tab ORAL PRN ×2 (02:15→02:45)
[2020-06-24 04:00] VITALS: BP 113/59
--- NOTE | 2020-06-24 07:40 | NUR ---
NURSE HAND-OFF REPORT: Important Events on Shift:[Dr. Montyoa made aware that [place] ineffective and patient requesting IV Zofran. No response at this time. Will endorse to incoming shift] Patient Status: [Stable x4] Diet: [Cardiac, MATTEO] Pending Orders: [] Pending Results/Labs:[] Pending MD notification:[Dr. Montoya] Latest Vital Signs: Temperature 96.8 , Pulse 64 , B/P 113 /59 , Respiratory Rate 16 , O2 SAT 100 , Room Air, O2 Flow Rate . Vital Sign Comment: [] EKG Rhythm: Sinus Rhythm Rhythm change?: N MD Notified?: - MD Response: Latest Weller Fall Score: 45 Fall Risk: High Risk Safety Measures: Call light Within Reach, Bed Alarm Zone 2, Side Rails Side Rails x2, Bed position Low and Locked. Fall Precautions: Yellow Socks Yellow Gown Door Sign Patient Fall Education Report given to [Jerardo RN].
--- NOTE | 2020-06-24 08:00 | NUR ---
NURSE NOTES: Pt awake/alert in bed, breathing easily on room air, denies SOB but c/o 10/10 lower back pain and angry that she cannot get IV pain medication. Pt asking to sign out AMA but when given the AMA form demanded to see the charge nurse. Vital signs stable with A-pace rhythm @ 60 on monitor. IV access right EJ, flushed with 10 ml NS and locked. Bed left in low position, side rails up x 2 and call light left near pt's hand.
[2020-06-24] MEDS ORDERED: Morphine Sulfate 2mg/ml Inj(IV/IM USE ONLY) IVP PRN (08:15)
[2020-06-24 08:19] VITALS: BP 116/68
[2020-06-24] MEDS: Furosemide 40mg tab ORAL SCH ×2 (09:12→18:26)
[2020-06-24] MEDS: Carvedilol 25mg Tab ORAL SCH ×2 (09:12→18:25)
[2020-06-24] MEDS: Morphine Sulfate 2mg/ml Inj(IV/IM USE ONLY) IVP PRN ×3 (09:14→19:56)
[2020-06-24 12:00] VITALS: BP 122/71
--- NOTE | 2020-06-24 13:00 | Consultation ---
DATE OF CONSULTATION: 06/24/2020 PULMONARY CONSULTATION CONSULTING PHYSICIAN: Sam Guzman MD. HISTORY OF PRESENT ILLNESS: This is a 59-year-old female with a history of ICD and cardiomyopathy. She came to the hospital with complaints of chest heaviness and shortness of breath. She denies any cough or fever. No COVID like symptoms. She also complained of right lower quadrant pain as well as pain in the right leg and right suprapubic area. She has been taking [place] for the same. PAST MEDICAL HISTORY: Notable for cardiomyopathy, CHF, ICD. Also reports history of asthma and COPD as well as diverticulitis. She states she had a CVA many years ago and has a remote history of seizures. MEDICATIONS: List of medications includes Coreg, Plavix, Lasix, [place], and potassium. REVIEW OF SYSTEMS: Denies any headaches, hematemesis, melena, hematochezia, night sweats, or weight loss. PHYSICAL EXAMINATION: VITAL SIGNS: Blood pressure 116/68, heart rate 60, respirations 16, O2 saturation 98% on room air. She is afebrile. GENERAL: Reveals a 59-year-old female. HEENT: Unremarkable. CHEST: Shows clear breath sounds bilaterally. Pacemaker is noted left infraclavicular fossa. ABDOMEN: Soft. EXTREMITIES: There is no edema. NEUROLOGIC: Nonfocal. LABORATORY DATA: Lab testing is unremarkable. Normal CBC and BMP. Coags are negative. Urinalysis is negative. D-dimer is mildly elevated. She has few pus cells. IMAGING STUDIES: Imaging studies were obtained. She underwent CT chest, which showed atelectasis left base. Pacemaker is noted. There is a right paracentral lesion adjacent to the mid thoracic spine of uncertain etiology. MRI spine is recommended. IMPRESSION: 1. Chest heaviness. 2. Cardiomyopathy. 3. ICD. 4. Asthma. 5. Previous CVA. 6. Right mid thoracic spine lesion/mass. DISCUSSION: The right mid thoracic mass/lesion may be incidental. I do not suspect this is causing any symptoms. This would be best evaluated by MRI. However, she has an ICD in place. Therefore, an MRI is not advisable. We will recommend outpatient evaluation by primary care physician. At this point, recommend cardiac evaluation. No pulmonary active issues noted except discussed above. We will follow as needed. Sam Guzman M.D. DR: DAVID JOB#: [id number] CC:
[2020-06-24 16:00] VITALS: BP 118/68
--- NOTE | 2020-06-24 19:30 | NUR ---
NURSE NOTES: Received hand-off report from RUBY Kurtz. Patient alert and oriented x4, breathing is even and unlabored, vital signs are stable, bilateral radial pulses are palpable +2, bed in lowest and locked position, EJ IV catheter patent and flushing well, no pain, no tenderness, no redness, no infiltration. Complaints of pain on right forearm 22g and redness noted. Discontinued IV on right forearm 22g. Site is now clean, dry, intact, no redness, no infiltration, no pain, no tenderness.
--- NOTE | 2020-06-24 19:30 | Consultation ---
DATE OF CONSULTATION: 06/24/2020 GASTROENTEROLOGY CONSULTATION CONSULTING PHYSICIAN: Julian Macario MD. CHIEF COMPLAINT: I was asked to see this patient by Dr. Мария Montoya for evaluation of esophageal issues. HISTORY OF PRESENT ILLNESS: The patient is a pleasant 59-year-old woman, who was brought into the hospital with occasional substernal chest pain, which is relieved on water. She has dysphagia and has a history of abdominal pain. She has occasional nausea and vomiting. Some decrease in her appetite has been noted. Her last endoscopy and colonoscopy was done in January 2016 and October 2014. The endoscopy showed a 2 cm hiatal hernia with no ulcerations. PAST MEDICAL HISTORY: Remarkable for cardiomegaly, congestive heart failure, history of ventricular tachycardia, status post defibrillator and pacemaker placement, history of stroke, history of elevated liver tests, chronic constipation, melanosis coli, and history of adenomatous colon polyp. PAST SURGICAL HISTORY: Status post cholecystectomy, status post hysterectomy, and status post pacemaker placement. ALLERGIES: None. FAMILY HISTORY: Positive for lupus in her sister, heart disease in mother and heart disease and arrhythmias in the daughters. SOCIAL HISTORY: The patient was previously smoking, used crack cocaine. She is . She has 2 daughters. REVIEW OF SYSTEMS: Otherwise negative. MEDICATIONS: See the chart list for details. PHYSICAL EXAMINATION: GENERAL: Pleasant woman who is seen in her room. HEENT: Normocephalic and atraumatic. Sclerae anicteric. Oropharynx clear. NECK: Supple. CHEST: Clear to auscultation. CARDIAC: Regular rate and rhythm. ABDOMEN: Soft with good bowel sounds. There is no organomegaly. EXTREMITIES: Revealed no edema. LABORATORY DATA: Noted. ASSESSMENT: This patient presents with some chest discomfort, which is in relived by water. However, she does not have a constant pattern of pyrosis. Her imaging studies showed there was some apparent distal esophagitis. The hiatal hernia was seen, which was seen on the previous endoscopy as well. The patient should be placed on a proton pump inhibitor to treat the acid reflux and she would be considered for endoscopy versus an upper GI series in the next week should she be agreeable. In the meantime, her diet can be continued and weight loss should be encouraged. I would keep the head of the bed elevated at most times if feasible. RECOMMENDATIONS: Per above discussion and per orders in the chart. Thank you for asking me to participate in the care of this patient. Julian Macario M.D. DR: Rosa JOB#: [id number] CC:
[2020-06-24 20:00] VITALS: BP 95/48
--- NOTE | 2020-06-24 21:50 | NUR ---
HAND-OFF: Report given to RUBY Gaitan in med-surg unit. Patient safely transferred from 209-2 to 303-2 via patient bed. Patient in stable condition, vital signs stable. Alert and orientedx4, breathing even and unlabored. Patient belonging accounted for in front of patient and confirmed with RN. cyber operator removed and given to RENU Maya. Patient chart given to receiving RN and patient belongings list signed. EJ on right side is patent and flushing well, no redness, no tenderness, no infiltration, no pain noted.
--- NOTE | 2020-06-24 23:30 | Consultation ---
DATE OF CONSULTATION: 06/24/2020 CARDIOLOGY CONSULTATION REFERRING PHYSICIAN: Мария Montoya MD REASON FOR CONSULTATION: Management of chest pain. HISTORY OF PRESENT ILLNESS: The patient is a very unfortunate 59-year-old female with history of cardiomyopathy, status post AICD pacemaker implantation, history of hypertension, history of COPD/asthma, diverticulosis, CVA with right hemiparesis, and seizures, who presents to the hospital with complaints of right flank pain that has been going on for about 3 days with intensity of 10/10 with radiation to the right lower leg and right suprapubic area. The patient at the time of arrival to the hospital did not have any complaints of urinary frequency, urgency, dysuria, or hematuria. She also has been having a cough with associated minimal shortness of breath. At the time of arrival to the hospital, blood pressure was 125/76 mmHg, heart rate was 69. She was afebrile. A 12-lead electrocardiogram showed sinus rhythm at a rate of 63 with left axis deviation and T-wave inversion in lead V2 and V3 as well as V4 and V5, which was significant for possible ischemia in the anteroseptal and lateral wall. In the emergency department, initial blood test showed that the patient had a D-dimer at 4.0. Therefore, the patient underwent CT angiography of the chest, which ruled out pulmonary embolus. However, it revealed a right paracentral mass lesion adjacent to the mid thoracic spine of unknown etiology. The patient's troponin I level was 0. The patient was admitted to telemetry for further evaluation and management. Cardiology consultation was made at the request of Dr. Montoya for management of chest pain. Review of old records shows 2D echocardiography done on April 12, 2019, which is showing normal LV systolic function with LVEF approximately 50%, evidence of grade 1 LV diastolic dysfunction, and normal pulmonary artery pressure measuring at 28 mmHg. PAST MEDICAL HISTORY: 1. Cardiomyopathy. 2. Status post AICD pacemaker implantation. 3. Diverticulosis. 4. History of congestive heart failure. 5. Hypertension. 6. Asthma/COPD. 7. CVA with right hemiparesis. 8. Seizure disorder. REVIEW OF SYSTEMS: HEENT: Denies any headache, diplopia, or blurred vision. CONSTITUTIONAL: Denies any fever, chills, weakness, or night sweats. CARDIOVASCULAR: Chest pain, mostly in the right flank. Positive for shortness of breath, but no PND, orthopnea, leg swelling. PULMONARY: Positive for shortness of breath and cough, but no hemoptysis. GASTROINTESTINAL: Right flank pain with radiation to the right lower leg and right suprapubic area. Positive nausea, but no vomiting. No diarrhea, constipation, or GI bleed. GENITOURINARY: Positive for right flank pain with radiation to the right lower leg and right suprapubic area. No hematuria or dysuria. Denies any urinary frequency or urgency. NEUROLOGIC: The patient has right-sided weakness, but no altered speech. PHYSICAL EXAMINATION: VITAL SIGNS: Blood pressure was 125/76, pulse of 69, respirations 18, O2 saturation 97% on room air, temperature 96.9. GENERAL: The patient is a very unfortunate 59-year-old female, in no apparent respiratory distress. Alert and oriented . HEENT: Atraumatic, normocephalic. . Pupils are equal, round, and reactive to light and accommodation. Extraocular muscles are intact. NECK: JVP is less than 5 cm. No carotid bruit. Carotid upstrokes 2+ bilaterally. CARDIOVASCULAR: Normal S1, S2. Regular rate and rhythm. No murmurs, gallops, or rubs. PMI is at fourth intercostal space in the midclavicular line. Left AICD pacer pocket in place. LUNGS: Clear to auscultation bilaterally. ABDOMEN: Soft, nontender, nondistended. No hepatosplenomegaly. Positive bowel sounds. EXTREMITIES: No evidence of edema, clubbing, or cyanosis. LABORATORY FINDINGS: WBC 5.1, hemoglobin 13.8, hematocrit 42.5%, platelet count is 200. D-dimer is 4.0. Sodium is 138, potassium 3.8, chloride is 101, bicarbonate is 26, BUN of 15, creatinine 1.1, glucose is 103, calcium is 9.9. Troponin I is 0. Chest x-ray showed mild cardiomegaly with presence of AICD shocking lead as well as right atrial lead. ASSESSMENT/PLAN: This is a very unfortunate 59-year-old female seen in cardiology consultation. 1. Chronic systolic congestive heart failure. We will obtain 2D echocardiography to address LV systolic function and hemodynamic data. In the meantime, we will continue with carvedilol, furosemide. I would place a hold on amlodipine as a negative inotropic agent. 2. Noncardiac chest pain. The pain is mostly in the right flank. A 12-lead electrocardiogram, however, shows nonspecific T-wave changes, which may be suggestive of ischemia. 3. Acute myocardial infarction is ruled out. We may consider a stress test. 4. Status post AICD implantation. 5. History of CVA with right hemiparesis. Continue aspirin and atorvastatin. 6. History of COPD/asthma. 7. History of hypertension. Currently, blood pressure is well controlled with carvedilol and furosemide. I would like to thank Dr. Montoya for the courtesy of this consultation. Patrick Ivory M.D. DR: YAQUEILN JOB#: [id number] CC:
[2020-06-25] VITALS: BP 99/62
[2020-06-25] MEDS: Morphine Sulfate 2mg/ml Inj(IV/IM USE ONLY) IVP PRN ×6 (00:36→20:08)
[2020-06-25] MEDS: HYDROcodone/Acetamin 10/325 tab ORAL PRN (01:00)
--- NOTE | 2020-06-25 01:29 | History and Physical Report ---
DATE OF ADMISSION: 06/23/2020 HISTORY OF PRESENT ILLNESS: The patient comes in with subjective fever, chest pain, and shortness of breath, progressive back pain and weakness. CTA of the chest showed possible paraspinous soft tissue lesion. No PE. Esophagus thickening was also seen. EKG showed diffuse T-wave inversion. First troponin and COVID were negative. The patient has also been admitted for UTI. The patient has a history of diverticulosis. The patient also has a history of chronic pain syndrome for which she takes [place]. The patient also has a history of cardiomyopathy and ICD and complained of her right-sided flank pain radiating to the side and also has right suprapubic area tenderness. Denies vomiting. Does have some nausea. PAST MEDICAL HISTORY: Significant for arrhythmia, CHF, cardiomyopathy, history of asthma, history of COPD, history of diverticulosis, remote history of seizures, and history of CVA. PAST SURGICAL HISTORY: Defibrillator. ALLERGIES: No known allergies. FAMILY HISTORY: Noncontributory. SOCIAL HISTORY: Denies history of smoking. Does have history of alcohol abuse. Denies history of drug abuse. MEDICATIONS: Coreg, amlodipine, [place], Lasix, and lovastatin. REVIEW OF SYSTEMS: HEENT: Denies headaches. RESPIRATORY: Reports shortness of breath. Denies cough. CARDIOVASCULAR: Does have some chest pain that is generalized pain and back pain and flank pain for a couple of days, getting worse. GASTROINTESTINAL: Denies nausea, vomiting, or diarrhea. She does have some abdominal/flank pain. CENTRAL NERVOUS SYSTEM: Denies change in speech pattern. PHYSICAL EXAMINATION: VITAL SIGNS: Temperature is 97.4, pulse is 60, blood pressure is 122/71. HEENT: PERRLA. NECK: Supple. No lymphadenopathy. CHEST: Clear to auscultation. CARDIOVASCULAR: Regular rate and rhythm. No murmurs or extra sounds. GASTROINTESTINAL: Soft, nontender, nondistended. No organomegaly. EXTREMITIES: No edema. Moves all four extremities. Sensory intact to light touch. Reflexes in both sides. LABORATORY STUDIES: WBC of 5.1, hemoglobin of 13.8, and platelets 200. Sodium 138, potassium of 3.8, BUN of 15, creatinine 1.1, and glucose of 103. Troponin 0.000. ASSESSMENT AND PLAN: Atypical chest pain, chronic pain syndrome, flank pain, UTI, and also shortness of breath. Negative PE. Soft tissue lesion. thickness. Diffuse T-wave inversion on the EKG. Troponins negative. COVID negative. I have consulted Dr. Rico, Dr. Guzman, Dr. Josep Henderson, Dr. Armstrong, and Dr. Ivory to help with the management of the above-mentioned abnormalities and symptoms and abnormal laboratory findings. Antibiotics if any per Infectious Diseases. Мария Montoya M.D. DR: Ramiro JOB#: [id number] CC:
[2020-06-25 04:00] VITALS: BP 117/62
--- NOTE | 2020-06-25 04:46 | NUR ---
NURSES NOTE: Received pt as transfer from [facility] at apprx 2147. Pt is A/OX4, denies pain at time of transfer. Pt received Morphine 2mg IV push for back pain before being transferred up to [facility] and pt states the medication was effective. No outward s/s of distress noted. Breathing pattern is even and unlabored on RA. R side, EJ, is patent and flushes without incident. Hep locked. BP has been lower than baseline for 0000 and 0200 reading; however, 0400 VS check was done, and all VS WNL. Will endorse to oncoming RN to monitor BP in regards to pain medication administration. Pt will continue to be monitored.
--- NOTE | 2020-06-25 07:43 | NUR ---
NURSE HAND-OFF: Important Events on Shift:[Lower BP than baseline. 0400 VS WNL. ] Patient Status: [STABLE] Diet: [CARDIAC LOW NA] Pending Orders: [NONE] Pending Results/Labs:[NONE] Pending MD notification:[NONE] Latest Vital Signs: Temperature 98.2 , Pulse 60 , B/P 117 /62 , Respiratory Rate 18 , O2 SAT 94 , Room Air, O2 Flow Rate . Vital Sign Comment: [WNL at end of NOC shift] Latest Weller Fall Score: 60 Fall Risk: High Risk Safety Measures: Call light Within Reach, Bed Alarm Zone 1, Side Rails Side Rails x2, Bed position Low and Locked. Fall Precautions: Yellow Socks Report given to [RUBY MCHUGH].
--- NOTE | 2020-06-25 07:50 | NUR ---
NURSE NOTES:REPORT GIVEN BY NIGHT RN(YESENIA),PT.HAVING BREAKFAST ON ROUNDS.NO C/O PAIN.
[2020-06-25 08:00] VITALS: BP 95/64
--- NOTE | 2020-06-25 08:30 | NUR ---
NURSE NOTES: Patient is in bed awake and able to verbalize needs. Stable. C/o lower back pain, pain medication administration schedule discussed with patient. Patient instructed to use call light for assistance, verbalized understanding. All safety measures provided. Patient is in bed in locked and lowest position with call light within reach. Will continue to monitor.
[2020-06-25] MEDS: Carvedilol 25mg Tab ORAL SCH ×2 (09:00→17:31)
--- NOTE | 2020-06-25 09:46 | Consultation ---
History of Present Illness General Date patient seen: Jun 25, 2020 Chief Complaint: Present Illness Allergies: Coded Allergies: No Known Allergies (Verified , 06/23/20) Medication History Scheduled Amlodipine Besylate (Norvasc), 1 TAB ORAL DAILY, (Reported) Carvedilol (Coreg), 25 MG ORAL BID, (Reported) Clopidogrel Bisulfate* (Plavix*), 75 MG PO DAILY, (Reported) Furosemide* (Lasix*), 40 MG ORAL TWICE A DAY, (Reported) Hydroxyzine Hcl (Hydroxyzine Hcl), 25 MG PO EVERY 8 HOURS Ibuprofen* (Motrin*), 600 MG ORAL THREE TIMES A DAY Lactulose (Lactulose), 15 ML PO BID Linaclotide (Linzess), 145 MCG PO DAILY, (Reported) Lovastatin (Lovastatin), 20 MG ORAL BEDTIME, (Reported) Potassium Chloride (Potassium Chloride), 20 MEQ PO TID, (Reported) Scheduled PRN Hydrocodone Bit/Acetaminophen 10-325* (Capay 10-325*), 1 TAB ORAL Q12HR PRN for For Pain, (Reported) Hydrocodone/Acetaminophen 5-325* (Hydrocodone/Acetaminophen 5-325*), 1 TAB ORAL Q6H PRN for For Pain Ondansetron (Zofran), 4 MG ORAL Q6H PRN for Nausea & Vomiting Polyethylene Glycol 3350* (Polyethylene Glycol 3350*), 34 GM ORAL BEDTIME PRN for Constipation, (Reported) Discontinued Medications Hydrocortisone 2% Cream (Anti-Itch 2% Cream), 28 GM TP DAILY Discontinued Reason: Pt had allergic rxn Patient History Healthcare decision maker Resuscitation status Advanced Directive on File Physical Exam Last 24 Hour Vital Signs Date Time Temp Pulse Resp B/P (MAP) Pulse Ox O2 Delivery O2 Flow Rate FiO2 06/25/20 04:00 98.2 60 18 117/62 (80) 94 06/25/20 00:00 97.8 60 17 99/62 (74) 95 06/24/20 21:00 Room Air 06/24/20 20:00 97.9 60 16 95/48 (64) 98 06/24/20 18:25 60 118/68 06/24/20 16:00 60 06/24/20 16:00 97.3 60 16 118/68 (85) 97 06/24/20 12:00 97.4 61 16 122/71 (88) 99 06/24/20 12:00 60 Intake and Output 06/24/20 06/25/20 19:00 07:00 Intake Total 360 ml 1200 ml Balance 360 ml 1200 ml Intake Oral 360 ml 1200 ml # Voids 2 4 Laboratory Tests Test 06/24/20 10:45 Troponin I 0.028 ng/mL (0.000-0.056) Height (Feet): 5 Height (Inches): 1.00 Weight (Pounds): 142 Medications Current Medications Medications (Trade) Dose Ordered Sig/Apollo Route PRN Reason Start Time Stop Time Status Last Admin Dose Admin Acetaminophen/ Hydrocodone Bitart (Capay 10/325) 1 tab Q12H PRN ORAL Moderate Pain (Pain Scale 4-6) 06/24/20 14:45 07/01/20 02:44 Carvedilol (Coreg) 25 mg BID ORAL 06/24/20 09:00 07/24/20 08:59 06/24/20 18:25 Clopidogrel Bisulfate (Plavix) 75 mg DAILY ORAL 06/24/20 09:00 07/24/20 08:59 06/24/20 09:12 Furosemide (Lasix) 40 mg TWICE A DAY ORAL 06/24/20 09:00 07/24/20 08:59 06/24/20 18:26 Morphine Sulfate (Morphine Sulfate) 2 mg Q4H PRN IVP Severe Pain (Pain Scale 7-10) 06/24/20 08:45 07/01/20 08:44 06/25/20 02:20 Ondansetron HCl (Zofran) 4 mg Q6H PRN IVP Nausea & Vomiting 06/24/20 13:00 07/24/20 12:59 Pantoprazole (Protonix) 40 mg DAILY ORAL 06/24/20 14:30 07/24/20 14:29 06/24/20 14:30 Polyethylene Glycol (Miralax) 34 gm BEDTIME PRN ORAL Constipation 06/24/20 02:15 07/24/20 02:14 Potassium Chloride (K-Dur) 20 meq TID ORAL 06/24/20 09:00 09/22/20 08:59 06/24/20 18:26 Assessment/Plan Assessment/Plan: (1) Lumbar Radiculopathy (2) Lumbar DDD (3) Lumbar Spondylosis Seen dictated Dameon Silva Jun 25, 2020 09:46
[2020-06-25] MEDS: Furosemide 40mg tab ORAL SCH ×2 (09:50→17:34)
--- NOTE | 2020-06-25 10:53 | Pulmonology Progress Note ---
Subjective Interval Events: None new Constitutional: Reports: no symptoms HEENT: Repors: no symptoms Respiratory: Reports: no symptoms Gastrointestinal/Abdominal: Reports: no symptoms Allergies: Coded Allergies: No Known Allergies (Verified , 06/23/20) Objective Last 24 Hour Vital Signs Date Time Temp Pulse Resp B/P (MAP) Pulse Ox O2 Delivery O2 Flow Rate FiO2 06/25/20 09:00 Room Air 06/25/20 08:00 97.9 62 18 95/64 (74) 95 06/25/20 04:00 98.2 60 18 117/62 (80) 94 06/25/20 00:00 97.8 60 17 99/62 (74) 95 06/24/20 21:00 Room Air 06/24/20 20:00 97.9 60 16 95/48 (64) 98 06/24/20 18:25 60 118/68 06/24/20 16:00 60 06/24/20 16:00 97.3 60 16 118/68 (85) 97 06/24/20 12:00 97.4 61 16 122/71 (88) 99 06/24/20 12:00 60 Intake and Output 06/24/20 06/25/20 19:00 07:00 Intake Total 360 ml 1200 ml Balance 360 ml 1200 ml Intake Oral 360 ml 1200 ml # Voids 2 4 General Appearance: WD/WN HEENT: normocephalic Respiratory: chest wall non-tender, lungs clear Cardiovascular: normal peripheral pulses Abdomen: normal bowel sounds Microbiology Date/Time Source Procedure Growth Status 06/23/20 18:23 Nasopharynx SARS-CoV-2 RdRp Gene Assay - Final Complete 06/23/20 20:18 Urine,Clean Catch Urine Culture - Preliminary NO GROWTH AFTER 24 HOURS Resulted Current Medications Medications (Trade) Dose Ordered Sig/Apollo Route PRN Reason Start Time Stop Time Status Last Admin Dose Admin Acetaminophen/ Hydrocodone Bitart ([place] 10/325) 1 tab Q12H PRN ORAL Moderate Pain (Pain Scale 4-6) 06/24/20 14:45 07/01/20 02:44 Carvedilol (Coreg) 25 mg BID ORAL 06/24/20 09:00 07/24/20 08:59 06/24/20 18:25 Clopidogrel Bisulfate (Plavix) 75 mg DAILY ORAL 06/24/20 09:00 07/24/20 08:59 06/25/20 09:50 Furosemide (Lasix) 40 mg TWICE A DAY ORAL 06/24/20 09:00 07/24/20 08:59 06/25/20 09:50 Morphine Sulfate (Morphine Sulfate) 2 mg Q4H PRN IVP Severe Pain (Pain Scale 7-10) 06/24/20 08:45 07/01/20 08:44 06/25/20 09:52 Ondansetron HCl (Zofran) 4 mg Q6H PRN IVP Nausea & Vomiting 06/24/20 13:00 07/24/20 12:59 Pantoprazole (Protonix) 40 mg DAILY ORAL 06/24/20 14:30 07/24/20 14:29 06/25/20 09:00 Polyethylene Glycol (Miralax) 34 gm BEDTIME PRN ORAL Constipation 06/24/20 02:15 07/24/20 02:14 Potassium Chloride (K-Dur) 20 meq TID ORAL 06/24/20 09:00 09/22/20 08:59 06/25/20 09:51 Assessment/Plan Assessment/Plan IMPRESSION: 1. Chest heaviness. 2. Cardiomyopathy. 3. ICD. 4. Asthma. 5. Previous CVA. 6. Right mid thoracic spine lesion/mass. DISCUSSION: The right mid thoracic mass/lesion may be incidental. I do not suspect this is causing any symptoms. This would be best evaluated by MRI. However, she has an ICD in place. Therefore, an MRI is not advisable. I will recommend outpatient evaluation by primary care physician. No pulmonary active issues noted except discussed above. I will follow as needed. Ina Shah Omar Syed MD Jun 25, 2020 10:53
[2020-06-25 12:00] VITALS: BP 104/59
[2020-06-25 16:00] VITALS: BP 119/72
--- NOTE | 2020-06-25 16:00 | Consultation ---
DATE OF CONSULTATION: 06/25/2020 PAIN MANAGEMENT CONSULTATION CONSULTING PHYSICIAN: Malcolm Rico MD. REFERRING PHYSICIAN: Мария Montoya MD. PHYSICIAN PRODUCT DEVELOPMENT ENGINEER: JEREMÍAS Carr. CHIEF COMPLAINT: Back pain. HISTORY OF PRESENT ILLNESS: This is a 59-year-old female is being seen on the Med/Surg floor of [facility] for initial pain management consultation. The patient was admitted under the care of Dr. Montoya due to complaints of back pain for many years; however, it has worsened over the past two days. It is a constant chronic pain, rating at 10/10. Described pain as a shooting pain down into the right lower extremity, increasing with movement, and has been reduced with Kipton which she takes at home at times however at this time the pain has not been tolerated and was admitted to the hospital, also was being checked down for chest pain complaints as well. We were consulted so that the patient would have adequate pain control while here in the hospital. She was started on Kipton 10/325 one tablet every 12 hours as needed as well as morphine 2 mg IV every four hours as needed. She is comfortable at this time. REVIEW OF SYSTEMS: Denies rash, fever, chills, sweating, dizziness, drowsiness, blurred vision, sore throat, or change in weight. No nausea, vomiting, diarrhea, or blood in the stool or urine. No dysuria. PHYSICAL EXAMINATION: GENERAL: Alert, awake, and oriented. VITAL SIGNS: Blood pressure 117/62, heart rate 60, oxygen saturation 98%, respiratory rate 18, temperature is 98.2 degrees Fahrenheit. HEENT: PERRLA. LUNGS: Decreased breath sounds bilaterally. HEART: S1 and S2 regular. ABDOMEN: Soft and nontender. BACK: Range of motion is decreased in flexion and extension. EXTREMITIES: Upper and lower extremity range of motion is decreased due to the patient's condition. No cyanosis. No clubbing. Sensory is intact. Reflexes are not obtainable. No adenopathy. ASSESSMENT AND PLAN: The patient is a 59-year-old female with lumbar degenerative disease, lumbar spondylosis, lumbar radiculopathy. The patient will be continued on morphine and Kipton as needed. We will order an a CT scan of lumbar spine with contrast to rule out further pathology in lower back due to having ICD unable to do the MRI. The patient was discussed with Dr. Rico and Dr. Rico concurred. We will follow the patient. Thank you very much for the courtesy of this consultation. Malcolm Rico M.D. JEREMÍAS Carr DR: [place] JOB#: [id number] CC:
--- NOTE | 2020-06-25 16:33 | Diagnostic Imaging Report ---
CT L SPINE HISTORY: Pain TECHNIQUE: One or more of the following dose reduction techniques were used: automated exposure control, adjustment of the mA and/or kV according to patient size, use of iterative reconstruction technique. One or more of the following dose reduction techniques were used: automated exposure control, adjustment of the mA and/or kV according to patient size, use of iterative reconstruction technique. Total Exam volume computed tomography dose index (CTDIvol) = 8.7 mGy and Dose Length Product (DLP) = 319.6mGY-c COMPARISON: CT abdomen and pelvis June 23, 2020 TECHNIQUE: Multiple, contiguous axial cuts of the lumbar spine are obtained. Sagittal and coronal reformats are available. No IV contrast given. FINDINGS: No fracture or subluxation is identified. The vertebral body heights and disc spaces are preserved. Bone mineralization is within normal limits. No prevertebral soft tissue thickening. Facet hypertrophy at L3-4, L4-5 and L5-S1. Surgical clips demonstrated. Mild concentric disc bulge at L3-4, L4-5 and L5-S1 with mild canal narrowing with mild bilateral neural foraminal narrowing. Most significant disease at L4-5. Sclerosis of the sacroiliac joints. Nonobstructing calculus within the left kidney. IMPRESSION: Degenerative changes without fracture or subluxation.
--- NOTE | 2020-06-25 16:52 | General Progress Note ---
Assessment/Plan Problem List: (1) Chronic pain syndrome ICD Codes: G89.4 - Chronic pain syndrome SNOMED: 941655147 (2) Episode of generalized weakness ICD Codes: R53.1 - Weakness SNOMED: 25166973 (3) Pain in limb ICD Codes: M79.609 - Pain in limb SNOMED: 05140103 (4) Abdominal pain ICD Codes: R10.9 - Unspecified abdominal pain SNOMED: 89669385 (5) CHF (congestive heart failure) ICD Codes: I50.9 - Heart failure, unspecified SNOMED: 55429895 (6) Cardiomyopathy ICD Codes: I42.9 - Cardiomyopathy, unspecified SNOMED: 34240342 Status: progressing Assessment/Plan: abdominal pain afebrile chf cardiomyopathy pain improving Subjective ROS Limited/Unobtainable: Yes Allergies: Coded Allergies: No Known Allergies (Verified , 06/23/20) Objective Last 24 Hour Vital Signs Date Time Temp Pulse Resp B/P (MAP) Pulse Ox O2 Delivery O2 Flow Rate FiO2 06/25/20 16:00 97.9 60 16 119/72 (88) 94 06/25/20 12:00 98.0 60 18 104/59 (74) 97 06/25/20 09:00 Room Air 06/25/20 08:00 97.9 62 18 95/64 (74) 95 06/25/20 04:00 98.2 60 18 117/62 (80) 94 06/25/20 00:00 97.8 60 17 99/62 (74) 95 06/24/20 21:00 Room Air 06/24/20 20:00 97.9 60 16 95/48 (64) 98 06/24/20 18:25 60 118/68 Intake and Output 06/24/20 06/25/20 19:00 07:00 Intake Total 360 ml 1200 ml Balance 360 ml 1200 ml Intake Oral 360 ml 1200 ml # Voids 2 4 Height (Feet): 5 Height (Inches): 1.00 Weight (Pounds): 142 Мария Montoya MD Jun 25, 2020 16:52
--- NOTE | 2020-06-25 19:00 | NUR ---
NURSE NOTES: Received report from RUBY Schuster. AAO x 4, resting in bed, on room air. Ambulatory with cane. IV site intact and patent. Able to make needs known. No acute distress noted at this time. Bed locked, lowest position, alarm on, side rails up, call light within reach. Will continue to monitor.
--- NOTE | 2020-06-25 19:20 | NUR ---
NURSE HAND-OFF: Important Events on Shift:pain management Patient Status: stable Diet: cardiac Pending Orders: n/a Pending Results/Labs:n/a Pending MD notification:n/a Latest Vital Signs: Temperature 97.9 , Pulse 60 , B/P 105 /52 , Respiratory Rate 16 , O2 SAT 94 , Room Air, O2 Flow Rate . Vital Sign Comment: n/a Latest Weller Fall Score: 60 Fall Risk: High Risk Safety Measures: Call light Within Reach, Side Rails Side Rails x2, Bed position Low and Locked. Fall Precautions: Yellow Socks Report given to Oanh BELTRAN.
[2020-06-25 20:00] VITALS: BP_SYST 103; BP_SYST 107; BP_DIAS 55; BP_DIAS 63
[2020-06-26] VITALS: BP 105/55
[2020-06-26] MEDS: Morphine Sulfate 2mg/ml Inj(IV/IM USE ONLY) IVP PRN (03:30)
[2020-06-26 04:00] VITALS: BP 106/59
--- NOTE | 2020-06-26 06:20 | NUR ---
NURSE HAND-OFF: Important Events on Shift:pain Patient Status: stable Diet: cardiac,low sodium Pending Orders: N Pending Results/Labs:N Pending MD notification:N Latest Vital Signs: Temperature 97.8 , Pulse 61 , B/P 106 /59 , Respiratory Rate 16 , O2 SAT 100 , Room Air, O2 Flow Rate . Vital Sign Comment: N Latest Weller Fall Score: 60 Fall Risk: High Risk Safety Measures: Call light Within Reach, Bed Alarm Zone 1, Side Rails Side Rails x2, Bed position Low and Locked. Fall Precautions: Yellow Socks Addendum: 06/26/20 at 0730 by MICHAEL DAVIS RN RN HAND-OFF: Report given to CHATO Boyer.
--- NOTE | 2020-06-26 07:35 | NUR ---
NURSE NOTES: RECEIVED PATIENT A/A/OX4. HAD BREAKFAST AND TOLERATED WELL. AMBULATES WITH CANE. NO ACUTE CARDIO-RESP DISTRESS NOTED. DENIES OF PAIN/DISCOMFORT NOTED. ABLE TO MAKE NEEDS KNOWN. BED IS IN THE LOWEST POSITION. SIDERAILS ARE UPX3. CALL LIGHT IS WITHIN REACH. BRAKES AND LOCK @ ALL TIMES. SKIN IS INTACT. WILL CONT TO MONITOR.
[2020-06-26 08:00] VITALS: BP 107/57
[2020-06-26] MEDS: Carvedilol 25mg Tab ORAL SCH (08:12)
[2020-06-26] MEDS: Furosemide 40mg tab ORAL SCH (08:13)
--- NOTE | 2020-06-26 08:30 | General Progress Note ---
Assessment/Plan Assessment/Plan: (1) Lumbar Radiculopathy (2) Lumbar DDD (3) Lumbar Spondylosis Patient to be continued on Morphine and [place]. D/w Dr. Rico and he concurred. Subjective Date patient seen: Jun 26, 2020 Time patient seen: 08:25 - am Allergies: Coded Allergies: No Known Allergies (Verified , 06/23/20) Subjective REVIEW OF SYSTEMS: Denies rash, fever, chills, sweating, dizziness, drowsiness, blurred vision, sore throat, or change in weight. No nausea, vomiting, diarrhea, or blood in the stool or urine. No dysuria. SUBJECTIVE: In bed no signs of pain or distress. CT scan of L spine reviewed with patient. No new complaints at this time. Was advised to continue PT she seems to understand. Objective Last 24 Hour Vital Signs Date Time Temp Pulse Resp B/P (MAP) Pulse Ox O2 Delivery O2 Flow Rate FiO2 06/26/20 08:12 66 107/57 06/26/20 08:00 98.4 66 18 107/57 (74) 100 06/26/20 04:00 97.8 61 16 106/59 (75) 100 06/26/20 00:00 98.2 65 18 105/55 (72) 95 06/25/20 20:23 Room Air 06/25/20 20:00 97.5 61 18 103/55 (71) 94 06/25/20 17:31 60 105/52 06/25/20 16:00 97.9 60 16 119/72 (88) 94 06/25/20 12:00 98.0 60 18 104/59 (74) 97 06/25/20 09:00 Room Air Intake and Output 06/25/20 06/26/20 19:00 07:00 # Voids 2 Height (Feet): 5 Height (Inches): 1.00 Weight (Pounds): 142 Objective GENERAL: Alert, awake, and oriented. LUNGS: Decreased breath sounds bilaterally. HEART: S1 and S2 regular. ABDOMEN: Soft and nontender. EXTREMITIES: No cyanosis. No clubbing. NEURO: No changes. Procedure: CT L Spine no Contrast CT L SPINE HISTORY: Pain TECHNIQUE: One or more of the following dose reduction techniques were used: automated exposure control, adjustment of the mA and/or kV according to patient size, use of iterative reconstruction technique. One or more of the following dose reduction techniques were used: automated exposure control, adjustment of the mA and/or kV according to patient size, use of iterative reconstruction technique. Total Exam volume computed tomography dose index (CTDIvol) = 8.7 mGy and Dose Length Product (DLP) = 319.6mGY-c COMPARISON: CT abdomen and pelvis June 23, 2020 TECHNIQUE: Multiple, contiguous axial cuts of the lumbar spine are obtained. Sagittal and coronal reformats are available. No IV contrast given. FINDINGS: No fracture or subluxation is identified. The vertebral body heights and disc spaces are preserved. Bone mineralization is within normal limits. No prevertebral soft tissue thickening. Facet hypertrophy at L3-4, L4-5 and L5-S1. Surgical clips demonstrated. Mild concentric disc bulge at L3-4, L4-5 and L5-S1 with mild canal narrowing with mild bilateral neural foraminal narrowing. Most significant disease at L4-5. Sclerosis of the sacroiliac joints. Nonobstructing calculus within the left kidney. IMPRESSION: Degenerative changes without fracture or subluxation. Dameon Silva Jun 26, 2020 08:30
--- NOTE | 2020-06-26 09:42 | Pulmonology Progress Note ---
Subjective ROS Limited/Unobtainable: Yes Interval Events: None new Constitutional: Reports: no symptoms HEENT: Repors: no symptoms Respiratory: Reports: no symptoms Gastrointestinal/Abdominal: Reports: no symptoms Allergies: Coded Allergies: No Known Allergies (Verified , 06/23/20) Objective Last 24 Hour Vital Signs Date Time Temp Pulse Resp B/P (MAP) Pulse Ox O2 Delivery O2 Flow Rate FiO2 06/26/20 08:12 66 107/57 06/26/20 08:00 98.4 66 18 107/57 (74) 100 06/26/20 04:00 97.8 61 16 106/59 (75) 100 06/26/20 00:00 98.2 65 18 105/55 (72) 95 06/25/20 20:23 Room Air 06/25/20 20:00 97.5 61 18 103/55 (71) 94 06/25/20 17:31 60 105/52 06/25/20 16:00 97.9 60 16 119/72 (88) 94 06/25/20 12:00 98.0 60 18 104/59 (74) 97 Intake and Output 06/25/20 06/26/20 19:00 07:00 # Voids 2 General Appearance: WD/WN HEENT: normocephalic Respiratory: chest wall non-tender, lungs clear Cardiovascular: normal peripheral pulses Abdomen: normal bowel sounds Microbiology Date/Time Source Procedure Growth Status 06/23/20 18:23 Nasopharynx SARS-CoV-2 RdRp Gene Assay - Final Complete 06/23/20 20:18 Urine,Clean Catch Urine Culture - Final Mixed Gram Positive Organism Complete Current Medications Medications (Trade) Dose Ordered Sig/Apollo Route PRN Reason Start Time Stop Time Status Last Admin Dose Admin Acetaminophen/ Hydrocodone Bitart ([place]ford 10/325) 1 tab Q12H PRN ORAL Moderate Pain (Pain Scale 4-6) 06/24/20 14:45 07/01/20 02:44 Carvedilol (Coreg) 25 mg BID ORAL 06/24/20 09:00 07/24/20 08:59 06/24/20 18:25 Clopidogrel Bisulfate (Plavix) 75 mg DAILY ORAL 06/24/20 09:00 07/24/20 08:59 06/26/20 08:11 Furosemide (Lasix) 40 mg TWICE A DAY ORAL 06/24/20 09:00 07/24/20 08:59 06/25/20 17:34 Morphine Sulfate (Morphine Sulfate) 2 mg Q4H PRN IVP Severe Pain (Pain Scale 7-10) 06/24/20 08:45 07/01/20 08:44 06/26/20 03:30 Ondansetron HCl (Zofran) 4 mg Q6H PRN IVP Nausea & Vomiting 06/24/20 13:00 07/24/20 12:59 06/25/20 14:36 Pantoprazole (Protonix) 40 mg DAILY ORAL 06/24/20 14:30 07/24/20 14:29 06/26/20 08:11 Polyethylene Glycol (Miralax) 34 gm BEDTIME PRN ORAL Constipation 06/24/20 02:15 07/24/20 02:14 06/26/20 06:12 Potassium Chloride (K-Dur) 20 meq TID ORAL 06/24/20 09:00 09/22/20 08:59 06/26/20 08:11 Assessment/Plan Assessment/Plan IMPRESSION: 1. Chest heaviness. 2. Cardiomyopathy. 3. ICD. 4. Asthma. 5. Previous CVA. 6. Right mid thoracic spine lesion/mass. DISCUSSION: The right mid thoracic mass/lesion may be incidental. I do not suspect this is causing any symptoms. This would be best evaluated by MRI. However, she has an ICD in place. Therefore, an MRI is not advisable. I will recommend outpatient evaluation by primary care physician. No pulmonary active issues noted except discussed above. I will follow as needed. Sam Guzman M.D. Sam Guzman MD Jun 26, 2020 09:41
[2020-06-26] MEDS: HYDROcodone/Acetamin 10/325 tab ORAL PRN (10:03)
--- NOTE | 2020-06-26 10:43 | NUR ---
NURSE NOTES: SITTING ON A CHAIR WITHOUT ANY DISTRESS OR DISCOMFORT. MEDICATED WITH NORCO FOR BACK PAIN. WILL CONT TO MONITOR.
[2020-06-26 11:42] VITALS: BP 103/59
--- NOTE | 2020-06-26 13:41 | NUR ---
NURSE NOTES: DISCHARGE HOME WITH INSTRUCTIONS. VERBALIZED UNDERSTANDING. REMOVED IV HEPLOCK. PERSONAL BELONGINGS NOTED. VERIFIED HOME ADDRESS. TONY, FRIEND PROVIDED TRANSPORTATION TO PATIENT. IN STABLE CONDITION. NO C/O PAIN/DISCOMFORT NOTED.
[2020-06-26] MEDS ORDERED: D5NS 1000ml IV ONE (15:13)
--- NOTE | 2020-06-26 17:08 | NUR ---
CASE MANAGEMENT: INITIAL REVIEW 59YR OLD FEMALE BIBA FROM HOME CC:BACK PAIN SI:CHEST PAIN . ESOPHAGITIS 96.8 69 18 95/48 97% ON RA TROP NEGATIVE ALKP 136 IS:IVF NS BOLUS X1 TORADOL IV X1 IV ZOFRAN X1 CTA CHEST - No central or peripheral pulmonary emboli detected. 2. Right paracentral mass lesion adjacent to the mid thoracic spine of uncertain etiology. Magnetic resonance imaging of the thoracic spine with gadolinium administration is advised to further assessment of this finding. CT Abdomen Pelvis w/Contrast- Small hiatal hernia and probable distal esophagitis. 2. Fatty infiltration of the liver. 3. Status post cholecystectomy. 4. No renal calculus or hydronephrosis. 5. Medical hernia containing mesenteric fat only. 6. Moderate quantity of stool throughout the colon. 7. No evidence of bowel obstruction. 8. Status post hysterectomy. 9. The appendix is unremarkable. XR Chest, 1 View- Hypoaeration. 2. Mild cardiomegaly. 3. No pleural effusion. \: 3E MED SURG UNIT DCP: HOME WHEN STABLE PLAN: EKG 2DECHO IV HYDRATION CONSULT PAIN MANGMT CONSULT CARDIO
--- NOTE | 2020-06-27 14:54 | Discharge Summary ---
Discharge Summary Discharge Summary _ DATE OF ADMISSION: 06/23/2020 DATE OF DISCHARGE: 06/26/2020 DISCHARGED BY: Dr. Montoya REASON FOR ADMISSION: 59 years old female with past medical history of cardiomyopathy, AICD, COPD/ asthma, presented complaining of right-sided flank pain with radiation to right lower leg and right suprapubic area. Pain was reported as 10 out of 10 on a scale 1-10. She denied urinary frequency and urgency. Patient complained of nausea , but denied vomiting .diarrhea and constipation. No fever or chills. Patient reported 2 days of dry cough, no congestion. Minimal shortness of breath. No chest pain . upon evaluation EKG revealed sinus rhythm , no acute ischemic changes. Troponin negative. Chest x-ray revealed no acute cardiopulmonary pathology. Mild cardiomegaly noted. CT scan of the abdomen and pelvis demonstrated small hiatal hernia, probable distal esophagitis, fatty infiltration of the liver, no renal calculi or hydronephrosis, status post cholecystectomy, no evidence of bowel obstruction, moderate amount of stool throughout the colon, status post hysterectomy, hernia containing mesenteric fat only. CTA of the chest revealed no evidence of pulmonary emboli. Right paracentral mass lesion adjacent to the mid thoracic spine of uncertain etiology. Laboratory work-up revealed no leukocytosis, stable hemoglobin and hematocrit. Stable electrolytes and renal parameters. Urinalysis revealed pyuria, +2 leukocyte esterase and moderate bacteria. D-dimer 4.06. Rapid COVID-19 was negative. Patient subsequently admitted for further management CONSULTANTS: sub acute care nurse Dr. Ivory pulmonary GI specialist Dr. Macario pain specialist Dr. Rico HOSPITAL COURSE: Patient admitted. EKG showed nonspecific T wave changes which may be suggestive of ischemia . Serial troponin were negative. Acute myocardial infarction was ruled out. Fire Boss recommended to consider stress test as outpatient. Echocardiogram revealed ejection fraction of 60%. Moderate to severe tricuspid regurgitation. Right ventricular systolic pressure of 44 consistent with a mild pulmonary hypertension. Guideline directed medical therapy for congestive heart failure provided. Amlodipine was on hold as a negative inotropic agent. Chest pain was noncardiac and predominantly located in the right flank. Aspirin and statin continued due to history of CVA. Blood pressure was controlled with beta-silvestre and Lasix . Volumes were closely monitored. Supplemental oxygen provided and titrated to keep pulse oximetry above 92%. Pulmonary toilet was on board as needed, Bindery Machine Operator did not suspected that horacic mass/lesion could cause any symptoms . Since patient had ICD in the place , unable to do MRI. Bindery Machine Operator recommended outpatient evaluation by primary care provided. Urine culture revealed mixed gram-positive organisms. GI specialist seen and evaluated patient. Hiatal hernia was seen on previous endoscopy as well. Patient was placed on a proton pump inhibitor . Patient was recommended endoscopy versus upper GI series , which can be done as outpatient if she agrees. Reflux precaution continued. Pain management was addressed as per pain specialist recommendation. Patient clinically stabilized and was ready for discharge home. FINAL DIAGNOSES: Right mid thoracic spine lesion/mass Chronic systolic congestive heart failure Noncardiac chest pain Status post AICD implantation History of CVA with right hemiparesis COPD/asthma Hypertension Hiatal hernia Lumbar DDD Lumbar spondylosis Lumbar radiculopathy Chronic pain syndrome DISCHARGE MEDICATIONS: See Medication Reconciliation list. DISCHARGE INSTRUCTIONS: Patient was discharged home. Follow-up is a primary care provider in 1 week. Recommended outpatient evaluation by primary care provider for thoracic mass/ lesion. I have been assigned to dictate discharge summary for this account. I was not involved in the patient's management. Jennifer Peralta NP Jun 27, 2020 14:54
== END 2020-06-26 15:14 | disposition home or self-care (01) | DRG 92 ==
LOC: EMR 18:31 → 2E 22:55 → EDBEDREQ 23:25 → 3E 06-24 21:10
DX: G89.4 Chronic pain syndrome (principal); I42.9 Cardiomyopathy, unspecified; I50.22 Chronic systolic (congestive) heart failure; N39.0 Urinary tract infection, site not specified; I69.351 Hemiplegia and hemiparesis following cerebral infarction affecting right dominant side; R07.89 Other chest pain; M79.604 Pain in right leg; R10.9 Unspecified abdominal pain; I11.0 Hypertensive heart disease with heart failure; M51.16 Intervertebral disc disorders with radiculopathy, lumbar region; K59.00 Constipation, unspecified; M48.8X4 Other specified spondylopathies, thoracic region; Z95.810 Presence of automatic (implantable) cardiac defibrillator; J44.9 Chronic obstructive pulmonary disease, unspecified; K44.9 Diaphragmatic hernia without obstruction or gangrene; M47.896 Other spondylosis, lumbar region; K57.90 Diverticulosis of intestine, part unspecified, without perforation or abscess without bleeding; I36.1 Nonrheumatic tricuspid (valve) insufficiency
CPT/HCPCS: 36415; 71045; 71275; 72131; 74177; 80053; 81003; 83690; 84484; 85025; 85379; 85610; 85730; 87086; 93005; 93306; 96361; 96365; 96375; 96376; 99285; J2405; J7030; J8499; U0002

== ENCOUNTER 2020-07-22 10:26 | Emergency (ER) | payer MEDICARE, OTHER ==
[~2020-07-22] VITALS: Ht 154.9 cm; Wt 62.6 kg
[~2020-07-22 10:26] MED LIST changes: +IBUPROFEN600 M1 ORAL; +LACTULOSE10 GM/153 PO; +ZOFRAN4 M1 ORAL
[2020-07-22 10:30] VITALS: BP 124/61
--- NOTE | 2020-07-22 10:30 | NUR ---
ED Nurse Note: pt walked into ED using cane from home, pt c/o right shoulder pain 06/05 s/p fall on 07/21/20, pt denies hitting head, denies NULL n/v, blurry vision.
--- NOTE | 2020-07-22 10:42 | Emergency Room Report ---
History of Present Illness General Chief Complaint: Multiple Trauma/Fall Source: Patient Present Illness HPI Disclaimer: Please note that this report is being documented using [employer] technology. This can lead to erroneous entry secondary to incorrect interpretation by the dictating instrument. HPI: 59-year-old female presents for evaluation of right arm and ankle pain after a fall occurring yesterday. Patient missed a step falling backwards onto her right side. Denies head injury or loss conscious. Believes she impacted on the right ankle and over the right shoulder. Difficulty fully abducting the right shoulder secondary to pain as well as flexion extension at the ankle. Notes mild swelling in the ankle. Denies numbness or tingling or weakness. Reports mild pain in the elbow and hand but no limitation to range of motion in those regions. Took Austin prior to arrival which he takes for chronic leg pain. PMH: Reviewed PSH: Reviewed Allergies: Reviewed Social Hx: Reviewed Allergies: Coded Allergies: No Known Allergies (Verified , 06/23/20) COVID-19 Screening Contact w/high risk pt: No Experienced COVID-19 symptoms?: No COVID-19 Testing performed DICE MANAGER: No Patient History Last Menstrual Period: na Nursing Documentation-PMH Past Medical History: No History, Except For Hx Cardiac Problems: Yes - Defibilator on L chest, Cardiomyopathy, CHF Hx Hypertension: Yes Hx Pacemaker: Yes - 2005 Hx Asthma: Yes Hx COPD: Yes Hx Cancer: No Hx Gastrointestinal Problems: Yes - DIVERTICULITS Hx Neurological Problems: Yes Hx Cerebrovascular Accident: Yes Hx Seizures: Yes - 30 years ago Hx Weakness: Yes - right-sided weakness Review of Systems All Other Systems: negative except mentioned in HPI Physical Exam Vital Signs Date Time Temp Pulse Resp B/P (MAP) Pulse Ox O2 Delivery O2 Flow Rate FiO2 07/22/20 10:28 97.9 88 17 128/60 (82) 99 Room Air General: Awake and alert, no acute distress HEENT: NC/AT. EOMI. Resp: Normal work of breathing Skin: Intact. No abrasions, laceration or rash over the exposed skin MSK: Normal tone and bulk. Moving all extremities. No obvious deformity. Patient has limited abduction going to about 45 degrees prior to pain inhibiting further abduction. Able to internally externally rotate as well as flex and extend to some degree. No obvious deformity. There is some anterior bony tenderness. Full range of motion at the elbow, wrist and hand on the right side. No obvious deformity or edema. No skin breakdown or other injury. There is tenderness palpation over the posterior aspect of the right lateral malleolus. No palpable deformity. Limited flexion extension and mild overlying edema. No midfoot tenderness. Neuro: Awake and alert. Mentating appropriately Medical Decision Making Diagnostic Impression: Primary Impression: Ankle sprain Additional Impression: Contusion, shoulder /upper arm ER Course 59-year-old female presents for evaluation of right ankle and right shoulder pain after slip and fall. Awake alert no evidence of any cranial injury. X- rays were obtained to evaluate for bony fracture or dislocation. No fracture or dislocation identified. Shoulder placed in a sling and ankle was wrapped in Ephraim wrap. R ICE injury management was discussed. Patient has pain medication at home prescribed to her by her PMD. We will follow-up with PMD on outpatient basis. Instructed to return with new or worsening symptoms. She understands and agrees with this treatment plan. Other X-Ray Diagnostic Results Other X-Ray Diagnostic Results #1: X-Ray ordered: Right shoulder # of Views/Limited Vs Complete: Complete Indication: Pain EP Interpretation: Yes Interpretation: no dislocation, no soft tissue swelling, no fractures Impression: No acute disease Electronically Signed by: Electronically signed by Dr. Preston Campa Other X-Ray Diagnostic Results #2: X-Ray ordered: Right ankle # of Views/Limited Vs Complete: 3 View Indication: Pain EP Interpretation: Yes Interpretation: no dislocation, no soft tissue swelling, no fractures Impression: No acute disease Electronically Signed by: Electronically signed by Dr. Preston Campa Last Vital Signs Date Time Temp Pulse Resp B/P (MAP) Pulse Ox O2 Delivery O2 Flow Rate FiO2 07/22/20 10:28 97.9 88 17 128/60 (82) 99 Room Air Disposition: HOME, SELF-CARE Condition: Stable Referrals: Мария Montoya MD (PCP) Preston Campa MD Jul 22, 2020 10:42
[2020-07-22] MEDS ORDERED: HYDROcodone/Acetamin 7.5/325 tab ORAL ONE (11:30)
--- NOTE | 2020-07-22 11:30 | NUR ---
ED Nurse Note: sling provided to right arm
[2020-07-22 12:08] VITALS: BP 120/60
--- NOTE | 2020-07-22 12:08 | NUR ---
ER DISCHARGE NOTE: Patient is cleared to be discharged per ERMD, pt is aox4, on room air, with stable vital signs. pt was given dc instructions, pt was able to verbalize understanding, pt id band removed without complications. pt is able to ambulate with steady gait with cane. pt took all belongings.
--- NOTE | 2020-07-22 12:23 | Diagnostic Imaging Report ---
EXAM: XR Right Shoulder Complete, 2 or More Views CLINICAL HISTORY: INJ TECHNIQUE: Two or more views of the right shoulder. COMPARISON: None FINDINGS: Bones/joints: No displaced fracture or dislocation identified. Mild degenerative changes of the right acromioclavicular joint. Soft tissues: Normal. IMPRESSION: No displaced fracture or dislocation identified.
--- NOTE | 2020-07-22 12:24 | Diagnostic Imaging Report ---
EXAM: XR Right Ankle Complete, 3 or More Views CLINICAL HISTORY: INJ TECHNIQUE: Frontal, lateral and oblique views of the right ankle. COMPARISON: None FINDINGS: Bones/joints: No displaced fracture or dislocation identified. Ankle mortise is intact. Osteopenia. Soft tissues: Mild soft tissue swelling. IMPRESSION: No displaced fracture or dislocation identified.
== END 2020-07-22 12:08 | disposition home or self-care (01) ==
LOC: EMR 10:36
DX: S93.401A Sprain of unspecified ligament of right ankle, initial encounter (principal); S40.011A Contusion of right shoulder, initial encounter; W19.XXXA Unspecified fall, initial encounter; Y92.9 Unspecified place or not applicable; I11.0 Hypertensive heart disease with heart failure; I50.9 Heart failure, unspecified; Z95.0 Presence of cardiac pacemaker; J44.9 Chronic obstructive pulmonary disease, unspecified; G40.909 Epilepsy, unspecified, not intractable, without status epilepticus; Z86.73 Personal history of transient ischemic attack (TIA), and cerebral infarction without residual deficits
CPT/HCPCS: 99284